=== PATIENT | male | born 1975 | race Caucasian/White ===

== ENCOUNTER 2021-02-12 10:49 | Outpatient (CLI) | payer OTHER, SELFPAY ==
[2021-02-12 11:20] LABS: Anion Gap 6 mmol/L (8-16); Blood Urea Nitrogen 22 mg/dL (9-20); Calcium 9.3 mg/dL (8.4-10.2); Carbon Dioxide 31 mmol/L (22-30); Chloride 103 mmol/L (98-107); Estimated Glomerular Filt Rate > 60; Glucose 109 mg/dL (65-110); Potassium 4.4 mmol/L (3.4-5.0); Sodium 140 mmol/L (137-145)
== END 2021-02-12 10:50 | disposition home or self-care (01) ==
LOC: ANHSURGERY 10:52
PROVIDERS: Anesthesiology; PCP Family Medicine; Visit Provider Surgery
DX: E11.9 Type 2 diabetes mellitus without complications (principal); Z01.818 Encounter for other preprocedural examination
CPT/HCPCS: 36415; 80048

== ENCOUNTER 2021-02-19 00:29 | Day surgery (SDC) | payer OTHER, SELFPAY ==
[2021-02-09 12:42] VITALS: BMI 29.2
[2021-02-19] VITALS (8 sets, daily range): BP systolic 101–128; BP diastolic 72–90; PULSE 62–87; RESP 12–16; TEMP 36.4–36.5; O2SAT 97–100; BMI 29.2
[2021-02-19 08:34] LABS: Glucose Point of Care 137 mg/dl (65-105)
--- NOTE | 2021-02-19 08:53 | WPDANESEPPF ---
Anes - Initial Pre Proc Eval Procedure: Operation Date: 02/19/21 10:00 Proposed Procedures p Excision Scalp Cyst Time Five - James Omer DO Date/Time: 02/19/21 08:53 Surgeon: James Omer DO Pre Op Diagnosis: multiple scalp cyst Patient Data Age: 45 Gender: M Height: 1.83 m Weight: 98 kg Allergies Allergy/AdvReac Type Severity Reaction Status Date / Time No Known Allergies Allergy Verified 02/09/21 12:38 Home Medications Medication Instructions Recorded Confirmed Type divalproex 500 mg tablet,extended 1,500 mg PO HS 01/18/21 02/09/21 History release 24 hr fenofibrate 50 mg capsule 50 mg PO HS 01/18/21 02/09/21 History metformin 1,000 mg tablet 1,000 mg PO HS 01/18/21 02/09/21 History rosuvastatin 20 mg tablet 20 mg PO HS 01/18/21 02/09/21 History melatonin 20 mg PO HS 02/09/21 02/09/21 History omeprazole 20 mg PO QA 02/09/21 02/09/21 History Laboratory Tests 02/19/21 08:30 POC Capillary Glucose 137 mg/dl H mg/dl (65-105) Patient hx anesthesia problems: none Family hx anesthesia problems: none Results Review: All pre-operative results and documents have been reviewed as part of the pre-operative evaluation. [facility] Past Medical History Medical History Asthma Bipolar disorder Depression Diabetes GERD (gastroesophageal reflux disease) High cholesterol Surgical History Surgical History H/O shoulder surgery Family History Family History Other Cancer Cerebrovascular accident Diabetes mellitus Hypertension Social History Social History Smoking packs per day: 0.5 Smoking cigarettes per day: 10.0 Years smoked: 12 Smoking pack-years: 6.00 Smoking status: Former smoker Tobacco type: cigarettes Smokeless tobacco user: chewing tobacco Smoking end date: 11/24/07 Alcohol intake: current Drinks per week: 16 Alcohol use details: social use Substance use: never Living arrangements: with family Additional living arrangements comments: , CHILD, NEPHEW 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 Informed Consent: The patient's anesthetic plan and its attendant risks and benefits were discussed with the patient/family/POA. Questions were solicited and answers provided to the satisfaction of the patient/family/POA.
[2021-02-19] MEDS: LACTATED RINGERS 1,000 ML 30 ML IV CONT ×2 (09:15→11:04)
--- NOTE | 2021-02-19 09:42 | PM.IMHP ---
H&P: HPI History of Present Illness Date/Time: 02/19/21 09:42 Chief Complaint: Scalp cysts Narrative: 45 yo man presents for excision of multiple scalp cysts. Denies any changes since last seen in office. Review of Systems Review of Systems: All systems reviewed & are unremarkable except as noted in HPI and below Constitutional: Constitutional: Denies chills, Denies fever(s), Denies headache(s) and Denies weight loss Eyes: Eyes: Denies change in vision ENT: Denies dizziness, Denies headache(s), Denies neck mass and Denies throat swelling Cardiovascular: Cardiovascular: Denies chest pain, Denies lightheadedness and Denies dyspnea Respiratory: Respiratory: Denies cough, Denies dyspnea and Denies wheezing Gastrointestinal: Gastrointestinal: Denies abdominal pain, Denies change in bowel habits, Denies nausea and Denies vomiting Genitourinary: Genitourinary: Denies hematuria and Denies dysuria Musculoskeletal: Musculoskeletal: Reports as per HPI Integumentary/Breasts: Skin/Breast: Reports as per HPI Neurologic: Denies dizziness and Denies headache(s) Allergic/Immunologic: Allergic/Immunologic: Denies throat swelling and Denies wheezing PMFSH Past Medical History Medical History Asthma Bipolar disorder Depression Diabetes GERD (gastroesophageal reflux disease) High cholesterol Surgical History Surgical History H/O shoulder surgery Family History Family History Other Cancer Cerebrovascular accident Diabetes mellitus Hypertension Social History Social History Smoking packs per day: 0.5 Smoking cigarettes per day: 10.0 Years smoked: 12 Smoking pack-years: 6.00 Smoking status: Former smoker Tobacco type: cigarettes Smokeless tobacco user: chewing tobacco Smoking end date: 11/24/07 Alcohol intake: current Drinks per week: 16 Alcohol use details: social use Substance use: never Living arrangements: with family Additional living arrangements comments: , CHILD, NEPHEW 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 Spiritual care concerns: No Meds Home Medications and Allergies Home Medications Medication Instructions Recorded Confirmed Type divalproex 500 mg tablet,extended 1,500 mg PO HS 01/18/21 02/09/21 History release 24 hr fenofibrate 50 mg capsule 50 mg PO HS 01/18/21 02/09/21 History metformin 1,000 mg tablet 1,000 mg PO HS 01/18/21 02/09/21 History rosuvastatin 20 mg tablet 20 mg PO HS 01/18/21 02/09/21 History melatonin 20 mg PO HS 02/09/21 02/09/21 History omeprazole 20 mg PO QA 02/09/21 02/09/21 History Allergies Allergy/AdvReac Type Severity Reaction Status Date / Time No Known Allergies Allergy Verified 02/19/21 09:37 Exam Const: General: no acute distress and alert Orientation/consciousness: patient oriented x3 HENMT: Head: normocephalic and atraumatic Ears: hearing grossly normal bilaterally General nose exam: Normal nares present Mouth: Yes Normal oral and palatal mucosa present Eyes: Periorbital: periorbital findings normal Sclera: sclerae normal EOM: EOMs intact bilaterally Neck: Neck: normal visual inspection, no lymphadenopathy and trachea midline Chest: Chest palpation & inspection: normal inspection of the chest Resp: Effort & Inspection: normal respiratory effort Auscultation: clear to auscultation bilaterally Cardio: Jugular venous distension: no JVD Rate: regular rate Rhythm: regular rhythm Heart sounds: S1 normal heart sound present and S2 normal heart sound present Peripheral pulses: Peripheral pulses 2+ throughout GI: Inspection: normal to inspection GI Palp: Yes Soft to palpation, No Tenderness to palpation present (GI), No Guarding due to palpation present
--- NOTE | 2021-02-19 09:50 | WPDHPUPDATE1 ---
History and Physical Update Update Date/Time: 02/19/21 09:50 History and Physical has been reviewed, including an updated exam of the patient. There are NO changes in the patient's condition. Risks, benefits, and alternatives have been discussed and questions answered. Patient agrees to proceed with procedure.
[2021-02-19] MEDS: ceFAZolin 2 GM/D5W 50 ML 2 GM/50 ML BAG IVPB (09:57)
[2021-02-19] MEDS: LIDO 1%/EPINEPHRINE/PF 1:200,000 30 ML VIAL XX (10:39)
[2021-02-19] MEDS: BACITRACIN/POLYMYXIN B OINT 15 GM TUBE 1 APPLIC TOPICAL (10:49)
--- NOTE | 2021-02-19 11:02 | W.PM.PROC2 ---
Procedure Note - Detailed Date of Procedure 02/19/21 Pre-op Diagnosis multiple scalp cyst Post-op Diagnosis same Procedure Performed Excision 2 cm scalp cyst Excision 1 cm scalp cyst x4 Surgeon James Omer, DO Anesthesia general and local (1% lidocaine with epinephrine) Indications This is a 45-year-old man who presented with multiple lumps on his scalp that had been present for about 10 years. These areas have gradually become larger over the years. He denies any prior history of infection or drainage. Discussions were made with the patient about treatment options and decision was made to proceed with excision of 5 scalp cysts. Findings Excision of the 5 scalp cysts was performed. One of the cysts was in the posterior auricular region but still within the hairline. The other 4 cysts were closer to the occiput. The largest cyst measured 2 cm, and the other 4 cysts measured 1 cm. All cysts were completely excised and sent to the lab for pathology. Description of Procedure Procedure as well as risks, benefits, and alternatives were discussed with the patient. Written consent was obtained and placed in chart prior to procedure. Patient was brought back to surgical suite. He was placed supine on operating table. Time-out was done to confirm patient and procedure. He was then placed under general anesthesia with LMA by the Anesthesia Department. His scalp area was then prepped and draped in sterile fashion using Betadine prep. 1% lidocaine with epinephrine was infiltrated locally around each of the cysts. A 1 cm incision was made overlying the right posterior auricular cyst with a 15 blade scalpel. The cyst was sharply excised with the 15 blade scalpel. The cyst was completely excised and sent to the lab for pathology. Electrocautery was then used for hemostasis. The skin edges were then reapproximated using 3-0 Prolene simple interrupted sutures. Another 1 cm incision was made over each of the other 3 scalp cysts using a 15 blade scalpel. All of these cysts were then also excised sharply with a 15 blade scalpel. Electrocautery was then used for hemostasis. The skin edges were then reapproximated using 3-0 Prolene simple interrupted sutures. The final 2 cm scalp cyst was then excised in a similar fashion. A 2 cm incision was made over this cyst using a 15 blade scalpel. The cyst was sharply excised and sent to the lab for pathology. Electrocautery was used for hemostasis. The skin edges were approximated using 3-0 Prolene simple interrupted sutures. All 5 incisions were then carefully inspected and hemostasis appeared adequate. Bacitracin ointment was then applied. The patient was then awakened from anesthesia, extubated, and transferred to recovery. Estimated Blood Loss 5 Pathology yes (Scalp cysts) Complications No immediate complications Condition stable Disposition same day
[2021-02-19 11:31] LABS: Glucose Point of Care 129 mg/dl (65-105)
[2021-02-19] MEDS: fentaNYL CITRATE INJ (*CRX) 100 MCG/2 ML VIAL 25 MCG IV PUSH ×2 (11:55→12:00)
[2021-02-19] MEDS: oxyCODONE HCL (*CRX) 5 MG TAB IR PO (12:50)
== END 2021-02-19 12:58 | disposition home or self-care (01) ==
PROVIDERS: PCP Family Medicine; Visit Provider Surgery
PROC: (CPT 11421; principal; 2021-02-19 10:00)
DX: L72.11 Pilar cyst (principal); J45.909 Unspecified asthma, uncomplicated; F31.9 Bipolar disorder, unspecified; K21.9 Gastro-esophageal reflux disease without esophagitis; E78.00 Pure hypercholesterolemia, unspecified; Z79.84 Long term (current) use of oral hypoglycemic drugs; F17.220 Nicotine dependence, chewing tobacco, uncomplicated
CPT/HCPCS: 11421; 11422; 36415; 80048; 82948; 88304; 88305; A9270; J0690; J1100; J2250; J2405; J2704; J3010; J7120

== ENCOUNTER 2021-12-07 01:22 | Day surgery (SDC) | payer OTHER, SELFPAY ==
[2021-11-22 14:09] VITALS: BMI 29.9
--- NOTE | 2021-12-06 15:35 | WPDANESEPPF ---
Anes - Initial Pre Proc Eval Procedure: Operation Date: 12/07/21 11:00 Proposed Procedures p Colonoscopy - Dewey Alexis MD <Oscar Del Castillo, DO - Last Filed: 12/06/21 15:36> Date/Time: 12/06/21 15:35 <Oscar Del Castillo, DO - Last Filed: 12/06/21 15:36> Surgeon: Dewey Alexis MD <Oscar Del Castillo, DO - Last Filed: 12/06/21 15:36> Pre Op Diagnosis: Rectal Bleed <Oscar Del Castillo DO - Last Filed: 12/06/21 15:36> Patient Data Age: 46 Gender: M Height: 1.83 m Weight: 100 kg <Oscar Del Castillo DO - Last Filed: 12/06/21 15:36> Allergies Allergy/AdvReac Type Severity Reaction Status Date / Time No Known Allergies Allergy Verified 12/07/21 09:52 <Oscar Del Castillo, DO - Last Filed: 12/06/21 15:36> Home Medications Medication Instructions Recorded Confirmed Type divalproex 500 mg tablet,extended 1,500 mg PO HS 01/18/21 12/07/21 History release 24 hr (Depakote ER) metformin 1,000 mg tablet 1,000 mg PO HS 01/18/21 12/07/21 History omeprazole 20 mg capsule,delayed 20 mg PO QAM 02/09/21 12/07/21 History release sodium sul 1.479 gram-potas ch See Rx Instructions PO PER PKG DIR 10/30/21 12/07/21 Rx 0.188 gram-magnes sul 0.225 gram #24 tabs tablet (Sutab) alprazolam 0.25 mg tablet (Xanax) 0.25 mg PO PRN PRN Anxiety 11/22/21 12/07/21 History fenofibrate 160 mg tablet 160 mg PO DAILY 11/22/21 12/07/21 History rosuvastatin 40 mg tablet 40 mg PO DAILY 11/22/21 12/07/21 History <Oscar Del Castillo, DO - Last Filed: 12/06/21 15:36> Patient hx anesthesia problems: none <Xuan Pineda CRNA - Last Filed: 12/07/21 10:22> Family hx anesthesia problems: none <Xuan Pineda CRNA - Last Filed: 12/07/21 10:22> Results Review: All pre-operative results and documents have been reviewed as part of the pre-operative evaluation. <Oscar Del Castillo DO - Last Filed: 12/06/21 15:36> [facility] Past Medical History Medical History: Medical History Asthma Bipolar disorder Depression Diabetes GERD (gastroesophageal reflux disease) High cholesterol <Oscar Del Castillo DO - Last Filed: 12/06/21 15:36> Surgical History Surgical History: Surgical History H/O excision of mass 02/19/21 Excision 2 cm scalp cyst, Excision 1 cm scalp cyst x4 H/O shoulder surgery <Oscar Del Castillo DO - Last Filed: 12/06/21 15:36> Family History Family History: Family History Other Cancer Cerebrovascular accident Diabetes mellitus Hypertension <Oscar Del Castillo DO - Last Filed: 12/06/21 15:36> Social History Social History: Social History Smoking packs per day: 0.5 Smoking cigarettes per day: 10.0 Years smoked: 12 Smoking pack-years: 6.00 Smoking status: Former smoker Tobacco type: cigarettes Smokeless tobacco user: chewing tobacco Smoking end date: 11/24/07 Alcohol intake: current Drinks per week: 16 Alcohol use details: social Substance use: never Substance use type: does not use Living arrangements: with family Additional living arrangements comments: , CHILD, NEPHEW 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
[2021-12-07 09:44] LABS: Glucose Point of Care 128 mg/dl (65-105)
[2021-12-07 09:50] VITALS: BP 119/85; PULSE 63; RESP 20; TEMP 36.3; O2SAT 98
[2021-12-07] MEDS: LACTATED RINGERS 1,000 ML 150 ML IV CONT (10:04)
--- NOTE | 2021-12-07 10:24 | PM.HPGS ---
History of Present Illness History of Present Illness Consent: Risks, benefits, and alternatives have been discussed and questions answered. Patient agrees to proceed with procedure. Chief complaint: Rectal Bleed Narrative: Judson Sena is a 46 year old male with intermittent blood in stool, last colonoscopy about 10 years ago. Father had colon cancer. Review of Systems Constitutional: Constitutional: Denies headache(s) and Denies weakness Eyes: Eyes: Denies blurry vision ENT: Reports Normal hearing present, Denies headache(s) and Denies neck pain Cardiovascular: Cardiovascular: Denies chest pain and Denies dyspnea Respiratory: Respiratory: Denies dyspnea Gastrointestinal: Gastrointestinal: Reports no additional gastrointestinal complaints Genitourinary: Genitourinary: Denies dysuria Musculoskeletal: Musculoskeletal: Denies neck pain Integumentary/Breasts: Skin/Breast: Denies dry skin Neurologic: Reports Normal hearing present, Denies headache(s) and Denies weakness Psychiatric: Psychiatric: Denies anxiety Endocrine: Endocrine: Denies change in body appearance Hematologic/Lymphatic: Hematologic/Lymphatic: Denies easy bleeding Allergic/Immunologic: Allergic/Immunologic: Denies urticaria PMF Past Medical History Medical History (Updated 12/07/21 @ 10:25 by Dewey Alexis MD) Asthma Bipolar disorder Depression Diabetes Family history of colon cancer in father GERD (gastroesophageal reflux disease) Hematochezia High cholesterol Surgical History Surgical History H/O excision of mass 02/19/21 Excision 2 cm scalp cyst, Excision 1 cm scalp cyst x4 H/O shoulder surgery Family History Family History Other Cancer Cerebrovascular accident Diabetes mellitus Hypertension Social History Social History Smoking packs per day: 0.5 Smoking cigarettes per day: 10.0 Years smoked: 12 Smoking pack-years: 6.00 Smoking status: Former smoker Tobacco type: cigarettes Smokeless tobacco user: chewing tobacco Smoking end date: 11/24/07 Alcohol intake: current Drinks per week: 16 Alcohol use details: social Substance use: never Substance use type: does not use Living arrangements: with family Additional living arrangements comments: , CHILD, NEPHEW 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 care concerns: No Meds Home Medications and Allergies Home Medications Medication Instructions Recorded Confirmed Type divalproex 500 mg tablet,extended 1,500 mg PO HS 01/18/21 12/07/21 History release 24 hr (Depakote ER) metformin 1,000 mg tablet 1,000 mg PO HS 01/18/21 12/07/21 History omeprazole 20 mg capsule,delayed 20 mg PO QAM 02/09/21 12/07/21 History release sodium sul 1.479 gram-potas ch See Rx Instructions PO PER PKG DIR 10/30/21 12/07/21 Rx 0.188 gram-magnes sul 0.225 gram #24 tabs tablet (Sutab) alprazolam 0.25 mg tablet (Xanax) 0.25 mg PO PRN PRN Anxiety 11/22/21 12/07/21 History fenofibrate 160 mg tablet 160 mg PO DAILY 11/22/21 12/07/21 History rosuvastatin 40 mg tablet 40 mg PO DAILY 11/22/21 12/07/21 History Allergies Allergy/AdvReac Type Severity Reaction Status Date / Time No Known Allergies Allergy Verified 12/07/21 09:52 Vital Signs Vital Signs - 24 hr 12/07/21 09:50 Temperature 97.4 F L Pulse Rate 63 Respiratory Rate 20 Blood Pressure 119/85 Pulse Oximetry 98 Oxygen Delivery Room Air Exam Const: General: comfortable and no acute distress HENMT: General nose exam: Normal nares present Eyes: General: appearance normal, both eyes and all related structures Neck: Neck: no JVD Resp: Auscultation: clear to auscultation bilaterally Cardio: Rate: regular rate Rhythm: regular rhythm GI: Inspection: non-
[2021-12-07 10:44] VITALS: BP 114/82; PULSE 73; RESP 22; O2SAT 97
[2021-12-07 10:54] VITALS: BP 117/84; PULSE 62; RESP 23; O2SAT 100
[2021-12-07 11:04] VITALS: BP 131/94; PULSE 61; RESP 19; O2SAT 99
== END 2021-12-07 11:12 | disposition home or self-care (01) ==
PROVIDERS: PCP Family Medicine; Visit Provider Internal Medicine Gastroenterology
PROC: 0DJD8ZZ Inspection of Lower Intestinal Tract, Via Natural or Artificial Opening Endoscopic (ICD-10-PCS; CPT 45378; principal; 2021-12-07 11:00)
DX: K51.20 Ulcerative (chronic) proctitis without complications (principal); K57.30 Diverticulosis of large intestine without perforation or abscess without bleeding; K64.8 Other hemorrhoids; Z80.0 Family history of malignant neoplasm of digestive organs; F31.9 Bipolar disorder, unspecified; E11.9 Type 2 diabetes mellitus without complications; K21.9 Gastro-esophageal reflux disease without esophagitis; E78.00 Pure hypercholesterolemia, unspecified; Z79.84 Long term (current) use of oral hypoglycemic drugs; F17.220 Nicotine dependence, chewing tobacco, uncomplicated
CPT/HCPCS: 45380; 82948; 88305; J2704; J7120

== ENCOUNTER 2023-09-07 11:56 | Inpatient (IN) | payer OTHER, SELFPAY ==
[2023-09-07] VITALS (8 sets, daily range): BP systolic 94–127; BP diastolic 61–96; PULSE 67–79; RESP 12–18; TEMP 36.1–36.5; O2SAT 97–100; BMI 24.2
--- NOTE | ~2023-09-07 | US_ITS ---
EXAMINATION: US abdomen limited DATE: 09/07/2023 12:56 INDICATION: Abdominal/epigastric pain. TECHNIQUE: Multiple grayscale and Doppler ultrasound images of the abdomen were obtained. COMPARISON: The visualized body and tail of the pancreas appear heterogeneous with relatively hypoech oic which could be seen with edema in the setting of acute interstitial pancreatitis. Liver has michelle l echogenicity and contour, with a smooth surface. No liver lesion identified. No intrahepatic biliar y duct dilation suspected. Portal venous flow was seen in the hepatopetal, normal direction and has n ormal Doppler waveform. The gallbladder is normal in appearance. There is no cholelithiasis. The com mon bile duct measures 4 mm, which is normal. Sonographic Steward sign was reported as negative by the patient support partner.The visualized proximal inferior vena cava is normal. Abdominal aorta is normal measurin g approximately 2.2 cm approximately tapering to 1.6 cm the distal aorta. Visualized portion of the r ight kidney demonstrates normal echogenicity and contour with no hydronephrosis. FINDINGS: Heterogeneously hypoechoic pancreas which could be seen with acute interstitial pancreatitis. Otherwi se unremarkable right upper quadrant ultrasound with no cholelithiasis. IMPRESSION: 1. Reviewed, dictated and finalized at location A. IMPRESSION: 1.
--- NOTE | ~2023-09-07 | CT_ITS ---
EXAMINATION: CT abdomen pelvis w con DATE: 09/07/2023 13:00 INDICATION: Abdominal pain TECHNIQUE: Computed tomography (CT) of the abdomen and pelvis was performed with 100 mL Omnipaque-350 intravenous contrast. Automated exposure control and iterative reconstruction technique were employe d. The dose-length product was 487.86 mGy-cm. COMPARISON: None FINDINGS: Lung bases are clear. Heart size is normal. No pericardial or pleural effusion. Focal hepatic steatos is at the ligamentum teres. Gallbladder, spleen, bilateral adrenal glands and kidneys are normal. Yee creas appears normal but with subtle stranding of the peripancreatic fat consistent with acute inters titial pancreatitis. No discrete peripancreatic fluid collections identified. There is diffuse edemat ous-appearing wall thickening in the rectum and sigmoid colon consistent with colitis. Multiple mildl y enlarged perirectal and inferior mesenteric chain lymph nodes which are likely reactive. The gas an d fluid-filled appendix measures up to 9 mm with mild thickening and hyperemia of the appendiceal wal l and mild associated inflammatory stranding also raising concern for acute appendicitis. Additional enlarged pericecal and ileocolic chain lymph nodes which extend cephalad to the root of the mesentery . No bowel obstruction. Bladder is normal. Prostatomegaly. No abscess or free intraperitoneal gas or fluid. Mild bilateral hip and sacral iliac osteoarthritis. IMPRESSION: 1. Acute interstitial pancreatitis. 2. Distal colitis which could be either infectious or inflammatory in etiology. 3. Findings suspicious for acute appendicitis. . 4. Extensive intra-abdominal and pelvic lymphadenopathy which could be reactive although differential includes lymphoma or metastatic disease. Reviewed, dictated and finalized at location A.
--- NOTE | 2023-09-07 12:13 | ED.ABDPAIN ---
HPI - Abdominal Pain General Chief Complaint: Abdominal Pain Stated Complaint: abd pain Time Seen by Provider: 09/07/23 12:13 History of Present Illness HPI narrative: Patient is a 48-year-old male with history of type 2 diabetes I taking monjourno, suspected IBD, currently not taking any medications here with abdominal pain. Patient states that for the last month he has had intermittent flares of abdominal pain. He states that the current flare has been present for about 1 week, is diffuse and last night and this morning had episodes of sharp epigastric abdominal pain. He describes it as a ?burning sensation ?throughout his abdomen. He denies any fever or chills. He has had some weight loss but was additionally started on monjourno so he is unsure if that was a contributing factor. He notes that he has approximately 5-10 loose stools a day, he notes that every other stool has blood in the stool. He does wake up during the middle the night to have bowel movements. Appears he saw Dr. Montes, was scoped in 2021, suspected to have IBD, was initially on mesalamine, it was discussed to start him on Humira however patient was unsure and he had been lost to follow-up. He is not currently taking any medications. He does note that he has an appointment with Dr. Montes tomorrow. He denies dysuria, notes decreased urinary output due to feeling dehydrated. He does note significant nausea, no vomiting. Patient's last PO intake was around 10:30 am when he drank a protein shake. Related Data Home Medications Medication Instructions Recorded Confirmed divalproex 500 mg tablet,extended 1,500 mg PO HS 01/18/21 01/03/22 release 24 hr (Depakote ER) metformin 1,000 mg tablet 1,000 mg PO HS 01/18/21 01/03/22 omeprazole 20 mg capsule,delayed 20 mg PO QAM 02/09/21 01/03/22 release alprazolam 0.25 mg tablet (Xanax) 0.25 mg PO PRN PRN Anxiety 11/22/21 01/03/22 fenofibrate 160 mg tablet 160 mg PO DAILY 11/22/21 01/03/22 pravastatin 20 mg tablet 20 mg PO DAILY 01/03/22 01/03/22 Allergies Allergy/AdvReac Type Severity Reaction Status Date / Time No Known Allergies Allergy Verified 04/04/22 14:12 Review of Systems Review of Systems: All systems reviewed & are unremarkable except as noted in HPI and below PMFSH Past Medical History Medical History (Updated 09/07/23 @ 15:26 by Allie Eller APRN) Asthma Bipolar disorder Depression Diabetes Family history of colon cancer in father GERD (gastroesophageal reflux disease) Hematochezia High cholesterol Proctitis Surgical History Surgical History H/O excision of mass 02/19/21 Excision 2 cm scalp cyst, Excision 1 cm scalp cyst x4 H/O shoulder surgery Family History Family History Other Cancer Cerebrovascular accident Diabetes mellitus Hypertension Social History Social History Smoking packs per day: 0.5 Smoking cigarettes per day: 10.0 Years smoked: 12 Smoking pack-years: 6.00 Smoking status: Former smoker Tobacco type: cigarettes Smokeless tobacco user: chewing tobacco Smoking end date: 11/24/07 Alcohol intake: current Drinks per week: 16 Alcohol use details: social Substance use: never Substance use type: does not use Living arrangements: with family Additional living arrangements comments: , CHILD, NEPHEW Occupation/Education: occupation 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 HEAD: Normocephalic, atraumatic. EYES: PERRLA and EOMI. ENT: Nares clear. Mucous membranes moist. NECK: Supple. CHEST: Clear to auscultation. No respiratory distress. HEART: Regular rate and rhythm. Normal peripheral pulses. ABDOMEN: Soft, epigastr
[2023-09-07 12:28] LABS: Appearance Urine Clear (Clear); Bilirubin Urine Negative (Negative); Blood Urine Negative (Negative); Color Urine Yellow (Yellow); Glucose Urine UA 2+ mg/dL (Negative); Ketones Urine Negative (Negative); Leukocyte Esterase Ur Negative LEU/UL (Negative); Nitrate Urine Negative (Negative); Protein Urine Negative (Negative); Specific Grav Ur 1.026 (1.001-1.035); Urobilinogen Urine 0.2 mg/dL (<2.0)
[2023-09-07 12:30] LABS: Add Urine Microscopic? NO
[2023-09-07 12:35] LABS: Basophils Absolute Auto 0.1 K/mm3 (0.0-0.1); Basophils Percent Auto 0.4 % (0.2-1.2); Eosinophils Absolute Auto 0.4 K/mm3 (0-0.3); Eosinophils Percent Auto 3.7 % (0-4.4); Hematocrit 41.1 % (42.0-52.0); Hemoglobin 13.5 g/dL (14.0-18.0); Immature Granulocyte Absolute 0.14 K/mm3 (0.00-0.031); Immature Granulocyte Percent A 1.3 % (0-0.5); Lymphocytes Absolute Auto 2.39 K/mm3 (0.9-3.2); Lymphocytes Percent Auto 21.5 % (18.3-44.2); Mean Corpuscular HGB Conc 32.8 g/dl (32-36); Mean Corpuscular Hemoglobin 29.1 pg (26-34); Mean Corpuscular Volume 88.6 fl (80-100); Mean Platelet Volume 10.2 fl (7.4-10.4); Monocytes Percent Auto 9.2 % (2.6-8.5); Neutrophils Absolute Auto 7.1 K/mm3 (1.3-6.7); Neutrophils Percent Auto 63.9 % (45.5-73.1); Platelet Count Result 302 k/mm3 (150-375); Red Blood Count 4.64 M/mm3 (4.6-6.20); Red Cell Distribution Width 12.4 % (11.5-14.5); White Blood Count 11.1 K/mm3 (4.5-10.0)
[2023-09-07 12:48] LABS: Lactic Acid Reflex 1.4 mmol/L (0.7-2.0)
[2023-09-07 12:50] LABS: Alanine Aminotransferase 12 U/L (6-50); Albumin Level 4.5 g/dL (3.5-5.1); Alkaline Phosphatase 53 U/L (38-126); Anion Gap 10 mmol/L (4-12); Aspartate Amino Transferase 15 U/L (17-59); Bilirubin,Total 0.4 mg/dL (0.2-1.3); Blood Urea Nitrogen 15 mg/dL (9-20); CRP 1.2 mg/dL (<1.0); Calcium 9.6 mg/dL (8.4-10.2); Carbon Dioxide 25 mmol/L (22-30); Chloride 103 mmol/L (98-107); Estimated CRCL calculation 110 ml/min; Estimated Glomerular Filt Rate > 60; Glucose 202 mg/dL (65-110); Lipase 707 U/L (23-300); Potassium 4.3 mmol/L (3.4-5.0); Sodium 138 mmol/L (137-145)
[2023-09-07] MEDS: LACTATED RINGERS 1,000 ML 999 ML IV CONT (13:10)
[2023-09-07] MEDS: MORPHINE SULFATE (*CRX) 4 MG/ML INJ IV PUSH (13:10)
[2023-09-07] MEDS: ONDANSETRON INJ 4 MG/2 ML VIAL IV PUSH (13:10)
--- NOTE | 2023-09-07 14:23 | PM.IMHP ---
H&P: HPI History of Present Illness Date/Time: 09/07/23 14:23 Chief Complaint: Abdominal Pain Narrative: 48 y/o M presents here with abdominal pain with PMH of IBD, diverticulosis, GERD, HLD, DM2, asthma, depression, and bipolar disorder. Patient presents here for further evaluation of intermittent abdominal pain for the past 2 years and more pronounced in the last month. However the abdominal pain has become constant for the past week, severe, upper abdomen, diffuse, described as crampy/burning, and with radiation into his shoulder blades. No alleviating or aggravating factors. Reports weight loss - 50 lbs, however is on Mounjaro 6-9 months ago. Titrated to 0.75 1 month ago. Has been experiencing 5-10 loose stools daily, BRB NE with clots and no dark/black stools. Stools have become holley in the last 2 weeks. Nighttime awakenings for bowel movements - has been ongoing since diagnosis of IBD and is intermittent. Reports associated dehydration, nausea without vomiting, and reduced urinary output in the last week. No associated hematuria or dysuria. Patient follows with Dr. Montes (GI) at [facility], last scope in 2021 which showed suspected IBD. Has been on mesalamine, GI discussed starting Humira with patient, however he was hesitant to start this medication and was lost to follow-up. Patient was not happy with care because lifestyle and diet were not presented as potential alternatives to meds. Does have scheduled follow-up with Dr. Montes tomorrow. Reports he is not currently on any medications for his IBD. ETOH hx - weekends patient would drink to excess at least one night for the past 25 years and now drinks one night per week and its 1-2 drinks only. Initial VS at presentation: 97.7? F, HR 79, RR 14, 126/96, and 100% on RA. ED workup showed: WBC 11.1, Hgb 13.5, no significant electrolyte derangements, glucose 202, creatinine 0.8 and GFR >60, AST 15, CRP 1.2, and lipase 707. UA not suggestive of UTI. There CT abdomen/pelvis showed acute interstitial pancreatitis, distal colitis, possible acute appendicitis, and extensive intra-abdominal and pelvic lymphadenopathy. Review of Systems Review of Systems: All systems reviewed & are unremarkable except as noted in HPI and below PMFSH Past Medical History Medical History (Updated 09/08/23 @ 00:38 by Allie Eller APRN) Asthma Bipolar disorder Depression Diabetes Familial hypertriglyceridemia Family history of colon cancer in father GERD (gastroesophageal reflux disease) Hematochezia Proctitis Surgical History Surgical History H/O excision of mass 02/19/21 Excision 2 cm scalp cyst, Excision 1 cm scalp cyst x4 H/O shoulder surgery Family History Family History Other Cancer Cerebrovascular accident Diabetes mellitus Hypertension Social History Social History Smoking packs per day: 0.5 Smoking cigarettes per day: 10.0 Years smoked: 12 Smoking pack-years: 6.00 Smoking status: Current every day smoker Tobacco type: e-cigarettes/vaping Smokeless tobacco user: chewing tobacco Alcohol intake: current Drinks per week: 16 Alcohol use details: social Substance use: never Substance use type: does not use Do You Feel Safe in your Home?: Yes Lack of Transportation: No Lack of Food: Never True Current Housing: I Have Housing Concerned About Future Housing: No Difficulty Paying Gas/Electric Bills: No Difficulty Paying for Meds: No Currently Unemployed: No Education: Decline to Answer Difficulty w/ Childcare or Family Care: No Living arrangements: with family Additional living arrangements comments: , CHILD, [place] Occupation/Education: occupation 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
[2023-09-07] MEDS: PIPERACILLIN/TAZ 4.5G/NS 100ML 4.5 GM/100 ML BAG IVPB (14:39)
--- NOTE | 2023-09-07 16:01 | PC.NURSE ---
This patient, Judson Sena, was admitted to [facility] Surg Room 328-01. Patient/family oriented to hospital policies and general routines including ID bracelet, bed and alarms, visiting hours, pain management, procedures, bathroom and other care routines, personal items, smoking policy, room service/diet, and visiting hours. Information on how to activate the Rapid Response Team has been discussed. Patient/Family are encouraged to report perceived risks to care and to ask questions if they do not understand what they are told or what they should do.
[2023-09-07] MEDS: LACTATED RINGERS 1,000 ML 100 ML IV CONT (16:22)
[2023-09-07] MEDS: MORPHINE SULFATE (*CRX) 2 MG/ML INJ IV PUSH (16:23)
[2023-09-07] MEDS: PIPERACILLN/TAZ 3.375GM/NS50ML 3.375 GM/50 ML BAG IVPB (20:32)
[2023-09-07] MEDS: NICOTINE (*PBKC) 14 MG PATCH 1 PATCH TRANSDERM (22:11)
[2023-09-07] MEDS: HYDROcodone/acetaminophen (*CRX) 5-325 MG TABLET 1 TAB PO (22:15)
[2023-09-08] MEDS: PIPERACILLN/TAZ 3.375GM/NS50ML 3.375 GM/50 ML BAG IVPB ×4 (00:24→18:04)
[2023-09-08] MEDS: LACTATED RINGERS 1,000 ML 100 ML IV CONT (04:05)
[2023-09-08] MEDS: MORPHINE SULFATE (*CRX) 2 MG/ML INJ IV PUSH (05:04)
[2023-09-08 06:00] VITALS: BP 129/63; PULSE 73; RESP 18; TEMP 36.5; O2SAT 97
[2023-09-08 06:00] LABS: Basophils Percent Auto 0.3 % (0.2-1.2); Eosinophils Absolute Auto 0.4 K/mm3 (0-0.3); Eosinophils Percent Auto 3.5 % (0-4.4); Hematocrit 34.1 % (42.0-52.0); Immature Granulocyte Absolute 0.07 K/mm3 (0.00-0.031); Immature Granulocyte Percent A 0.6 % (0-0.5); Lymphocytes Absolute Auto 1.81 K/mm3 (0.9-3.2); Lymphocytes Percent Auto 16.7 % (18.3-44.2); Mean Corpuscular HGB Conc 32.3 g/dl (32-36); Mean Corpuscular Hemoglobin 29.3 pg (26-34); Mean Corpuscular Volume 90.7 fl (80-100); Mean Platelet Volume 10.6 fl (7.4-10.4); Monocytes Absolute Auto 1.1 K/mm3 (0.1-0.6); Monocytes Percent Auto 10.1 % (2.6-8.5); Neutrophils Absolute Auto 7.4 K/mm3 (1.3-6.7); Neutrophils Percent Auto 68.8 % (45.5-73.1); Platelet Count Result 253 k/mm3 (150-375); Red Blood Count 3.76 M/mm3 (4.6-6.20); Red Cell Distribution Width 12.2 % (11.5-14.5); White Blood Count 10.8 K/mm3 (4.5-10.0)
[2023-09-08 06:15] LABS: Alanine Aminotransferase 13 U/L (6-50); Albumin Level 3.6 g/dL (3.5-5.1); Alkaline Phosphatase 44 U/L (38-126); Anion Gap 8 mmol/L (4-12); Aspartate Amino Transferase 17 U/L (17-59); Bilirubin,Total 0.5 mg/dL (0.2-1.3); Blood Urea Nitrogen 13 mg/dL (9-20); Calcium 9.1 mg/dL (8.4-10.2); Carbon Dioxide 26 mmol/L (22-30); Chloride 103 mmol/L (98-107); Cholesterol 117 mg/dL (0-200); Estimated CRCL calculation 90 ml/min; Estimated Glomerular Filt Rate > 60; Glucose 129 mg/dL (65-110); HDL Direct 30 mg/dL; Lipase 550 U/L (23-300); Sodium 137 mmol/L (137-145); Triglycerides 149 mg/dL (<150)
[2023-09-08 06:26] LABS: LDL Cholesterol Direct 66 mg/dL
[2023-09-08 07:48] LABS: Glucose Point of Care 116 mg/dl (65-105)
[2023-09-08] MEDS: PANTOPRAZOLE SODIUM IV 40 MG VIAL IV PUSH (07:51)
[2023-09-08] MEDS: FENOFIBRATE 160 MG TABLET PO (07:51)
[2023-09-08] MEDS: NICOTINE (*PBKC) 14 MG PATCH 1 PATCH TRANSDERM (07:51)
--- NOTE | 2023-09-08 08:08 | P.CONGI_ITS ---
I, Dewey Alexis MD, have provided a substantive portion of the care of this patient and discussed the patient with my Nurse Practitioner. I have reviewed any new relevant radiographic and laboratory results including medications. I agree with her documentation as noted below.?I personally performed the medical decision making and much of the history and exam for this encounter. briefly, he was diagnosed with ulcerative proctitis 2021, used mesalamine briefly without improvement. Then I suggested to use biologic such as humira but he was reluctant about it and never came back. He has been having urgency, rectal bleeding and diarrhea daily for last year 7-8 times a day, lately more discomfort and abdominal pain. Here also diagnosed with distal colitis and pancreatitis, he drinks alcohol but mostly weekends. Here noted more anemia than baseline, started on iv abx, surgery on board (abdomen is benign, no clinical signs of appy), he is comfortable and already tolerated liquid diet. Plan is to use mesalamine enema, pending stool culture, probably will give one dose iv steroid (he has DM and I prefer without steroid), pending TB and HBV status- this time around he is agreeable to use biologic, he is ok with humira (he was using mounjaro for DM)- this medication also was discontinued given his GI symptoms. Advance diet and probably home soon, will need colonoscopy in 3-4 weeks and will submit to his insurance humira, other option is velsipity to treat proctitis Assessment and Plan Assessment and plan (1) Abnormal finding on CT scan: Code(s): R93.89 - Abnormal findings on diagnostic imaging of other specified body structures Status: Acute (2) Pancreatitis: Code(s): K85.90 - Acute pancreatitis without necrosis or infection, unspecified Status: Acute (3) Colitis: Code(s): K52.9 - Noninfective gastroenteritis and colitis, unspecified Status: Acute (4) Abdominal pain: Code(s): R10.9 - Unspecified abdominal pain Status: Acute (5) Family history of colon cancer: Code(s): Z80.0 - Family history of malignant neoplasm of digestive organs Status: Acute Plan 1) Abdominal pain/ abnormal imaging digestive / ulcerative proctitis/ diarrhea / hematochezia/ family Hx of colon cancer: Last colonoscopy 12/07/2021 showed diverticulosis, ulcerative proctitis and internal hemorrhoids. Family Hx of colon cancer ( father dx in his 50's) and gastric cancer ( paternal grandfather). Patient took oral mesalamine for 2 months before self disco ntinuing due to lack of symptom improvement. He has been trying to manage symptoms with diet and probiotics. He has been having increasing episodic abdominal pain over the past month, last episode of severe pain was on Friday prior to admission. Abdominal pain has been BUQ and radiating to his lower abdomen. He is having 5-10 liquid BM's daily with urgency and occasional fecal incontinence and nocturnal diarrhea. He is having painless bright red blood and clots per rectum with almost every BM. Denies fever or joint pain. Symptoms seemed to increase after his Mounjaro dose was increased, last injection was [address] on admission showed distal colitis, possible acute appendicitis, and extensive intra-abdominal and pelvic lymphadenopathy. CRP mildly elevated at 1.2. Gallbladder in situ. Hepatitis panel was negative in March 2023, TB testing not completed. -Continue antibiotics -Stool studies ordered to rule out infectious etiology, if negative will consider starting steroids -Calprotectin, elastase, ESR ordered -Daily mesalamine enemas ordered -Discussed outpatient follow up for IBD management and discuss the possible
--- NOTE | 2023-09-08 08:08 | WPDGICN ---
Assessment and Plan Assessment and plan (1) Abnormal finding on CT scan: Code(s): R93.89 - Abnormal findings on diagnostic imaging of other specified body structures Status: Acute (2) Pancreatitis: Code(s): K85.90 - Acute pancreatitis without necrosis or infection, unspecified Status: Acute (3) Colitis: Code(s): K52.9 - Noninfective gastroenteritis and colitis, unspecified Status: Acute (4) Abdominal pain: Code(s): R10.9 - Unspecified abdominal pain Status: Acute (5) Family history of colon cancer: Code(s): Z80.0 - Family history of malignant neoplasm of digestive organs Status: Acute Plan 1) Abdominal pain/ abnormal imaging digestive / ulcerative proctitis/ diarrhea / hematochezia/ family Hx of colon cancer: Last colonoscopy 12/07/2021 showed diverticulosis, ulcerative proctitis and internal hemorrhoids. Family Hx of colon cancer ( father dx in his 50's) and gastric cancer ( paternal grandfather). Patient took oral mesalamine for 2 months before self discontinuing due to lack of symptom improvement. He has been trying to manage symptoms with diet and probiotics. He has been having increasing episodic abdominal pain over the past month, last episode of severe pain was on Friday prior to admission. Abdominal pain has been BUQ and radiating to his lower abdomen. He is having 5-10 liquid BM's daily with urgency and occasional fecal incontinence and nocturnal diarrhea. He is having painless bright red blood and clots per rectum with almost every BM. Denies fever or joint pain. Symptoms seemed to increase after his Mounjaro dose was increased, last injection was [address] on admission showed distal colitis, possible acute appendicitis, and extensive intra-abdominal and pelvic lymphadenopathy. CRP mildly elevated at 1.2. Gallbladder in situ. Hepatitis panel was negative in March 2023, TB testing not completed. -Continue antibiotics -Stool studies ordered to rule out infectious etiology, if negative will consider starting steroids -Calprotectin, elastase, ESR ordered -Daily mesalamine enemas ordered -Discussed outpatient follow up for IBD management and discuss the possible need to start a biologic. -Surgery on the case for possible appendicitis -TB QuantiFERON ordered 2) Pancreatitis: CT showed acute interstitial pancreatitis. Lipase improving since admission 707-->550. Patient admits to bilateral upper abdominal pain that recently seemed to get worse after eating fatty foods. LFT's normal. Pain has improved but not resolved since admission. Patient admits to social alcohol use more on the weekends but has been decreasing alcohol use recently. -Continue supportive care 3) Reflux: Patient admits to reflux that has been well controlled with omeprazole 20 mg BID. Patient has never had an EGD. -Continue PPI -T/C outpatient EGD which we can further discuss during outpatient visit GI Consult Note Consult date/time: 09/08/23 08:08 Reason for consult: Pancreatitis and proctitis HPI: Judson Sena is a 48 year old male who presented to the ER yesterday with complaints of acute on chronic abdominal pain. Past medical surgical history includes asthma, bipolar disorder, depression, diabetes, GERD and family history of colon cancer. GI consult for pancreatitis proctitis noted on imaging. Patient was last seen by GI during a hospitalization in November 2021 at which time he had a colonoscopy and was diagnosed with ulcerative proctitis. Patient was prescribed mesalamine 2.4 gm daily which he took for around 2 months before self discontinuing and he has been trying to manage symptoms with diet and probiotics. Labs were recently ordered for biologic work up and Hepatitis panel negative, TB not completed. Patient admits to abdominal pain that has been mostly in his upper abdomen but can radiate throughout his abdomen. Admits to intermittent nausea without vomiting that gets wors
[2023-09-08] MEDS: ACETAMINOPHEN 325 MG TABLET 650 MG PO (10:14)
--- NOTE | 2023-09-08 10:39 | PM.CNGS ---
Assessment and Plan Assessment and plan (1) Colitis: Code(s): K52.9 - Noninfective gastroenteritis and colitis, unspecified Status: Acute Assessment and Plan: Continue antibiotics, GI consulted, stool studies pending (2) Pancreatitis: Code(s): K85.90 - Acute pancreatitis without necrosis or infection, unspecified Status: Acute Assessment and Plan: Etiology unclear. No cholelithiasis on ultrasound. Could be related to alcohol use, although patient states he has decreased his alcohol use significantly over the past year. Recommended still to stop drinking. Triglycerides normal. Although rare, could be related to his diabetic medication, he is taking a GLP-1 agonist. Could be worth switching to a different diabetic medication to eliminate this as a potential etiology. Management per hospitalist. Lipase trending down to 500 today. Continue IV fluids, okay to start clear liquids. (3) Abnormal finding on CT scan: Code(s): R93.89 - Abnormal findings on diagnostic imaging of other specified body structures Status: Acute Assessment and Plan: CT scan shows acute interstitial pancreatitis, colitis of the sigmoid colon and rectum, and a mildly dilated appendix with mild inflammatory changes that are suspicious for acute appendicitis. Clinically, the patient's presentation and exam correlate more with a flare-up of his IBD, as well as pancreatitis. He is mostly tender across the upper abdomen on exam. No significant right lower quadrant abdominal tenderness, and no peritoneal signs. Discussed treatment options with the patient in detail. Given his presentation and other acute issues, it would be reasonable to treat conservatively with IV antibiotics and closely monitor. Will continue to monitor with serial abdominal exams and labs. Patient understands and agrees. No plans for surgical intervention at this time. Okay to start a diet from our standpoint. (4) Diabetes: Code(s): E11.9 - Type 2 diabetes mellitus without complications Status: Acute Plan I have discussed the patient's case and plan of care with Dr. Mckenzie. Thank you for allowing us to see the patient in consultation and we will continue to follow along with you. History of Present Illness Consult details Consult date: 09/08/23 Reason for consult: other (Possible appendicitis) Requesting physician: Ronda Dumont MD Narrative: This is a 48-year-old man with a history of IBD, type 2 diabetes, who we have been asked to see in surgical consultation for possible appendicitis. He had a colonoscopy in 2021 that showed ulcerated proctitis. He was started on mesalamine. He fell out of follow-up with GI and tried to alter his diet. He also has a history of type 2 diabetes and was started on tirzepatide about a year ago. He has lost 60 lbs in the last year and attributed this to the medication. Over the past month, he reports more cramping abdominal pain and worsening diarrhea. He reports always having diarrhea, but has recently notice more blood in his stool. Over the past week, symptoms have become more severe. He was having more epigastric and upper abdominal pain. He reports the pain as burning pain radiating across his upper abdomen and burning. No nausea or vomiting. He presented to the ER yesterday for his persistent symptoms. Labs showed a white blood cell count 06005, CRP 1.2, lipase 700. LFTs normal. CT scan of the abdomen and pelvis showed acute interstitial pancreatitis, distal colitis of the sigmoid and rectum, extensive intra-abdominal and pelvic lymphadenopathy which could be reactive or other differential includes lymphoma or metastatic disease, and findings is for acute appendicitis. Patient was admitted and started on IV Zosyn and IV fluids. He is currently NPO. Labs this morning shows white blood cell count was down to the 10,000 and lipase 550. Triglycerides normal. He denies a history of pancreatitis. He repor
[2023-09-08 11:34] LABS: Glucose Point of Care 103 mg/dl (65-105)
[2023-09-08 12:03] LABS: Erythrocyte Sedimentation Rate 16 mm/hr (0-20)
[2023-09-08 13:34] VITALS: BMI 24.2
[2023-09-08 14:00] VITALS: BP 102/58; PULSE 62; RESP 16; TEMP 36.5; O2SAT 99
[2023-09-08 14:30] VITALS: BMI 24.2
[2023-09-08 16:42] LABS: Glucose Point of Care 134 mg/dl (65-105)
--- NOTE | 2023-09-08 17:03 | PM.IMPN ---
Progress Note: A&P Assessment and Plan (1) Family history of colon cancer: Code(s): Z80.0 - Family history of malignant neoplasm of digestive organs Status: Acute (2) Abdominal pain: Code(s): R10.9 - Unspecified abdominal pain Status: Acute (3) Diabetes: Code(s): E11.9 - Type 2 diabetes mellitus without complications Status: Acute (4) Abnormal finding on CT scan: Code(s): R93.89 - Abnormal findings on diagnostic imaging of other specified body structures Status: Acute (5) Colitis: Code(s): K52.9 - Noninfective gastroenteritis and colitis, unspecified Status: Acute (6) Pancreatitis: Code(s): K85.90 - Acute pancreatitis without necrosis or infection, unspecified Status: Acute Plan Discontinue fluids. Patient is tolerating clear liquid diet. Continue Zosyn. Appreciated and agree with GI and general surgery consultations. He takes metformin and Mounjaro for diabetes. His HbA1c 6%. He has lost 50 lb. Thinks it is in fact too much weight loss. Patient advised to discontinue Mounjari and find alternative however he will discuss with his PCP on this. Metformin can cause diarrhea so discontinuing that is also a consideration however workup can ensue for the ulcerative proctitis/diarrhea/colitis. Patient reports his awareness of alcohol as a causative factor for pancreatitis. He is amenable to quitting and has already cut down. He will be seeing a dietitian as an outpatient to continue good diet modification for diabetes IBS and pancreatitis Continue nicotine patch FEN: Saline lock IV. Clear liquid diet GI prophylaxis: Protonix 40 mg IV q.a.m. DVT prophylaxis: SCDs. Encourage ambulation Lines: Peripheral IV Code Status: Full code Dispo: Stable. Subjective Date/time seen: 09/08/23 17:03 Interval history: No acute overnight events. The patient sit at the edge of his bed playing a card game with the son and his . He reports his abdominal pain is 2/10 discomfort, much improved. Still has the persistent diarrhea. Review of Systems Review of Systems: All systems reviewed & are unremarkable except as noted in HPI and below (Subjective) Exam Const: General: comfortable and no acute distress Other: A&O x3 Eyes: Pupils: Equal, round and reactive pupils present Neck: Neck: supple Resp: Effort & Inspection: normal respiratory effort Auscultation: clear to auscultation bilaterally Cardio: Rate: regular rate Rhythm: regular rhythm GI: Inspection: non-distended GI Palp: Yes Soft to palpation and No Tenderness to palpation present (GI) Auscultation: normal bowel sounds Extrem: General: no edema Objective Data Vital Signs Vital Signs: Vital Signs - 24 hr 09/07/23 21:57 09/08/23 06:00 09/08/23 07:51 Temperature 97.6 F 97.7 F Pulse Rate 68 73 Respiratory Rate 18 18 Blood Pressure 102/61 129/63 Pulse Oximetry 97 97 Oxygen Delivery Room Air 09/08/23 14:00 Temperature 97.7 F Pulse Rate 62 Respiratory Rate 16 Blood Pressure 102/58 L Pulse Oximetry 99 Oxygen Delivery Intake/Output Intake/Output: Intake & Output 09/05/23 09/06/23 09/07/23 09/08/23 23:59 23:59 23:59 23:59 Intake Total 1150 2390 Output Total 2 Balance 1148 2390 Meds/Results Medications: Active Medications Generic Name Dose Route Start Last Admin Trade Name Freq PRN Reason Stop Dose Admin Acetaminophen 650 mg 09/07/23 15:38 09/08/23 10:14 Acetaminophen 325 Mg Tablet PO 650 mg Q4H PRN Administration Mild Pain (1-3) or Fever Hydrocodone Bitart/Acetaminophen 1 tab 09/07/23 15:38 09/07/23 22:15 Hydrocodone/Acetaminophen (*Crx) 5-325 Mg Tablet PO 1 tab Q4H PRN Administration Moderate Pain (4-6) Al Hydrox/Mg Hydrox/Simethicone 30 ml 09/07/23 15:38 Mag Hydrox/Al Hydrox/Simeth 30 Ml Udc PO QID PRN Dyspepsia Alprazolam 0.25 mg 09/08/23 00:39 Alprazolam (*Cr
[2023-09-08] MEDS: MELATONIN 5 MG TABLET 10 MG PO (20:44)
[2023-09-08] MEDS: methylPREDNISolone SOD SUCC 40 MG VIAL IV PUSH (20:44)
[2023-09-08 21:14] LABS: Glucose Point of Care 166 mg/dl (65-105)
[2023-09-08 21:17] VITALS: BP 105/75; PULSE 55; RESP 16; TEMP 36.1; O2SAT 99
[2023-09-09] MEDS: PIPERACILLN/TAZ 3.375GM/NS50ML 3.375 GM/50 ML BAG IVPB ×4 (00:59→17:03)
[2023-09-09 05:34] VITALS: BP 108/68; PULSE 63; RESP 16; TEMP 36.6; O2SAT 97
[2023-09-09 06:44] LABS: Basophils Absolute Auto 0.1 K/mm3 (0.0-0.1); Basophils Percent Auto 0.4 % (0.2-1.2); Eosinophils Percent Auto 0.1 % (0-4.4); Hematocrit 38.1 % (42.0-52.0); Hemoglobin 12.1 g/dL (14.0-18.0); Immature Granulocyte Absolute 0.13 K/mm3 (0.00-0.031); Immature Granulocyte Percent A 1.2 % (0-0.5); Lymphocytes Percent Auto 9.9 % (18.3-44.2); Mean Corpuscular HGB Conc 31.8 g/dl (32-36); Mean Corpuscular Hemoglobin 29.1 pg (26-34); Mean Corpuscular Volume 91.6 fl (80-100); Monocytes Absolute Auto 0.5 K/mm3 (0.1-0.6); Monocytes Percent Auto 4.5 % (2.6-8.5); Neutrophils Absolute Auto 9.3 K/mm3 (1.3-6.7); Neutrophils Percent Auto 83.9 % (45.5-73.1); Platelet Count Result 301 k/mm3 (150-375); Red Blood Count 4.16 M/mm3 (4.6-6.20); Red Cell Distribution Width 12.1 % (11.5-14.5); White Blood Count 11.1 K/mm3 (4.5-10.0)
[2023-09-09 06:59] LABS: Alanine Aminotransferase 15 U/L (6-50); Albumin Level 4.2 g/dL (3.5-5.1); Alkaline Phosphatase 48 U/L (38-126); Anion Gap 10 mmol/L (4-12); Aspartate Amino Transferase 17 U/L (17-59); Bilirubin,Total 0.4 mg/dL (0.2-1.3); Blood Urea Nitrogen 11 mg/dL (9-20); Calcium 9.6 mg/dL (8.4-10.2); Carbon Dioxide 22 mmol/L (22-30); Chloride 102 mmol/L (98-107); Estimated CRCL calculation 125 ml/min; Estimated Glomerular Filt Rate > 60; Glucose 215 mg/dL (65-110); Magnesium 2.1 mg/dL (1.6-2.3); Potassium 4.4 mmol/L (3.4-5.0); Sodium 134 mmol/L (137-145)
[2023-09-09 07:25] LABS: Procalcitonin 0.1 ng/mL
[2023-09-09 07:43] LABS: Hepatitis B Surface Antigen Negative (Negative)
[2023-09-09 07:52] VITALS: O2SAT 98
[2023-09-09 07:57] LABS: Hepatitis B Surface Anti Res Negative
[2023-09-09 08:00] LABS: Glucose Point of Care 200 mg/dl (65-105)
[2023-09-09] MEDS: PANTOPRAZOLE SODIUM IV 40 MG VIAL IV PUSH (08:10)
[2023-09-09] MEDS: NICOTINE (*PBKC) 14 MG PATCH 1 PATCH TRANSDERM (08:11)
[2023-09-09] MEDS: FENOFIBRATE 160 MG TABLET PO (08:11)
[2023-09-09 11:33] LABS: Glucose Point of Care 178 mg/dl (65-105)
--- NOTE | 2023-09-09 11:49 | PC.NURSE ---
Patient states concerns with discharge that include whether he will receive a prescription for the discussed medication Humira and if while in the hospital, if w could insert a device to monitor glucose level.
--- NOTE | 2023-09-09 13:34 | PM.PNGS ---
Progress Note: A&P Assessment and Plan (1) Abnormal finding on CT scan: Code(s): R93.89 - Abnormal findings on diagnostic imaging of other specified body structures Status: Acute Assessment and Plan: Exam not consistent with appendicitis. Clinically improving with current treatment. Continue antibiotics. Okay to discharge on oral antibiotics from a surgical standpoint. GI planning colonoscopy in 3-4 weeks, appendix can be evaluated endoscopically at that time, will have patient f/u with Dr. Mckenzie after colonoscopy. (2) Colitis: Code(s): K52.9 - Noninfective gastroenteritis and colitis, unspecified Status: Acute Assessment and Plan: Continue antibiotics, started on rectal mesalamine, GI following and planning to start Humira (3) Pancreatitis: Code(s): K85.90 - Acute pancreatitis without necrosis or infection, unspecified Status: Acute Assessment and Plan: Clinically improved. Continue medical management. Tolerating low-fat diet. Plan I have discussed the patient's case and plan of care with Dr. Mckenzie. Subjective Subjective Date/Time Seen: 09/09/23 13:34 Patient reports: no new complaints, feels better, flatus, diarrhea (Chronic) and afebrile Interval history: Patient reports feeling much better today. Denies having any abdominal pain this morning. He is tolerating a solid diet today. Exam Const: General: comfortable and no acute distress GI: Inspection: non-distended GI Palp: Yes Soft to palpation, No Tenderness to palpation present (GI), No Guarding due to palpation present (GI) and No Rebound tenderness present Auscultation: normal bowel sounds Objective Data Vital Signs Vital Signs: Vital Signs - 24 hr 09/08/23 14:00 09/08/23 21:17 09/09/23 05:34 Temperature 97.7 F 97.0 F L 97.8 F Pulse Rate 62 55 L 63 Respiratory Rate 16 16 16 Blood Pressure 102/58 L 105/75 108/68 Pulse Oximetry 99 99 97 Oxygen Delivery 09/09/23 07:52 09/09/23 08:11 Temperature Pulse Rate Respiratory Rate Blood Pressure Pulse Oximetry 98 Oxygen Delivery Room Air Room Air Intake/Output Intake/Output: Intake & Output 09/06/23 09/07/23 09/08/23 09/09/23 23:59 23:59 23:59 23:59 Intake Total 1150 2920 590 Output Total 2 Balance 1148 2920 590 Meds/Results Medications: Active Medications Generic Name Dose Route Start Last Admin Trade Name Freq PRN Reason Stop Dose Admin Acetaminophen 650 mg 09/07/23 15:38 09/08/23 10:14 Acetaminophen 325 Mg Tablet PO 650 mg Q4H PRN Administration Mild Pain (1-3) or Fever Hydrocodone Bitart/Acetaminophen 1 tab 09/07/23 15:38 09/07/23 22:15 Hydrocodone/Acetaminophen (*Crx) 5-325 Mg Tablet PO 1 tab Q4H PRN Administration Moderate Pain (4-6) Al Hydrox/Mg Hydrox/Simethicone 30 ml 09/07/23 15:38 Mag Hydrox/Al Hydrox/Simeth 30 Ml Udc PO QID PRN Dyspepsia Alprazolam 0.25 mg 09/08/23 00:39 Alprazolam (*Crx) 0.25 Mg Tablet PO PRN PRN Anxiety Dextrose 12.5 gm 09/08/23 00:39 Dextrose 50% 25 Gm/50 Ml Syringe IV PUSH PRN PRN Hypoglycemia Protocol Fenofibrate 160 mg 09/08/23 09:00 09/09/23 08:11 Fenofibrate 160 Mg Tablet PO 160 mg DAILY GRETA Administration Glucagon 1 mg 09/08/23 00:39 Glucagon For Inj 1 Mg Vial IM PRN PRN Hypoglycemia Protocol Glucose 15 gm 09/08/23 00:39 Glucose Oral Gel 15 Gm Of Glucse In 37.5 Gm Tube PO PRN PRN Hypoglycemia Protocol Piperacillin/Tazobactam/Dextrose 3.375 gm in 50 mls @ 100 mls/hr 09/07/23 20:00 09/09/23 11:43 Zosyn 3.375 Gm/Ns 50 Ml IVPB Infused Q6HR GRETA Infusion Dextrose 1,000 mls @ 100 mls/hr 09/08/23 00:39 Dextrose 5% 1,000 Ml IVPB PRN PRN Hypoglycemia Protocol Insulin Aspart 2 - 5 units 09/08/23 08:00 09/09/23 11:35 Insulin Aspart (*Bkc) 100 Units/Ml SUB-Q Not Given TIDWM GRETA Prot
[2023-09-09 14:00] VITALS: BP 101/55; PULSE 62; RESP 18; TEMP 36.6; O2SAT 98
[2023-09-09 16:38] LABS: Glucose Point of Care 214 mg/dl (65-105)
[2023-09-09] MEDS: INSULIN ASPART (*BKC) 100 UNITS/ML SUB-Q (17:04)
--- NOTE | 2023-09-09 17:04 | WPDGIPROGNO ---
Progress Note: A&P Assessment and Plan (1) Proctitis: Code(s): K62.89 - Other specified diseases of anus and rectum Status: Inactive Assessment and Plan: treated with rowasa enema, also received one dose of iv steroids (prefer to avoid intermediate card tender steroids because h/o DM) he can go home with enema at bedtime, also will set up another colonoscopy in 3-4 weeks will submit order to his insurance to start humira as outpatient (he was reluctant in the past, did not respond to mesalamine previously)- TB and HBV status pending (2) Hematochezia: Code(s): K92.1 - Melena Status: Inactive (3) Abnormal finding on CT scan: Code(s): R93.89 - Abnormal findings on diagnostic imaging of other specified body structures Status: Acute Assessment and Plan: no signs of appendicitis, surgery on the case (4) Pancreatitis: Code(s): K85.90 - Acute pancreatitis without necrosis or infection, unspecified Status: Acute Assessment and Plan: clinically improved and tolerating diet no more alcohol (5) Family history of colon cancer: Code(s): Z80.0 - Family history of malignant neoplasm of digestive organs Status: Acute (6) Alcohol use: Code(s): Z78.9 - Other specified health status Status: Acute Assessment and Plan: he will quit Subjective Date/time seen: 09/09/23 17:04 Interval history: pain almost gone, tolerated diet, overall much better and feeling like going home Review of Systems Review of Systems: All systems reviewed & are unremarkable except as noted in HPI and below Exam Const: General: comfortable and no acute distress HENMT: Face/Nose/Sinus: Normal nares present Eyes: General: appearance normal, both eyes and all related structures Neck: Neck: supple Resp: Auscultation: clear to auscultation bilaterally Cardio: Rate: regular rate Rhythm: regular rhythm GI: Inspection: non-distended GI Palp: Yes Soft to palpation and No Tenderness to palpation present (GI) Auscultation: normal bowel sounds Skin: General skin exam: normal color Neuro: General: gait normal Speech: normal speech Motor exam (neuro): 5/5 motor strength present throughout Extrem: General: normal to inspection Psych: Mental Status: mental status grossly normal Objective Data Vital Signs Vital Signs: Vital Signs - 24 hr 09/08/23 21:17 09/09/23 05:34 09/09/23 07:52 Temperature 97.0 F L 97.8 F Pulse Rate 55 L 63 Respiratory Rate 16 16 Blood Pressure 105/75 108/68 Pulse Oximetry 99 97 98 Oxygen Delivery Room Air 09/09/23 08:11 09/09/23 14:00 Temperature 97.9 F Pulse Rate 62 Respiratory Rate 18 Blood Pressure 101/55 L Pulse Oximetry 98 Oxygen Delivery Room Air Intake/Output Intake/Output: Intake & Output 09/06/23 09/07/23 09/08/23 09/09/23 23:59 23:59 23:59 23:59 Intake Total 1150 2920 590 Output Total 2 Balance 1148 2920 590 Meds/Results Medications: Active Medications Generic Name Dose Route Start Last Admin Trade Name Freq PRN Reason Stop Dose Admin Acetaminophen 650 mg 09/07/23 15:38 09/08/23 10:14 Acetaminophen 325 Mg Tablet PO 650 mg Q4H PRN Administration Mild Pain (1-3) or Fever Hydrocodone Bitart/Acetaminophen 1 tab 09/07/23 15:38 09/07/23 22:15 Hydrocodone/Acetaminophen (*Crx) 5-325 Mg Tablet PO 1 tab Q4H PRN Administration Moderate Pain (4-6) Al Hydrox/Mg Hydrox/Simethicone 30 ml 09/07/23 15:38 Mag Hydrox/Al Hydrox/Simeth 30 Ml Udc PO QID PRN Dyspepsia Alprazolam 0.25 mg 09/08/23 00:39 Alprazolam (*Crx) 0.25 Mg Tablet PO PRN PRN Anxiety Dextrose 12.5 gm 09/08/23 00:39 Dextrose 50% 25 Gm/50 Ml Syringe IV PUSH PRN PRN Hypoglycemia Protocol Fenofibrate 160 mg 09/08/23 09:00 09/09/23 08:11 Fenofibrate 160 Mg Tablet PO 160 mg DAILY GRETA Administration Glucagon 1 mg 09/08/23 00:39 Glucago
--- NOTE | 2023-09-09 18:20 | PM.DS ---
DS: Admitting Diagnosis Discharge Date September 09, 2023 Admitting Diagnosis Abdominal pain DS: Discharge Diagnosis Discharge Diagnosis (1) Alcohol use: Code(s): Z78.9 - Other specified health status Status: Acute (2) Family history of colon cancer: Code(s): Z80.0 - Family history of malignant neoplasm of digestive organs Status: Acute (3) Abdominal pain: Code(s): R10.9 - Unspecified abdominal pain Status: Acute (4) Diabetes: Code(s): E11.9 - Type 2 diabetes mellitus without complications Status: Acute (5) Abnormal finding on CT scan: Code(s): R93.89 - Abnormal findings on diagnostic imaging of other specified body structures Status: Acute (6) Colitis: Code(s): K52.9 - Noninfective gastroenteritis and colitis, unspecified Status: Acute (7) Pancreatitis: Code(s): K85.90 - Acute pancreatitis without necrosis or infection, unspecified Status: Acute DS: Summary Hospital Course Hospital Course: 48-year-old male with past medical history diverticulosis, GERD, hyperlipidemia, [id number] diabetes mellitus, asthma, depression, bipolar disorder ulcerative proctitis. Been following up with Dr. Montes for a few years and had been suggested to start on Humira the patient was lost to follow-up as he wanted to treat his inflammation with diet. He has always had urgency diarrhea rectal bleeding for many years but lately this became more severe. This is why he presented. On admission CT abdomen pelvis with contrast demonstrated acute interstitial pancreatitis with distal colitis and findings suspicious for acute appendicitis and reactive lymph nodes. General surgery was consulted and there was no impression for appendicitis that at least needed surgical intervention. Dr. Montes' team was consulted and mesalamine enema along with Solu-Medrol push 40 mg time 1 was ordered. The patient's refuse mesalamine enema as he knows this did not work for him. He did receive Solu-Medrol. As well he received Zosyn. With these treatments the patient's abdominal pain resolved and he reported the least amount of diarrhea he has had in years. He is stable for discharge to home on 09/08. He will have follow-up management with GI as well as a follow-up colonoscopy. The patient will follow-up with his PCP on the use of metformin. As well, he will stop Mounjaro. He will see a dietitian to continue improving his sugars and inflammation through good diet control. His HB A1c on this admission was 6.0%. The patient does drink alcohol frequently however has cut down recently. Advised on multiple occasions to cut alcohol out of his life completely and he agrees to this. He also now agrees to marrow and that has been set up with the GI team pending TB in HPV status. The patient was full code during his admission. Time Spent with Patient Time attestation: Total time spent providing and/or coordinating discharge services: Exam Const: General: cooperative and no acute distress Resp: Effort & Inspection: normal respiratory effort Auscultation: clear to auscultation bilaterally Cardio: Rate: regular rate Rhythm: regular rhythm Heart sounds: S1 normal heart sound present and S2 normal heart sound present GI: GI Palp: No abdominal tenderness Auscultation: normal bowel sounds DS: Data Data Completed and Pending Labs on day of discharge: Labs from last 24 hours 09/09/23 09/09/23 09/09/23 16:32 11:28 07:51 WBC RBC Hgb Hct MCV MCH MCHC RDW Plt Count MPV Immature Gran % (Auto) Neut % (Auto) Lymph % (Auto) [place] % (Auto) Eos % (Auto) Baso % (Auto) Lymph # (Auto) [place] # (Auto) Eos # (Auto) Baso # (Auto) Abs Immat Gran (auto) Absolute Neuts (auto) Absolute Nucleated RBC Nucleated RBC % Sodium Potassium Chloride Carbon Dioxide Anion Gap BUN Creatini
[2023-09-10 07:13] LABS: Hepatitis B Core Ab Total NON-REACTIVE (NON-REACTIVE)
[2023-09-10 12:03] LABS: NIL 0.04 IU/mL; Quantiferon TB Plus, 1T NEGATIVE (NEGATIVE); TB1-NIL 0.01 IU/mL; TB2-NIL 0.01 IU/mL
[2023-09-16 16:05] LABS: Calprotectin, Stool 2260 mcg/g; H pylori Ag Stool NOT DETECTED (NOT DETECTED); Pancreatic Elastase, Stool <15 mcg/g
== END 2023-09-09 16:36 | disposition home or self-care (01) | DRG 440 ==
LOC: ANHED 15:31 → ANH3MEDSUR 15:51
PROVIDERS: Internal Medicine Gastroenterology; Nurse Practitioner Family; Student in an Organized Health Care Education/Training Program; Admitting Provider Internal Medicine; Emergency Provider Student in an Organized Health Care Education/Training Program; Visit Provider General Practice
DX: K85.80 Other acute pancreatitis without necrosis or infection (principal); K52.9 Noninfective gastroenteritis and colitis, unspecified; E11.9 Type 2 diabetes mellitus without complications; K21.9 Gastro-esophageal reflux disease without esophagitis; E78.5 Hyperlipidemia, unspecified; F31.9 Bipolar disorder, unspecified; K57.90 Diverticulosis of intestine, part unspecified, without perforation or abscess without bleeding; Z87.891 Personal history of nicotine dependence; Z80.0 Family history of malignant neoplasm of digestive organs
CPT/HCPCS: 36415; 74177; 76705; 80053; 80061; 81003; 82653; 82948; 83036; 83605; 83690; 83735; 83993; 84145; 85025; 85652; 86140; 86480; 86704; 86706; 87040; 87045; 87338; 87340; 87427; 87449; 96361; 96374; 96375; 99285; A9270; C9113; J1815; J2270; J2405; J2543; J2919; J7120; Q9967

== ENCOUNTER 2023-09-14 14:42 | Inpatient (IN) | payer OTHER, SELFPAY ==
--- NOTE | ~2023-09-14 | CT_ITS ---
EXAMINATION: CT abdomen pelvis w con DATE: 09/14/2023 18:48 INDICATION: Generalized abdominal tenderness. TECHNIQUE: Computed tomography (CT) of the abdomen and pelvis was performed with 100 mL Omnipaque 350 intravenous contrast. Automated exposure control and iterative reconstruction technique were employe d. The dose-length product was 541.75 mGy-cm. COMPARISON: CT abdomen and pelvis 09/07/23 FINDINGS: The visualized portions of the lung bases demonstrate mild atelectasis. No pleural effusion . The heart size is normal. No pericardial effusion. The liver, spleen, gallbladder, pancreas, adrena l glands, and kidneys are normal. There is diffuse wall thickening of the colon, consistent with coli tis. There is fat stranding around the ascending colon. The appendix is normal in size. There is mild mesenteric lymphadenopathy. There is no free intraperitoneal fluid. There is mild thoracolumbar spon dylosis. IMPRESSION: 1. Pancolitis. 2. Mild mesenteric lymphadenopathy, likely reactive. Reviewed, dictated and finalized at location E.
[2023-09-14 15:03] LABS: Basophils Absolute Auto 0.1 K/mm3 (0.0-0.1); Basophils Percent Auto 0.3 % (0.2-1.2); Eosinophils Absolute Auto 0.4 K/mm3 (0-0.3); Eosinophils Percent Auto 2.8 % (0-4.4); Hematocrit 41.4 % (42.0-52.0); Hemoglobin 13.7 g/dL (14.0-18.0); Immature Granulocyte Percent A 1.4 % (0-0.5); Lymphocytes Percent Auto 14.3 % (18.3-44.2); Mean Corpuscular HGB Conc 33.1 g/dl (32-36); Mean Corpuscular Volume 87.5 fl (80-100); Mean Platelet Volume 10.4 fl (7.4-10.4); Monocytes Absolute Auto 1.2 K/mm3 (0.1-0.6); Monocytes Percent Auto 8.4 % (2.6-8.5); Neutrophils Absolute Auto 10.7 K/mm3 (1.3-6.7); Neutrophils Percent Auto 72.8 % (45.5-73.1); Platelet Count Result 423 k/mm3 (150-375); Red Blood Count 4.73 M/mm3 (4.6-6.20); Red Cell Distribution Width 12.7 % (11.5-14.5); White Blood Count 14.6 K/mm3 (4.5-10.0)
[2023-09-14 15:19] LABS: Appearance Urine Clear (Clear); Bacteria Urine None Seen /hpf; Bilirubin Urine Negative (Negative); Blood Urine Negative (Negative); Color Urine Dark Yellow (Yellow); Glucose Urine UA Negative (Negative); Ketones Urine 1+ mg/dL (Negative); Leukocyte Esterase Ur 1+ LEU/UL (Negative); Need Manual Microscopic Reviewed; Nitrate Urine Negative (Negative); Non Pathogenic Casts 0-2; Protein Urine Negative (Negative); RBC Urine 0-2 /hpf (0-2); Specific Grav Ur 1.024 (1.001-1.035); Squamous Epithelial Cell Urine None Seen /hpf (Few); WBC Urine 0-5 /hpf (0-3); pH Urine 5.5 (5.0-9.0)
[2023-09-14 15:20] LABS: Add Urine Microscopic? YES
[2023-09-14 15:27] LABS: Alanine Aminotransferase 12 U/L (6-50); Albumin Level 4.7 g/dL (3.5-5.1); Alkaline Phosphatase 46 U/L (38-126); Anion Gap 10 mmol/L (4-12); Aspartate Amino Transferase 20 U/L (17-59); Bilirubin,Total 0.6 mg/dL (0.2-1.3); Blood Urea Nitrogen 16 mg/dL (9-20); Carbon Dioxide 26 mmol/L (22-30); Chloride 100 mmol/L (98-107); Estimated CRCL calculation 95 ml/min; Estimated Glomerular Filt Rate > 60; Glucose 188 mg/dL (65-110); Lipase 489 U/L (23-300); Potassium 4.6 mmol/L (3.4-5.0); Sodium 136 mmol/L (137-145)
--- NOTE | 2023-09-14 17:29 | ED.ABDPAIN ---
HPI - Abdominal Pain General Chief Complaint: Abdominal Pain <THADDEUS Hughes Last Filed: 09/15/23 01:45> Stated Complaint: abd pain <THADDEUS Hughes Last Filed: 09/15/23 01:45> Time Seen by Provider: 09/14/23 17:00 <THADDEUS Hughes Last Filed: 09/15/23 01:45> Source: patient <THADDEUS Hughes Last Filed: 09/15/23 01:45> Mode of arrival: ambulatory <THADDEUS Hughes Last Filed: 09/15/23 01:45> Limitations: no limitations <THADDEUS Hughes Last Filed: 09/15/23 01:45> History of Present Illness HPI narrative: This is a 48-year-old male with PMH of IBD, T2 dm, pancreatitis who presents to the ED with chief complaint of abdominal pain x4 days. Reports he was discharged from this hospital 5 days ago and had a pain-free day on discharge but since then has had increasing abdominal pain. Reports diffuse intermittent pain and describes sudden sharp spasm like pains that come on as well. Reports nausea but no vomiting. He has history of IBD and has had chronic colitis symptoms including rectal bleeding ongoing as well. He has not been able to get Humira that was prescribed by GI for this yet. Denies any no onset of fevers or chills. Denies chest pain, shortness of breath, urinary symptoms, back pain. Reports he had repeat labs with PCP on . He has the results on his phone which shows lipase of 132, three days ago. Denies any alcohol use. He has been taken off 1 0 and metformin by PCP and is set to start Jardiance soon. <THADDEUS Hughes Last Filed: 09/15/23 01:45> Related Data Home Medications: Home Medications Medication Instructions Recorded Confirmed divalproex 500 mg tablet,extended 1,500 mg PO HS 01/18/21 09/25/23 release 24 hr (Depakote ER) omeprazole 20 mg capsule,delayed 20 mg PO Q12H 02/09/21 09/25/23 release alprazolam 0.25 mg tablet (Xanax) 0.25 mg PO PRN PRN Anxiety 11/22/21 09/25/23 fenofibrate 160 mg tablet 160 mg PO HS 11/22/21 09/25/23 magnesium 200 mg tablet 200 mg PO DAILY 09/14/23 09/25/23 potassium chloride 20 mEq 20 meq PO DAILY 09/14/23 09/25/23 tablet,extended release Adult Probiotic 1 tab-cap PO DIRECTED 09/25/23 09/25/23 L-Methylfolate 1 tab-cap PO DIRECTED 09/25/23 09/25/23 Nicotinamide 1 tab-cap PO DIRECTED 09/25/23 09/25/23 berberine chloride 1 tab-cap PO DIRECTED 09/25/23 09/25/23 multivitamin 1 tablet PO DAILY 09/25/23 09/25/23 simethicone 1 tab-cap PO DIRECTED 09/25/23 09/25/23 <Kameron Grullon PA-C - Last Filed: 09/15/23 01:45> Allergies/Adverse Reactions: Allergies Allergy/AdvReac Type Severity Reaction Status Date / Time No Known Allergies Allergy Verified 09/25/23 14:33 <THADDEUS Hughes Last Filed: 09/15/23 01:45> Review of Systems Review of Systems: All systems as dictated in HPI <Kameron Grullon PA-C - Last Filed: 09/15/23 01:45> PENDING SALE TO [facility] Past Medical History Medical History: Medical History (Updated 09/19/23 @ 08:36 by Brigette Sanders APRN) Alcohol use Asthma Bipolar disorder Depression Diabetes Diarrhea Familial hypertriglyceridemia Family history of colon cancer in father GERD (gastroesophageal reflux disease) Hematochezia Iron deficiency anemia Proctitis <Kameron Grullon PA-C - Last Filed: 09/15/23 01:45> Surgical History Surgical History: Surgical History (Updated 09/16/23 @ 12:40 by Emigdio Garcia MD) H/O excision of mass 02/19/21 Excision 2 cm scalp cyst, Excision 1 cm scalp cyst x4 H/O shoulder surgery History of umbilical hernia repair 25 years ago with mesh <Kameron Grullon PA-C - Last Filed: 09/15/23 01:45> Family History Family History: Family History Other Cancer Cerebrovascular accident Diabetes mellitus Hypertension <Kameron Grullon PA-C - Last Filed: 09/15/23 01:45> Social History Social History: Social History (Reviewed
[2023-09-14] MEDS: ONDANSETRON INJ 4 MG/2 ML VIAL IV PUSH (17:54)
[2023-09-14] MEDS: HYDROmorphone HCL INJ (*CRX) 1 MG/ML SYR 0.5 MG IV PUSH (17:54)
[2023-09-14] MEDS: SODIUM CHLORIDE 0.9% IV 1,000 ML 999 ML IV CONT ×2 (17:55→19:26)
[2023-09-14 18:17] VITALS: BP 108/80; PULSE 85; RESP 17; O2SAT 99
--- NOTE | 2023-09-14 19:19 | PC.NURSE ---
this rn assumed care of patient. this rn took patient report from YOVANI Holguin.
[2023-09-14] MEDS: methylPREDNISolone SOD SUCC 40 MG VIAL IV PUSH (19:26)
[2023-09-14 19:27] VITALS: BP 102/79; PULSE 76; RESP 18; O2SAT 100
[2023-09-14] MEDS: metroNIDAZOLE 500 MG/ISO 100ML 500 MG/100 ML BAG 100 MG IVPB (20:10)
--- NOTE | 2023-09-14 20:46 | PM.IMHP ---
H&P: HPI History of Present Illness Date/Time: 09/14/23 20:46 Chief Complaint: ABDOMINAL PAIN Narrative: THIS IS A 48-YEAR-OLD MALE WITH PAST MEDICAL HISTORY HISTORY SIGNIFICANT FOR ULCERATIVE COLITIS PATIENT PRESENTS TO THE EMERGENCY ROOM WITH 1 WEEK OF DIARRHEA, ABDOMINAL PAIN, GENERALIZED MALAISE, CHILLS, POOR PER ORALLY INTAKE, NAUSEA. PRELIMINARY WORKUP WAS SIGNIFICANT FOR CT OF ABDOMEN AND PELVIS WITH PANCOLITIS. PATIENT HAS BEEN ADMITTED FOR FURTHER EVALUATION MANAGEMENT AND TREATMENT. EXAMINATION: CT abdomen pelvis w con DATE: 09/14/2023 18:48 INDICATION: Generalized abdominal tenderness. TECHNIQUE: Computed tomography (CT) of the abdomen and pelvis was performed with 100 mL Omnipaque 350 intravenous contrast. Automated exposure control and iterative reconstruction technique were employed. The dose-length product was 541.75 mGy-cm. COMPARISON: CT abdomen and pelvis 09/07/23 FINDINGS: The visualized portions of the lung bases demonstrate mild atelectasis. No pleural effusion. The heart size is normal. No pericardial effusion. The liver, spleen, gallbladder, pancreas, adrenal glands, and kidneys are normal. There is diffuse wall thickening of the colon, consistent with colitis. There is fat stranding around the ascending colon. The appendix is normal in size. There is mild mesenteric lymphadenopathy. There is no free intraperitoneal fluid. There is mild thoracolumbar spondylosis. IMPRESSION: 1. Pancolitis. 2. Mild mesenteric lymphadenopathy, likely reactive. Review of Systems Review of Systems: DIARRHEA, NAUSEA, ABDOMINAL PAIN Constitutional: Constitutional: Reports chills, Reports malaise, Reports poor appetite and Reports weakness Eyes: Eyes: Denies change in vision ENT: Denies dysphagia and Denies odynophagia Cardiovascular: Cardiovascular: Denies chest pain, Denies radiating jaw, neck or arm pain and Denies palpitations Respiratory: Respiratory: Denies cough, Denies excessive phlegm production and Denies dyspnea Gastrointestinal: Gastrointestinal: Reports abdominal pain, Reports diarrhea and Reports nausea Genitourinary: Genitourinary: Denies dysuria Musculoskeletal: Musculoskeletal: Denies arthralgias Integumentary/Breasts: Skin/Breast: Denies rash Neurologic: Denies focal weakness and Denies Sensory deficit (Neuro) Psychiatric: Psychiatric: Reports no additional psychiatric complaints and Reports as per HPI Endocrine: Endocrine: Denies cold intolerance, Denies fatigue, Denies flushing, Denies heat intolerance, Denies polyphagia, Denies polydipsia, Denies polyuria and Denies palpitations Hematologic/Lymphatic: Hematologic/Lymphatic: Reports no additional hematologic/lymphatic complaints and Reports as per HPI Allergic/Immunologic: Allergic/Immunologic: Reports no additional allergic/immunologic complaints and Reports as per HPI [facility] Past Medical History Medical History (Updated 09/14/23 @ 20:48 by Xiomy Sanchez MD) Alcohol use Asthma Bipolar disorder Depression Diabetes Familial hypertriglyceridemia Family history of colon cancer in father GERD (gastroesophageal reflux disease) Hematochezia Proctitis Surgical History Surgical History H/O excision of mass 02/19/21 Excision 2 cm scalp cyst, Excision 1 cm scalp cyst x4 H/O shoulder surgery History of umbilical hernia repair 25 years ago with mesh Family History Family History Other Cancer Cerebrovascular accident Diabetes mellitus Hypertension Social History Social History Smoking packs per day: 0.5 Smoking cigarettes per day: 10.0 Years smoked: 12 Smoking pack-years: 6.00 Smoking status: Current every day smoker Tobacco type: e-cigarettes/vaping Smokeless tobacco user: chewing tobacco Alcohol intake: current Drinks per week
[2023-09-14 20:54] LABS: Glucose Point of Care 113 mg/dl (65-105)
[2023-09-14] MEDS: PIPERACILLN/TAZ 3.375GM/NS50ML 3.375 GM/50 ML BAG IVPB ×2 (20:55→22:14)
[2023-09-14 20:56] VITALS: BP 104/67; PULSE 77; RESP 16; TEMP 36.6; O2SAT 98; BMI 23.6
[2023-09-14 21:03] VITALS: BP 104/67; PULSE 77; RESP 16; TEMP 36.6; O2SAT 98; BMI 23.6
[2023-09-14] MEDS: DEXTROSE 5%/0.45% SOD CHL 1,000 ML 100 ML IV CONT (21:04)
[2023-09-14] MEDS: FENOFIBRATE 160 MG TABLET PO (22:13)
[2023-09-14] MEDS: DIVALPROEX SODIUM ER 500 MG TAB.24H 1500 MG PO (22:14)
[2023-09-14] MEDS: HYDROmorphone HCL INJ (*CRX) 1 MG/ML SYR IV PUSH (22:14)
[2023-09-15] MEDS: traZODone HCL 50 MG TABLET PO ×2 (00:55→20:27)
[2023-09-15] MEDS: HYDROmorphone HCL INJ (*CRX) 1 MG/ML SYR IV PUSH ×4 (03:01→14:57)
[2023-09-15 05:05] VITALS: BP 93/66; PULSE 76; RESP 16; TEMP 36.4; O2SAT 99
[2023-09-15 07:31] LABS: Glucose Point of Care 253 mg/dl (65-105)
[2023-09-15] MEDS: DEXTROSE 5%/0.45% SOD CHL 1,000 ML 100 ML IV CONT (08:08)
[2023-09-15] MEDS: PIPERACILLN/TAZ 3.375GM/NS50ML 3.375 GM/50 ML BAG IVPB ×4 (08:12→22:33)
[2023-09-15] MEDS: methylPREDNISolone SOD SUCC 40 MG VIAL IV PUSH (08:14)
[2023-09-15] MEDS: MAGNESIUM OXIDE 200 MG TABLET PO (08:15)
[2023-09-15] MEDS: PANTOPRAZOLE 40 MG TABLET PO ×2 (08:15→18:24)
--- NOTE | 2023-09-15 08:40 | PM.IMPN ---
Progress Note: A&P Assessment and Plan (1) Pancolitis: Code(s): K51.00 - Ulcerative (chronic) pancolitis without complications Status: Acute Assessment and Plan: Last colonoscopy 12/07/2021 showed diverticulosis, ulcerative proctitis and internal hemorrhoids. Family Hx of colon cancer ( father dx in his 50's) and gastric cancer ( paternal grandfather). Previously on mesalamine with no response. Patient last seen by GI 09/08 for ulcerative proctitis and discharged with rowasa enemas at bedtime, with plan to obtain colonoscopy in 3-4 weeks and start humira as outpatient. Patient has not received humira from [facility]. - CT abd/pelvis 09/13: Pancolitis.Mild mesenteric lymphadenopathy, likely reactive. - GI recommends: Continue antibiotics Continue steroids while inpatient Mesalamine enemas while inpatient Office will check on the status of his Humira. - IV fluids - Methylprednisolone 40 mg IV daily - started on Zosyn on 09/13 - negative for TB and Hep B in 08/2023 (2) Diabetes: Code(s): E11.9 - Type 2 diabetes mellitus without complications Status: Acute Assessment and Plan: - hypoglycemia protocol - POC blood glucose ACHS - home medication - Plan on starting Jardiance. Waiting on arrival from [facility]. Managed by PCP. - correct regimen ordered - low dose TIDWM and HS - A1C 09/08/23: 6.0 (3) Bipolar disorder: Code(s): F31.9 - Bipolar disorder, unspecified Status: Acute Assessment and Plan: Continue Depakote 500 mg TID. (4) Pancreatitis: Qualifiers: Acute pancreatitis complication: unspecified Chronicity: acute Pancreatitis type: idiopathic Qualified Code(s): K85.00 - Idiopathic acute pancreatitis without necrosis or infection Code(s): K85.90 - Acute pancreatitis without necrosis or infection, unspecified Status: Acute Assessment and Plan: CT last admission showed acute interstitial pancreatitis. Lipase still elevated but trending down 707-->550-->489. Patient admits to bilateral upper abdominal pain that recently seemed to get worse after eating fatty foods. LFT's normal. Pain has improved but not resolved since admission. Patient admits to social alcohol use more on the weekends but has been decreasing alcohol use recently.? - Continue supportive care (5) GERD (gastroesophageal reflux disease): Qualifiers: Esophagitis presence: esophagitis presence not specified Qualified Code(s): K21.9 - Gastro-esophageal reflux disease without esophagitis Code(s): K21.9 - Gastro-esophageal reflux disease without esophagitis Status: Acute Assessment and Plan: Patient admits to reflux that has been well controlled with omeprazole 20 mg BID. Patient has never had an EGD. - Continue PPI - outpatient EGD which we can further discuss during outpatient visit Time Spent With Patient Time with patient: 25 - 35 minutes Subjective Date/time seen: 09/15/23 08:40 Interval history: 48 y/o M presents here with abdominal pain with PMH of IBD, diverticulosis, GERD, HLD, DM2, asthma, depression, and bipolar disorder. Patient is pleasant lying in bed. He was recently admitted for colitis and pancreatitis on 09/06- and discharged on humira. Per patient he has not received the humira from [facility]. He had one day symptom free after discharge on 09/08 before symptoms returned. He was previously having 5-10 episodes of diarrhea per day with the passing of hematochezia with clots and unable to tolerate diet. He denies any diarrhea episodes today. He states that his pain is well controlled on the current pain regimen. Tolerating clear liquid diet well. Due to the hospital not having inpatient humira, patient will receive mesalamine enema today. He remains on antibiotics and steroids. He denies chest pain, shortness of breath, nausea/vomiting, and changes in bladder. Review of Systems Review of Systems: All systems reviewed
--- NOTE | 2023-09-15 09:06 | P.CONGI_ITS ---
I, Dewey Alexis MD, have provided a substantive portion of the care of this patient and discussed the patient with my Nurse Practitioner. I have reviewed any new relevant radiographic and laboratory results including medications. I agree with her documentation as noted below.?I personally performed the medical decision making and much of the history and exam for this encounter. briefly, he was diagnosed with ulcerative proctitis 2021, used mesalamine briefly without improvement. Then I suggested to use biologic such as humira but he was reluctant about it and never came back.?Had recent hospitalization with uc flare and pancreatitis, he was treated and pain gone but only for 1 day, now he is back with similar problem. We sent prescription to specialty pharmacy to [facility] and waiting on final approval but in the meantime he came back with more abdominal pain and diarrhea. Continue treatment with steroids, mesalamine. Get stool samples. Hoping that he can get humira demetrio (unfortunately hospital does not carry humira as medication therefore can not start while he is inpatient). Assessment and Plan Assessment and plan (1) Pancolitis: Code(s): K51.00 - Ulcerative (chronic) pancolitis without complications Status: Acute (2) Family history of colon cancer: Code(s): Z80.0 - Family history of malignant neoplasm of digestive organs Status: Acute (3) Abdominal pain: Qualifiers: Abdominal location: generalized Qualified Code(s): R10.84 - Generalized abdominal pain Code(s): R10.9 - Unspecified abdominal pain Status: Acute (4) Pancreatitis: Qualifiers: Chronicity: acute Pancreatitis type: idiopathic Acute pancreatitis complication: unspecified Qualified Code(s): K85.00 - Idiopathic acute pancreatitis without necrosis or infection Code(s): K85.90 - Acute pancreatitis without necrosis or infection, unspecified Status: Acute (5) GERD (gastroesophageal reflux disease): Qualifiers: Esophagitis presence: esophagitis presence not specified Qualified Code(s): K21.9 - Gastro-esophageal reflux disease without esophagitis Code(s): K21.9 - Gastro-esophageal reflux disease without esophagitis Status: Acute (6) Elevated lipase: Code(s): R74.8 - Abnormal levels of other serum enzymes Status: Acute (7) Ulcerative colitis: Qualifiers: Ulcerative colitis location: ulcerative pancolitis Digestive disease complication type: without complication Qualified Code(s): K51.00 - Ulcerative (chronic) pancolitis without complications Code(s): K51.90 - Ulcerative colitis, unspecified, without complications Status: Acute Plan 1) Abdominal pain/ abnormal imaging digestive / ulcerative proctitis/ diarrhea / hematochezia/ family Hx of colon cancer:?Last colonoscopy 12/07/2021 showed diverticulosis, ulcerative proctitis and internal hemorrhoids. Family Hx of colon cancer ( father dx in his 50's) and gastric cancer ( paternal grandfather). Patient took oral mesalamine for 2 months before self discontinuing due to lack of symptom improvement and was trying to manage symptoms with diet and probiotics. He has been having increasing episodic abdominal pain over the past month. Recently hospitalized September 06- and he states that he only had 1 good day since his discharge before symptoms return. He presented back to the emergency room yesterday morning for abdominal pain. Abdominal pain has been BUQ and radiating to his lower abdomen. He is having 5- 10 liquid BM's daily with urgency and occasional fecal incontinence and nocturnal diarrhea. He is having painless brigh
--- NOTE | 2023-09-15 09:06 | WPDGICN ---
Assessment and Plan Assessment and plan (1) Pancolitis: Code(s): K51.00 - Ulcerative (chronic) pancolitis without complications Status: Acute (2) Family history of colon cancer: Code(s): Z80.0 - Family history of malignant neoplasm of digestive organs Status: Acute (3) Abdominal pain: Qualifiers: Abdominal location: generalized Qualified Code(s): R10.84 - Generalized abdominal pain Code(s): R10.9 - Unspecified abdominal pain Status: Acute (4) Pancreatitis: Qualifiers: Chronicity: acute Pancreatitis type: idiopathic Acute pancreatitis complication: unspecified Qualified Code(s): K85.00 - Idiopathic acute pancreatitis without necrosis or infection Code(s): K85.90 - Acute pancreatitis without necrosis or infection, unspecified Status: Acute (5) GERD (gastroesophageal reflux disease): Qualifiers: Esophagitis presence: esophagitis presence not specified Qualified Code(s): K21.9 - Gastro-esophageal reflux disease without esophagitis Code(s): K21.9 - Gastro-esophageal reflux disease without esophagitis Status: Acute (6) Elevated lipase: Code(s): R74.8 - Abnormal levels of other serum enzymes Status: Acute (7) Ulcerative colitis: Qualifiers: Ulcerative colitis location: ulcerative pancolitis Digestive disease complication type: without complication Qualified Code(s): K51.00 - Ulcerative (chronic) pancolitis without complications Code(s): K51.90 - Ulcerative colitis, unspecified, without complications Status: Acute Plan 1) Abdominal pain/ abnormal imaging digestive / ulcerative proctitis/ diarrhea / hematochezia/ family Hx of colon cancer:?Last colonoscopy 12/07/2021 showed diverticulosis, ulcerative proctitis and internal hemorrhoids. Family Hx of colon cancer ( father dx in his 50's) and gastric cancer ( paternal grandfather). Patient took oral mesalamine for 2 months before self discontinuing due to lack of symptom improvement and was trying to manage symptoms with diet and probiotics. He has been having increasing episodic abdominal pain over the past month. Recently hospitalized September 06- and he states that he only had 1 good day since his discharge before symptoms return. He presented back to the emergency room yesterday morning for abdominal pain. Abdominal pain has been BUQ and radiating to his lower abdomen. He is having 5-10 liquid BM's daily with urgency and occasional fecal incontinence and nocturnal diarrhea. He is having painless bright red blood and clots per rectum with almost every BM. Denies fever or joint pain. He currently has all of his diabetic medications on hold, including his metformin. CT on admission showed pancolitis. Gallbladder in situ. Hepatitis panel and TB negative, Fecal calprotectin > 2200 and CRP 1.2. Patient was approved as outpatient for Humira but has not received his starter dosing in the mail. Per pharmacy we would be unable to start him while inpatient since this is an outpatient medication for him. Continue antibiotics Continue steroids while inpatient Mesalamine enemas while inpatient Our office will check on the status of his Humira 2) Pancreatitis/elevated lipase:??CT last admission showed acute interstitial pancreatitis. Lipase still elevated but trending down 707-->550-->489. Patient admits to bilateral upper abdominal pain that recently seemed to get worse after eating fatty foods. LFT's normal. Pain has improved but not resolved since admission. Patient admits to social alcohol use more on the weekends but has been decreasing alcohol use recently.? Continue supportive care 3) Reflux:?Patient admits to reflux that has been well controlled with omeprazole 20 mg BID. Patient has never had an EGD. Continue PPI outpatient EGD which we can further discuss during outpatient visit Thank you for allowing me to participate in the care of this very nice p
[2023-09-15 09:44] LABS: Basophils Percent Auto 0.2 % (0.2-1.2); Eosinophils Percent Auto 0.3 % (0-4.4); Hematocrit 30.7 % (42.0-52.0); Hemoglobin 10.4 g/dL (14.0-18.0); Immature Granulocyte Absolute 0.12 K/mm3 (0.00-0.031); Immature Granulocyte Percent A 0.9 % (0-0.5); Lymphocytes Absolute Auto 1.41 K/mm3 (0.9-3.2); Lymphocytes Percent Auto 11.1 % (18.3-44.2); Mean Corpuscular HGB Conc 33.9 g/dl (32-36); Mean Corpuscular Hemoglobin 29.5 pg (26-34); Mean Corpuscular Volume 87.2 fl (80-100); Mean Platelet Volume 10.6 fl (7.4-10.4); Monocytes Absolute Auto 1.1 K/mm3 (0.1-0.6); Monocytes Percent Auto 8.6 % (2.6-8.5); Neutrophils Percent Auto 78.9 % (45.5-73.1); Platelet Count Result 307 k/mm3 (150-375); Red Blood Count 3.52 M/mm3 (4.6-6.20); Red Cell Distribution Width 12.3 % (11.5-14.5); White Blood Count 12.7 K/mm3 (4.5-10.0)
[2023-09-15] MEDS: NICOTINE (*PBKC) 14 MG PATCH 1 PATCH TRANSDERM (10:11)
[2023-09-15 11:14] LABS: Glucose Point of Care 300 mg/dl (65-105)
[2023-09-15] MEDS: INSULIN ASPART (*BKC) 100 UNITS/ML SUB-Q ×2 (11:45→18:22)
[2023-09-15 11:48] VITALS: BMI 23.6
[2023-09-15] MEDS: LACTATED RINGERS 1,000 ML 100 ML IV CONT ×2 (11:54→22:31)
[2023-09-15 14:00] VITALS: BP 92/60; PULSE 64; RESP 18; TEMP 35.9; O2SAT 98
[2023-09-15 14:09] LABS: Alanine Aminotransferase 11 U/L (6-50); Albumin Level 3.3 g/dL (3.5-5.1); Alkaline Phosphatase 41 U/L (38-126); Anion Gap 9 mmol/L (4-12); Aspartate Amino Transferase 13 U/L (17-59); Bilirubin,Total 0.3 mg/dL (0.2-1.3); Blood Urea Nitrogen 10 mg/dL (9-20); Calcium 8.9 mg/dL (8.4-10.2); Carbon Dioxide 23 mmol/L (22-30); Chloride 100 mmol/L (98-107); Estimated CRCL calculation 110 ml/min; Estimated Glomerular Filt Rate > 60; Glucose 340 mg/dL (65-110); Potassium 3.9 mmol/L (3.4-5.0); Sodium 132 mmol/L (137-145)
[2023-09-15 14:49] VITALS: BP 95/63; PULSE 64; RESP 20; TEMP 36.6; O2SAT 97
[2023-09-15 16:39] LABS: Glucose Point of Care 329 mg/dl (65-105)
[2023-09-15 20:02] LABS: Glucose Point of Care 250 mg/dl (65-105)
[2023-09-15 20:10] VITALS: BP 97/66; PULSE 97; RESP 17; TEMP 36.5; O2SAT 98
[2023-09-15] MEDS: HYDROmorphone HCL INJ (*CRX) 1 MG/ML SYR 0.5 MG IV PUSH (20:25)
[2023-09-15] MEDS: FENOFIBRATE 160 MG TABLET PO (20:27)
[2023-09-15] MEDS: DIVALPROEX SODIUM ER 500 MG TAB.24H 1500 MG PO (20:27)
[2023-09-15] MEDS: ALPRAZolam (*CRX) 0.25 MG TABLET PO (22:29)
[2023-09-16] MEDS: HYDROmorphone HCL INJ (*CRX) 1 MG/ML SYR IV PUSH ×5 (01:19→20:47)
[2023-09-16 05:39] LABS: Glucose Point of Care 178 mg/dl (65-105)
[2023-09-16 05:49] VITALS: BP 91/63; PULSE 65; RESP 16; TEMP 36.3; O2SAT 98
[2023-09-16] MEDS: ALPRAZolam (*CRX) 0.25 MG TABLET PO ×2 (05:58→20:34)
[2023-09-16 06:16] LABS: Basophils Percent Auto 0.4 % (0.2-1.2); Eosinophils Absolute Auto 0.2 K/mm3 (0-0.3); Eosinophils Percent Auto 2.1 % (0-4.4); Immature Granulocyte Absolute 0.07 K/mm3 (0.00-0.031); Immature Granulocyte Percent A 0.6 % (0-0.5); Lymphocytes Absolute Auto 2.14 K/mm3 (0.9-3.2); Lymphocytes Percent Auto 19.4 % (18.3-44.2); Mean Corpuscular HGB Conc 33.3 g/dl (32-36); Mean Corpuscular Hemoglobin 29.1 pg (26-34); Mean Corpuscular Volume 87.2 fl (80-100); Mean Platelet Volume 10.7 fl (7.4-10.4); Monocytes Absolute Auto 1.5 K/mm3 (0.1-0.6); Monocytes Percent Auto 13.1 % (2.6-8.5); Neutrophils Absolute Auto 7.1 K/mm3 (1.3-6.7); Neutrophils Percent Auto 64.4 % (45.5-73.1); Platelet Count Result 305 k/mm3 (150-375); Red Blood Count 3.44 M/mm3 (4.6-6.20); Red Cell Distribution Width 12.7 % (11.5-14.5)
[2023-09-16 06:30] LABS: Alanine Aminotransferase 7 U/L (6-50); Albumin Level 3.1 g/dL (3.5-5.1); Alkaline Phosphatase 39 U/L (38-126); Anion Gap 4 mmol/L (4-12); Aspartate Amino Transferase 10 U/L (17-59); Bilirubin,Total 0.3 mg/dL (0.2-1.3); Blood Urea Nitrogen 6 mg/dL (9-20); Calcium 8.8 mg/dL (8.4-10.2); Carbon Dioxide 28 mmol/L (22-30); Chloride 105 mmol/L (98-107); Estimated CRCL calculation 110 ml/min; Estimated Glomerular Filt Rate > 60; Glucose 188 mg/dL (65-110); Lipase 479 U/L (23-300); Potassium 3.8 mmol/L (3.4-5.0); Sodium 137 mmol/L (137-145)
[2023-09-16 06:40] LABS: Iron 26 ug/dL (49-181)
[2023-09-16 06:49] LABS: Percent Iron Saturation 10 % (20-50)
[2023-09-16 07:34] LABS: Folic Acid 7.5 ng/mL (2.76->20)
[2023-09-16 07:45] LABS: Glucose Point of Care 191 mg/dl (65-105)
--- NOTE | 2023-09-16 08:34 | PM.IMPN ---
Progress Note: A&P Assessment and Plan (1) Pancolitis: Code(s): K51.00 - Ulcerative (chronic) pancolitis without complications Status: Acute Assessment and Plan: Last colonoscopy 12/07/2021 showed diverticulosis, ulcerative proctitis and internal hemorrhoids. Family Hx of colon cancer ( father dx in his 50's) and gastric cancer ( paternal grandfather). Previously on mesalamine with no response. Patient last seen by GI 09/08 for ulcerative proctitis and discharged with rowasa enemas at bedtime, with plan to obtain colonoscopy in 3-4 weeks and start humira as outpatient. Patient had not received humira from [facility]. - CT abd/pelvis 09/13: Pancolitis.Mild mesenteric lymphadenopathy, likely reactive. - GI recommends: Continue antibiotics Continue steroids while inpatient Humira induction dose planned for Friday. Per patient this will be inpatioent. - Advance diet as tolerated - IV fluids - Methylprednisolone 40 mg IV daily - started on Zosyn on 09/13 - negative for TB and Hep B in 08/2023 (2) Diabetes: Code(s): E11.9 - Type 2 diabetes mellitus without complications Status: Acute Assessment and Plan: - hypoglycemia protocol - POC blood glucose ACHS - home medication - Plan on starting Jardiance. Waiting on arrival from [facility]. Managed by PCP. - correct regimen ordered - low dose TIDWM and HS - A1C 09/08/23: 6.0 (3) Bipolar disorder: Code(s): F31.9 - Bipolar disorder, unspecified Status: Acute Assessment and Plan: Continue Depakote 500 mg TID. (4) Pancreatitis: Qualifiers: Acute pancreatitis complication: unspecified Chronicity: acute Pancreatitis type: idiopathic Qualified Code(s): K85.00 - Idiopathic acute pancreatitis without necrosis or infection Code(s): K85.90 - Acute pancreatitis without necrosis or infection, unspecified Status: Acute Assessment and Plan: CT last admission showed acute interstitial pancreatitis. Lipase still elevated but trending down 707-->550-->489 -> 479. Patient admits to bilateral upper abdominal pain that recently seemed to get worse after eating fatty foods. LFT's normal. Pain has improved but not resolved since admission. Patient admits to social alcohol use more on the weekends but has been decreasing alcohol use recently.? - Continue supportive care (5) GERD (gastroesophageal reflux disease): Qualifiers: Esophagitis presence: esophagitis presence not specified Qualified Code(s): K21.9 - Gastro-esophageal reflux disease without esophagitis Code(s): K21.9 - Gastro-esophageal reflux disease without esophagitis Status: Acute Assessment and Plan: Patient admits to reflux that has been well controlled with omeprazole 20 mg BID. Patient has never had an EGD. - Continue PPI - outpatient EGD which we can further discuss during outpatient visit (6) Iron deficiency anemia: Code(s): D50.9 - Iron deficiency anemia, unspecified Status: Acute Assessment and Plan: Secondary to GI bleed with ulcerative proctitis. Iron studies showed iron deficiency due to colitis.? He is not taking any oral iron supplement.?Evaluated by Dr. Reeves and will be started on IV iron infusion with plan to follow up in office with repeat blood test and further infusions if needed. Time Spent With Patient Time with patient: 25 - 35 minutes Subjective Date/time seen: 09/16/23 08:34 Interval history: 48 y/o M presents here with abdominal pain with PMH of IBD, diverticulosis, GERD, HLD, DM2, asthma, depression, and bipolar disorder. Patient is pleasant lying in bed. He states that he had a terrible night last night due to uncontrolled pain. He had several episodes of diarrhea and he was concerned that his PO medications were not being absorbed. He states that he was having severe cramping and though he received his current pain medication the pain continued to advance. Started paticasimiro
[2023-09-16] MEDS: methylPREDNISolone SOD SUCC 40 MG VIAL IV PUSH (09:14)
[2023-09-16] MEDS: NICOTINE (*PBKC) 14 MG PATCH 1 PATCH TRANSDERM (09:14)
[2023-09-16] MEDS: PIPERACILLN/TAZ 3.375GM/NS50ML 3.375 GM/50 ML BAG IVPB ×3 (09:14→20:37)
[2023-09-16] MEDS: LACTATED RINGERS 1,000 ML 100 ML IV CONT ×2 (09:14→18:09)
[2023-09-16] MEDS: PANTOPRAZOLE 40 MG TABLET PO (09:15)
[2023-09-16 11:26] LABS: Glucose Point of Care 254 mg/dl (65-105)
--- NOTE | 2023-09-16 12:37 | PDONCCN ---
HPI - Date of Consult Date/Time: 09/16/23 12:37 Requesting Physician: Xiomy Sanchez MD Primary Care Provider: Jessica Tuttle, - Consult Narrative Reason for consult: Iron deficiency anemia Narrative: Judson Sena is a 48 year old male with diagnosis of ulcerative colitis came into the ER with worsening of abdominal discomfort diarrhea and hematochezia. CT scan of the abdomen and pelvis was performed that showed farley colitis with mild mesenteric lymphadenopathy likely reactive. Patient was diagnosed with ulcerative proctitis in 2021 and only use mesalamine briefly without any improvement. Plan was to start Humira but was not approved by the insurance. Labs showed hemoglobin of 10 with iron 26 and iron saturation of 10%. Is quite symptomatic with tiredness and fatigue and abdominal discomfort along with some nausea and diarrhea. Denies any other complaints. Review of Systems - Review of Systems All systems reviewed & are unremarkable except as noted in HPI and bel - Neurologic Reports weakness, Denies focal weakness, Denies sensory deficit [facility]LY [facility] Medical History: Medical History (Last Updated 09/14/23 @ 20:48 by Xiomy Sanchez MD) Alcohol use Asthma Bipolar disorder Depression Diabetes Familial hypertriglyceridemia Family history of colon cancer in father GERD (gastroesophageal reflux disease) Hematochezia Proctitis Surgical History: Surgical History (Last Reviewed 09/08/23 @ 11:03 by ZAIRE Perez) H/O excision of mass 02/19/21 Excision 2 cm scalp cyst, Excision 1 cm scalp cyst x4 H/O shoulder surgery History of umbilical hernia repair 25 years ago with mesh Family History: Family History (Last Reviewed 09/08/23 @ 11:02 by ZAIRE Perez) Other Cancer Cerebrovascular accident Diabetes mellitus Hypertension - Social History Social History: Social History (Last Reviewed 09/08/23 @ 11:02 by ZAIRE Perez) Alcohol Use: Alcohol intake: current Drinks per week: 3 Alcohol use details: social Substance Use: Substance use: current Substance use type: marijuana Other substance usage details: once biweekly; vapes Others: Spiritual care concerns: No Living Arrangements: Living arrangements: with family Oppucation/Education: Occupation/Education: occupation Smoking Status: Smoking status: Current every day smoker Tobacco type: e-cigarettes/vaping Smokeless tobacco user: chewing tobacco Smoking Pack-years: Smoking packs per day: 0.5 Smoking cigarettes per day: 10.0 Years smoked: 12 Smoking pack-years: 6.00 Social Determinants of Health: Do You Feel Safe in your Home?: Yes Has the Lack of Transportation Kept You From Medical Appointments or From Getting Medications?: No Within the Past 12 Months, Were You Worried Whether Your Food Would Run Out Before You Got Money to Buy More?: Never True What is Your Housing Situation Today?: I Have Housing Are You Worried That in the Next 2 Months, You May Not Have Your Own Housing to Live In?: No Do You Have Trouble Paying Your Heating Or Electricity Bill?: No Do You Have Trouble Paying For Medicines?: No Are You Currently Unemployed and Looking for Work?: No Highest Level of Education Completed: Don't Know Do You Have Trouble With Childcare or the Care of a Family Member?: No Exam - Vital Signs Vital Signs - 24 hr 09/15/23 14:00 09/15/23 14:49 09/15/23 20:10 Temperature 35.9 C L 36.6 C 36.5 C Pulse Rate 64 64 97 Respiratory Rate 18 20 17 Blood Pressure 92/60 L 95/63 L 97/66 L Pulse Oximetry 98 97 98 09/16/23 05:49 Temperature 36.3 C L Pulse Rate 65 Respiratory Rate 16 Blood Pressure 91/63 L Pulse Oximetry 98 - Exam HEENT: EOMI, PERRLA, mucous membranes moist and pink Neck: supple. No: JVD Lungs: clear to auscultation, normal air movement Heart: no murm
[2023-09-16] MEDS: INSULIN ASPART (*BKC) 100 UNITS/ML SUB-Q ×2 (12:49→18:04)
[2023-09-16 14:00] VITALS: BP 95/62; PULSE 67; RESP 18; TEMP 36.5; O2SAT 99
[2023-09-16] MEDS: DICYCLOMINE HCL INJ 20 MG/2 ML VIAL IM ×2 (15:02→20:34)
--- NOTE | 2023-09-16 15:15 | WPDGIPROGNO ---
Progress Note: A&P Assessment and Plan (1) Ulcerative colitis: Qualifiers: Ulcerative colitis location: ulcerative pancolitis Digestive disease complication type: without complication Qualified Code(s): K51.00 - Ulcerative (chronic) pancolitis without complications Code(s): K51.90 - Ulcerative colitis, unspecified, without complications Status: Acute Assessment and Plan: we just heard that insurance approved [facility] and he will be able to apply induction dose this Friday on iv steroids for now and mesalamine ok to advance diet as tolerated (2) Diarrhea: Code(s): R19.7 - Diarrhea, unspecified Status: Acute (3) Abdominal pain: Qualifiers: Abdominal location: generalized Qualified Code(s): R10.84 - Generalized abdominal pain Code(s): R10.9 - Unspecified abdominal pain Status: Acute (4) Pancreatitis: Qualifiers: Chronicity: acute Pancreatitis type: idiopathic Acute pancreatitis complication: unspecified Qualified Code(s): K85.00 - Idiopathic acute pancreatitis without necrosis or infection Code(s): K85.90 - Acute pancreatitis without necrosis or infection, unspecified Status: Acute (5) Bipolar disorder: Code(s): F31.9 - Bipolar disorder, unspecified Status: Acute (6) Iron deficiency anemia: Code(s): D50.9 - Iron deficiency anemia, unspecified Status: Acute Assessment and Plan: probably also from active UC hematology on board, will get iv iron Subjective Date/time seen: 09/16/23 15:15 Interval history: still with pain but hungry- would like to advance diet Review of Systems Review of Systems: All systems reviewed & are unremarkable except as noted in HPI and below Exam Const: General: cooperative, healthy appearing and no acute distress Orientation/consciousness: oriented to person, oriented to place and oriented to time HENMT: Head: normal to inspection Face/Nose/Sinus: Normal nares present Mouth: Yes moist mucous membranes Eyes: General: appearance normal, both eyes and all related structures Sclera: sclerae normal Neck: Neck: supple Chest: Chest palpation & inspection: normal inspection of the chest Resp: Effort & Inspection: normal respiratory effort and able to speak in complete sentences Auscultation: clear to auscultation bilaterally Cardio: Rate: regular rate Rhythm: regular rhythm GI: Inspection: normal to inspection GI Palp: Yes Soft to palpation, Yes Tenderness to palpation present (GI) (improved) and No Guarding due to palpation present (GI) Auscultation: normal bowel sounds Skin: General skin exam: normal color and no rashes or lesions noted Neuro: General: oriented to person, oriented to place and oriented to time Cranial nerves: Yes Equal, round and reactive pupils present Speech: normal speech Gait exam (Neuro): Normal gait present Extrem: General: normal to inspection and no clubbing, cyanosis or edema Objective Data Vital Signs Vital Signs: Vital Signs - 24 hr 09/15/23 20:10 09/16/23 05:49 09/16/23 14:00 Temperature 97.7 F 97.3 F L 97.7 F Pulse Rate 97 65 67 Respiratory Rate 17 16 18 Blood Pressure 97/66 L 91/63 L 95/62 L Pulse Oximetry 98 98 99 Intake/Output Intake/Output: Intake & Output 09/13/23 09/14/23 09/15/23 09/16/23 23:59 23:59 23:59 23:59 Intake Total 1053.4 4665.3 1256.0 Output Total 0 Balance 1053.4 4665.3 1256.0 Meds/Results Medications: Active Medications Generic Name Dose Route Start Last Admin Trade Name Freq PRN Reason Stop Dose Admin Acetaminophen 1,000 mg 09/14/23 21:37 Acetaminophen 500 Mg Tablet PO Q6H PRN Mild Pain (1-3) or Fever Alprazolam 0.25 mg 09/14/23 21:36 09/16/23 05:58 Alprazolam (*Crx) 0.25 Mg Tablet PO 0.25 mg TID PRN Administration Anxiety Dextrose 12.5 gm 09/15/23 08:42 Dextrose 50% 25 Gm/50 Ml Syringe IV PUSH PRN PRN Hypoglycemi
[2023-09-16 16:39] LABS: Glucose Point of Care 264 mg/dl (65-105)
[2023-09-16 20:00] VITALS: BP 92/54; PULSE 61; RESP 16; TEMP 36; O2SAT 94
[2023-09-16 20:28] LABS: Glucose Point of Care 285 mg/dl (65-105)
[2023-09-16] MEDS: traZODone HCL 50 MG TABLET PO (20:36)
[2023-09-16] MEDS: DIVALPROEX SODIUM ER 500 MG TAB.24H 1500 MG PO (20:36)
[2023-09-16] MEDS: FENOFIBRATE 160 MG TABLET PO (20:36)
[2023-09-17] MEDS: INSULIN HUMAN REGULAR (*BKC) 100 UNITS/ML 6 UNITS SUB-Q (01:54)
[2023-09-17] MEDS: PIPERACILLN/TAZ 3.375GM/NS50ML 3.375 GM/50 ML BAG IVPB ×4 (04:00→21:08)
[2023-09-17] MEDS: HYDROmorphone HCL INJ (*CRX) 1 MG/ML SYR IV PUSH ×4 (04:30→21:09)
[2023-09-17] MEDS: LACTATED RINGERS 1,000 ML 100 ML IV CONT ×2 (04:46→21:10)
[2023-09-17 06:00] VITALS: BP 98/67; PULSE 56; RESP 18; TEMP 35.8; O2SAT 100
[2023-09-17 06:28] LABS: Basophils Percent Auto 0.3 % (0.2-1.2); Eosinophils Absolute Auto 0.3 K/mm3 (0-0.3); Eosinophils Percent Auto 2.3 % (0-4.4); Hematocrit 33.4 % (42.0-52.0); Hemoglobin 10.9 g/dL (14.0-18.0); Immature Granulocyte Absolute 0.12 K/mm3 (0.00-0.031); Lymphocytes Absolute Auto 2.91 K/mm3 (0.9-3.2); Lymphocytes Percent Auto 24.5 % (18.3-44.2); Mean Corpuscular HGB Conc 32.6 g/dl (32-36); Mean Corpuscular Hemoglobin 29.2 pg (26-34); Mean Corpuscular Volume 89.5 fl (80-100); Monocytes Absolute Auto 1.5 K/mm3 (0.1-0.6); Monocytes Percent Auto 12.2 % (2.6-8.5); Neutrophils Absolute Auto 7.1 K/mm3 (1.3-6.7); Neutrophils Percent Auto 59.7 % (45.5-73.1); Platelet Count Result 315 k/mm3 (150-375); Red Blood Count 3.73 M/mm3 (4.6-6.20); Red Cell Distribution Width 12.7 % (11.5-14.5); White Blood Count 11.9 K/mm3 (4.5-10.0)
[2023-09-17 06:39] LABS: Alanine Aminotransferase 9 U/L (6-50); Albumin Level 3.4 g/dL (3.5-5.1); Alkaline Phosphatase 39 U/L (38-126); Anion Gap 3 mmol/L (4-12); Aspartate Amino Transferase 15 U/L (17-59); Bilirubin,Total 0.3 mg/dL (0.2-1.3); Blood Urea Nitrogen 7 mg/dL (9-20); Calcium 8.8 mg/dL (8.4-10.2); Carbon Dioxide 30 mmol/L (22-30); Chloride 103 mmol/L (98-107); Estimated CRCL calculation 125 ml/min; Estimated Glomerular Filt Rate > 60; Glucose 159 mg/dL (65-110); Potassium 3.4 mmol/L (3.4-5.0); Sodium 136 mmol/L (137-145)
[2023-09-17 07:57] LABS: Glucose Point of Care 159 mg/dl (65-105)
[2023-09-17] MEDS: PANTOPRAZOLE 40 MG TABLET PO ×2 (08:37→17:11)
[2023-09-17] MEDS: MAGNESIUM OXIDE 200 MG TABLET PO (08:37)
[2023-09-17] MEDS: NICOTINE (*PBKC) 21 MG PATCH 1 PATCH TRANSDERM (08:50)
[2023-09-17] MEDS: methylPREDNISolone SOD SUCC 40 MG VIAL IV PUSH (08:51)
--- NOTE | 2023-09-17 09:42 | PCNFU ---
Nutrition Follow-Up Complete: Suboptimal po intake related to clear liquid status as evidenced by diet orders - RESOLVED Diet advanced - Goal Met PO intake 75% or greater - Goal being met Goal: Pt current nutrition is low fat, diabetic consistent carb. Glucerna BID for additional 220 kcal and 10 g protein each. Nutrition recommendation: No new nutrition recommendations. Continue with current care plan and orders Last recorded weight is 78.9 kg. Bowel Motility: + 2 BM 09/17/23 Labs Reviewed: Hgb 10.9, Hct 33.4, Alb 3.4, Na 136, BUN 7 Meds Noted: Novolog, protonix Skin: WNL Additional Notes: Diet is advanced, intakes are good. Ulcerative colitis Monitor diet order, intake, tolerance, wt, labs. Follow up in 5 days.
[2023-09-17] MEDS: IRON SUCROSE COMPLEX 500 MG in SODIUM CHLORIDE 0.9% IV 250 ML 79 MG IVPB (10:10)
[2023-09-17 11:38] LABS: Glucose Point of Care 258 mg/dl (65-105)
[2023-09-17] MEDS: INSULIN ASPART (*BKC) 100 UNITS/ML SUB-Q ×2 (12:25→17:12)
[2023-09-17 13:00] VITALS: BMI 23.6
[2023-09-17 13:48] VITALS: BP 95/58; PULSE 67; RESP 20; TEMP 36.1; O2SAT 98
--- NOTE | 2023-09-17 14:26 | PM.IMPN ---
Progress Note: A&P Assessment and Plan (1) Pancolitis: Code(s): K51.00 - Ulcerative (chronic) pancolitis without complications Status: Acute Assessment and Plan: Last colonoscopy 12/07/2021 showed diverticulosis, ulcerative proctitis and internal hemorrhoids. Family Hx of colon cancer ( father dx in his 50's) and gastric cancer ( paternal grandfather). Previously on mesalamine with no response. Patient last seen by GI 09/08 for ulcerative proctitis and discharged with rowasa enemas at bedtime, with plan to obtain colonoscopy in 3-4 weeks and start Humira as outpatient. Patient had not received humira from [facility] - CT abd/pelvis 09/13: Pancolitis.Mild mesenteric lymphadenopathy, likely reactive. - GI recommends: Continue antibiotics, Continue steroids while inpatient, Humira induction dose planned for Friday. Per patient this will be inpatient. - Advance diet as tolerated - IV fluids - Methylprednisolone 40 mg IV daily - started on Zosyn on 09/13 - negative for TB and Hep B in 08/2023 - advance diet as tolerated. (2) Diabetes: Code(s): E11.9 - Type 2 diabetes mellitus without complications Status: Acute Assessment and Plan: - hypoglycemia protocol - POC blood glucose ACHS - home medication - Plan on starting Jardiance. Waiting on arrival from [facility] Managed by PCP. - correct regimen ordered - low dose TIDWM and HS - A1C 09/08/23: 6.0 (3) Bipolar disorder: Code(s): F31.9 - Bipolar disorder, unspecified Status: Acute Assessment and Plan: Continue Depakote 500 mg TID. (4) Pancreatitis: Qualifiers: Chronicity: acute Pancreatitis type: idiopathic Acute pancreatitis complication: unspecified Qualified Code(s): K85.00 - Idiopathic acute pancreatitis without necrosis or infection Code(s): K85.90 - Acute pancreatitis without necrosis or infection, unspecified Status: Acute Assessment and Plan: CT last admission showed acute interstitial pancreatitis. Lipase still elevated but trending down 707-->550-->489 -> 479. Patient admits to bilateral upper abdominal pain that recently seemed to get worse after eating fatty foods. LFT's normal. Pain has improved but not resolved since admission. Patient admits to social alcohol use more on the weekends but has been decreasing alcohol use recently.? - Continue supportive care (5) GERD (gastroesophageal reflux disease): Qualifiers: Esophagitis presence: esophagitis presence not specified Qualified Code(s): K21.9 - Gastro-esophageal reflux disease without esophagitis Code(s): K21.9 - Gastro-esophageal reflux disease without esophagitis Status: Acute Assessment and Plan: Patient admits to reflux that has been well controlled with omeprazole 20 mg BID. Patient has never had an EGD. - Continue PPI - outpatient EGD which we can further discuss during outpatient visit (6) Iron deficiency anemia: Code(s): D50.9 - Iron deficiency anemia, unspecified Status: Acute Assessment and Plan: Secondary to GI bleed with ulcerative proctitis. Iron studies showed iron deficiency due to colitis.? He is not taking any oral iron supplement.?Evaluated by Dr. Reeves and will be started on IV iron infusion with plan to follow up in office with repeat blood test and further infusions if needed. Subjective Date/time seen: 09/17/23 14:26 Interval history: plan for Humira induction on Friday. Continue steroids and advancement of patient's diet. he is achieving pain control with opioid analgesics. He is still having many bowel movements daily. He states that they are still bloody and has mucous in the stools which both are not abnormal for him. His H&H remained stable. Exam Narrative: GENERAL: Comfortable, no acute distress HENMT: moist mucous membranes EYES: EOM intact b/l NECK: no lymphadenopathy RESPIRATORY: clear to auscultation, no increased respirato
[2023-09-17 16:41] LABS: Glucose Point of Care 336 mg/dl (65-105)
--- NOTE | 2023-09-17 16:44 | WPDGIPROGNO ---
Progress Note: A&P Assessment and Plan (1) Ulcerative colitis: Qualifiers: Ulcerative colitis location: ulcerative pancolitis Digestive disease complication type: without complication Qualified Code(s): K51.00 - Ulcerative (chronic) pancolitis without complications Code(s): K51.90 - Ulcerative colitis, unspecified, without complications Status: Acute Assessment and Plan: he is planning to get first induction dose of humira tomorrow- his neighbor will bring it to the hospital on iv steroids for now and mesalamine tolerating diet, still pain but improving (2) Diarrhea: Code(s): R19.7 - Diarrhea, unspecified Status: Acute (3) Abdominal pain: Qualifiers: Abdominal location: generalized Qualified Code(s): R10.84 - Generalized abdominal pain Code(s): R10.9 - Unspecified abdominal pain Status: Acute Assessment and Plan: still requiring iv dilaudid but better (4) Pancreatitis: Qualifiers: Chronicity: acute Pancreatitis type: idiopathic Acute pancreatitis complication: unspecified Qualified Code(s): K85.00 - Idiopathic acute pancreatitis without necrosis or infection Code(s): K85.90 - Acute pancreatitis without necrosis or infection, unspecified Status: Acute (5) Bipolar disorder: Code(s): F31.9 - Bipolar disorder, unspecified Status: Acute (6) Iron deficiency anemia: Code(s): D50.9 - Iron deficiency anemia, unspecified Status: Acute Assessment and Plan: probably also from active UC hematology on board, iv iron Subjective Date/time seen: 09/17/23 16:44 Interval history: feeling better also he just heard that insurance will deliver his humira tomorrow to his home. Review of Systems Review of Systems: All systems reviewed & are unremarkable except as noted in HPI and below Exam Const: General: cooperative, healthy appearing and no acute distress Orientation/consciousness: oriented to person, oriented to place and oriented to time HENMT: Head: normal to inspection Face/Nose/Sinus: Normal nares present Mouth: Yes moist mucous membranes Eyes: General: appearance normal, both eyes and all related structures Sclera: sclerae normal Neck: Neck: supple Chest: Chest palpation & inspection: normal inspection of the chest Resp: Effort & Inspection: normal respiratory effort and able to speak in complete sentences Auscultation: clear to auscultation bilaterally Cardio: Rate: regular rate Rhythm: regular rhythm GI: Inspection: normal to inspection GI Palp: Yes Soft to palpation, Yes Tenderness to palpation present (GI) (improved) and No Guarding due to palpation present (GI) Auscultation: normal bowel sounds Skin: General skin exam: normal color and no rashes or lesions noted Neuro: General: oriented to person, oriented to place and oriented to time Cranial nerves: Yes Equal, round and reactive pupils present Speech: normal speech Gait exam (Neuro): Normal gait present Extrem: General: normal to inspection Objective Data Vital Signs Vital Signs: Vital Signs - 24 hr 09/16/23 20:00 09/17/23 06:00 09/17/23 09:00 Temperature 96.8 F L 96.5 F L Pulse Rate 61 56 L Respiratory Rate 16 18 Blood Pressure 92/54 L 98/67 L Pulse Oximetry 94 100 Oxygen Delivery Room Air 09/17/23 13:48 Temperature 97.0 F L Pulse Rate 67 Respiratory Rate 20 Blood Pressure 95/58 L Pulse Oximetry 98 Oxygen Delivery Intake/Output Intake/Output: Intake & Output 09/14/23 09/15/23 09/16/23 09/17/23 23:59 23:59 23:59 23:59 Intake Total 1053.4 4665.3 3613.7 2246 Output Total 0 Balance 1053.4 4665.3 3613.7 2246 Meds/Results Medications: Active Medications Generic Name Dose Route Start Last Admin Trade Name Freq PRN Reason Stop Dose Admin Acetaminophen 1,000 mg 09/14/23 21:37 Acetaminophen 500 Mg Tablet PO Q6H PRN Mild Pain (1-3) or Fever Alprazolam
[2023-09-17] MEDS: FENOFIBRATE 160 MG TABLET PO (21:09)
[2023-09-17] MEDS: traZODone HCL 50 MG TABLET PO (21:09)
[2023-09-17] MEDS: DIVALPROEX SODIUM ER 500 MG TAB.24H 1500 MG PO (21:09)
[2023-09-17] MEDS: ALPRAZolam (*CRX) 0.25 MG TABLET PO (21:09)
[2023-09-17 21:58] LABS: Glucose Point of Care 313 mg/dl (65-105)
[2023-09-17 22:00] VITALS: BP 105/70; PULSE 55; RESP 18; TEMP 36.8; O2SAT 99
[2023-09-18] MEDS: PIPERACILLN/TAZ 3.375GM/NS50ML 3.375 GM/50 ML BAG IVPB ×3 (03:12→14:36)
[2023-09-18] MEDS: HYDROmorphone HCL INJ (*CRX) 1 MG/ML SYR IV PUSH ×5 (03:52→22:58)
[2023-09-18 06:00] VITALS: BP 88/58; PULSE 56; RESP 16; TEMP 36.4; O2SAT 98
[2023-09-18 06:18] LABS: Basophils Absolute Auto 0.1 K/mm3 (0.0-0.1); Basophils Percent Auto 0.7 % (0.2-1.2); Eosinophils Absolute Auto 0.1 K/mm3 (0-0.3); Eosinophils Percent Auto 1.1 % (0-4.4); Hematocrit 31.5 % (42.0-52.0); Hemoglobin 10.1 g/dL (14.0-18.0); Immature Granulocyte Absolute 0.24 K/mm3 (0.00-0.031); Immature Granulocyte Percent A 2.2 % (0-0.5); Lymphocytes Absolute Auto 2.69 K/mm3 (0.9-3.2); Mean Corpuscular HGB Conc 32.1 g/dl (32-36); Mean Corpuscular Volume 90.5 fl (80-100); Mean Platelet Volume 11.1 fl (7.4-10.4); Monocytes Absolute Auto 1.4 K/mm3 (0.1-0.6); Monocytes Percent Auto 12.8 % (2.6-8.5); Neutrophils Absolute Auto 6.2 K/mm3 (1.3-6.7); Neutrophils Percent Auto 58.2 % (45.5-73.1); Platelet Count Result 302 k/mm3 (150-375); Red Blood Count 3.48 M/mm3 (4.6-6.20); Red Cell Distribution Width 12.4 % (11.5-14.5); White Blood Count 10.7 K/mm3 (4.5-10.0)
[2023-09-18 06:33] LABS: Alanine Aminotransferase 8 U/L (6-50); Albumin Level 3.1 g/dL (3.5-5.1); Alkaline Phosphatase 41 U/L (38-126); Anion Gap 3 mmol/L (4-12); Aspartate Amino Transferase 13 U/L (17-59); Bilirubin,Total 0.3 mg/dL (0.2-1.3); Blood Urea Nitrogen 10 mg/dL (9-20); Calcium 8.8 mg/dL (8.4-10.2); Carbon Dioxide 30 mmol/L (22-30); Chloride 104 mmol/L (98-107); Estimated CRCL calculation 125 ml/min; Estimated Glomerular Filt Rate > 60; Glucose 185 mg/dL (65-110); Potassium 3.6 mmol/L (3.4-5.0); Sodium 137 mmol/L (137-145)
[2023-09-18] MEDS: LACTATED RINGERS 1,000 ML 100 ML IV CONT ×2 (08:15→18:40)
[2023-09-18] MEDS: NICOTINE (*PBKC) 21 MG PATCH 1 PATCH TRANSDERM (08:16)
[2023-09-18] MEDS: MAGNESIUM OXIDE 200 MG TABLET PO (08:16)
[2023-09-18] MEDS: PANTOPRAZOLE 40 MG TABLET PO ×2 (08:16→16:55)
[2023-09-18] MEDS: methylPREDNISolone SOD SUCC 40 MG VIAL IV PUSH (08:16)
[2023-09-18] MEDS: IRON SUCROSE COMPLEX 500 MG in SODIUM CHLORIDE 0.9% IV 250 ML 79 MG IVPB (08:28)
[2023-09-18 08:45] LABS: Glucose Point of Care 166 mg/dl (65-105)
[2023-09-18] MEDS: ONDANSETRON INJ 4 MG/2 ML VIAL IV PUSH (09:36)
[2023-09-18] MEDS: INSULIN ASPART (*BKC) 100 UNITS/ML SUB-Q ×2 (12:13→16:55)
[2023-09-18 12:33] LABS: Glucose Point of Care 384 mg/dl (65-105)
--- NOTE | 2023-09-18 13:10 | PM.IMPN ---
Progress Note: A&P Assessment and Plan (1) Pancolitis: Code(s): K51.00 - Ulcerative (chronic) pancolitis without complications Status: Acute Assessment and Plan: Last colonoscopy 12/07/2021 showed diverticulosis, ulcerative proctitis and internal hemorrhoids. Family Hx of colon cancer ( father dx in his 50's) and gastric cancer ( paternal grandfather). Previously on mesalamine with no response. Patient last seen by GI 09/08 for ulcerative proctitis and discharged with rowasa enemas at bedtime, with plan to obtain colonoscopy in 3-4 weeks and start Humira as outpatient. Patient had not received humira from [facility]. - CT abd/pelvis 09/13: Pancolitis.Mild mesenteric lymphadenopathy, likely reactive. - Stool calprotectin 2260 - GI recommends: Continue antibiotics, Continue steroids while inpatient, Humira induction dose 09/17. - IV fluids - Methylprednisolone 40 mg IV daily -- per GI will do 45 total days of steroids on a taper - started on Zosyn on 09/13 transition to Augmentin 09/17 in the pm - negative for TB and Hep B in 08/2023 - Low fate diet (2) Diabetes: Code(s): E11.9 - Type 2 diabetes mellitus without complications Status: Acute Assessment and Plan: - hypoglycemia protocol - POC blood glucose ACHS - home medication - Plan on starting Jardiance. Waiting on arrival from [facility]. Managed by PCP. - correct regimen ordered - low dose TIDWM and HS - A1C 09/08/23: 6.0 (3) Bipolar disorder: Code(s): F31.9 - Bipolar disorder, unspecified Status: Acute Assessment and Plan: Continue Depakote 500 mg TID. (4) Pancreatitis: Qualifiers: Chronicity: acute Pancreatitis type: idiopathic Acute pancreatitis complication: unspecified Qualified Code(s): K85.00 - Idiopathic acute pancreatitis without necrosis or infection Code(s): K85.90 - Acute pancreatitis without necrosis or infection, unspecified Status: Acute Assessment and Plan: CT last admission showed acute interstitial pancreatitis. Lipase still elevated but trending down 707-->550-->489 -> 479. Patient admits to bilateral upper abdominal pain that recently seemed to get worse after eating fatty foods. LFT's normal. Pain has improved but not resolved since admission. Patient admits to social alcohol use more on the weekends but has been decreasing alcohol use recently.? - Continue supportive care (5) GERD (gastroesophageal reflux disease): Qualifiers: Esophagitis presence: esophagitis presence not specified Qualified Code(s): K21.9 - Gastro-esophageal reflux disease without esophagitis Code(s): K21.9 - Gastro-esophageal reflux disease without esophagitis Status: Acute Assessment and Plan: Patient admits to reflux that has been well controlled with omeprazole 20 mg BID. Patient has never had an EGD. - Continue PPI - outpatient EGD which we can further discuss during outpatient visit (6) Iron deficiency anemia: Code(s): D50.9 - Iron deficiency anemia, unspecified Status: Acute Assessment and Plan: Secondary to GI bleed with ulcerative proctitis. Iron studies showed iron deficiency due to colitis.? He is not taking any oral iron supplement.?Evaluated by Dr. Reeves and will be started on IV iron infusion with plan to follow up in office with repeat blood test and further infusions if needed. Subjective Date/time seen: 09/18/23 13:10 Interval history: Patient is still having frequent diarrhea although it is somewhat improving. I have discussed with GI and patient will get dose of Humira today. Will recheck stool calprotectin tomorrow. Will plan to do a 45 days steroid taper per GI recommendations. Total of 7 days of antibiotic therapy. He denies any nausea or vomiting. Exam Narrative: GENERAL: Comfortable, no acute distress HENMT: moist mucous membranes EYES: EOM intact b/l NECK:
[2023-09-18 14:00] VITALS: BP 92/61; PULSE 70; RESP 16; TEMP 36.6; O2SAT 96
--- NOTE | 2023-09-18 15:18 | WPDGIPROGNO ---
Progress Note: A&P Assessment and Plan (1) Ulcerative colitis: Qualifiers: Ulcerative colitis location: ulcerative pancolitis Digestive disease complication type: without complication Qualified Code(s): K51.00 - Ulcerative (chronic) pancolitis without complications Code(s): K51.90 - Ulcerative colitis, unspecified, without complications Status: Acute Assessment and Plan: hopefull today will get first induction dose of humira on iv steroids for now, when pain is improved then he can go home with slow prednisone taper (decrease 5 mg every 5 days) tolerating diet, still pain (2) Diarrhea: Code(s): R19.7 - Diarrhea, unspecified Status: Acute Assessment and Plan: today better but still loose stool (3) Abdominal pain: Qualifiers: Abdominal location: generalized Qualified Code(s): R10.84 - Generalized abdominal pain Code(s): R10.9 - Unspecified abdominal pain Status: Acute Assessment and Plan: still requiring iv dilaudid but better (4) Pancreatitis: Qualifiers: Chronicity: acute Pancreatitis type: idiopathic Acute pancreatitis complication: unspecified Qualified Code(s): K85.00 - Idiopathic acute pancreatitis without necrosis or infection Code(s): K85.90 - Acute pancreatitis without necrosis or infection, unspecified Status: Acute (5) Bipolar disorder: Code(s): F31.9 - Bipolar disorder, unspecified Status: Acute (6) Iron deficiency anemia: Code(s): D50.9 - Iron deficiency anemia, unspecified Status: Acute Assessment and Plan: probably also from active UC hematology on board, iv iron Subjective Date/time seen: 09/18/23 15:18 Interval history: still requiring iv pain meds as needed, he does not feel ready to leave just yet, afraid that will have severe pain without access to pain med Review of Systems Review of Systems: All systems reviewed & are unremarkable except as noted in HPI and below Exam Const: General: cooperative, healthy appearing and no acute distress Orientation/consciousness: oriented to person, oriented to place and oriented to time HENMT: Head: normal to inspection Face/Nose/Sinus: Normal nares present Mouth: Yes moist mucous membranes Eyes: General: appearance normal, both eyes and all related structures Neck: Neck: supple Chest: Chest palpation & inspection: normal inspection of the chest Resp: Effort & Inspection: normal respiratory effort and able to speak in complete sentences Auscultation: clear to auscultation bilaterally Cardio: Rate: regular rate Rhythm: regular rhythm GI: Inspection: normal to inspection GI Palp: Yes Soft to palpation, Yes Tenderness to palpation present (GI) (only mild, no rebound) and No Guarding due to palpation present (GI) Auscultation: normal bowel sounds Skin: General skin exam: normal color and no rashes or lesions noted Neuro: General: oriented to person, oriented to place and oriented to time Cranial nerves: Yes Equal, round and reactive pupils present Speech: normal speech Gait exam (Neuro): Normal gait present Extrem: General: normal to inspection Objective Data Vital Signs Vital Signs: Vital Signs - 24 hr 09/17/23 22:00 09/17/23 20:00 09/18/23 06:00 Temperature 98.3 F 97.6 F Pulse Rate 55 L 56 L Respiratory Rate 18 16 Blood Pressure 105/70 88/58 L Pulse Oximetry 99 98 Oxygen Delivery Room Air 09/18/23 08:30 09/18/23 14:00 Temperature 97.8 F Pulse Rate 70 Respiratory Rate 16 Blood Pressure 92/61 L Pulse Oximetry 96 Oxygen Delivery Room Air Intake/Output Intake/Output: Intake & Output 09/15/23 09/16/23 09/17/23 09/18/23 23:59 23:59 23:59 23:59 Intake Total 4665.3 3613.7 4095 5 Output Total 0 Balance 4665.3 3613.7 5 2054 Meds/Results Medications: Active Medications Generic Name Dose Route Start Last Admin Trade Name Freq PRN Reason Stop Dose
[2023-09-18] MEDS: INSULIN ASPART (*BKC) 100 UNITS/ML 9 UNITS SUB-Q (16:55)
[2023-09-18 19:27] LABS: Glucose Point of Care 427 mg/dl (65-105)
[2023-09-18 20:00] VITALS: BP 100/68; PULSE 61; RESP 16; TEMP 36.2; O2SAT 98
[2023-09-18 20:13] LABS: Glucose Point of Care 282 mg/dl (65-105)
[2023-09-18] MEDS: AMOXICILLIN/CLAVULANATE K 875-125 MG TAB 1 TABLET PO (20:36)
[2023-09-18] MEDS: FENOFIBRATE 160 MG TABLET PO (20:37)
[2023-09-18] MEDS: ALPRAZolam (*CRX) 0.25 MG TABLET PO (20:37)
[2023-09-18] MEDS: DIVALPROEX SODIUM ER 500 MG TAB.24H 1500 MG PO (20:37)
[2023-09-18] MEDS: traZODone HCL 50 MG TABLET PO (20:37)
[2023-09-19] VITALS: BP 98/56; PULSE 56; RESP 20; TEMP 36.4; O2SAT 99
[2023-09-19 06:00] VITALS: BP 90/60; PULSE 56; RESP 18; TEMP 35.3; O2SAT 98
[2023-09-19] MEDS: LACTATED RINGERS 1,000 ML 100 ML IV CONT ×2 (06:07→16:32)
[2023-09-19] MEDS: HYDROmorphone HCL INJ (*CRX) 1 MG/ML SYR IV PUSH (06:08)
[2023-09-19 06:31] LABS: Basophils Percent Auto 0.2 % (0.2-1.2); Eosinophils Absolute Auto 0.2 K/mm3 (0-0.3); Eosinophils Percent Auto 1.3 % (0-4.4); Hematocrit 31.3 % (42.0-52.0); Hemoglobin 9.9 g/dL (14.0-18.0); Immature Granulocyte Absolute 0.73 K/mm3 (0.00-0.031); Immature Granulocyte Percent A 6.4 % (0-0.5); Lymphocytes Percent Auto 32.4 % (18.3-44.2); Mean Corpuscular HGB Conc 31.6 g/dl (32-36); Mean Corpuscular Hemoglobin 28.9 pg (26-34); Mean Corpuscular Volume 91.5 fl (80-100); Mean Platelet Volume 11.1 fl (7.4-10.4); Monocytes Absolute Auto 1.2 K/mm3 (0.1-0.6); Monocytes Percent Auto 10.8 % (2.6-8.5); Neutrophils Absolute Auto 5.6 K/mm3 (1.3-6.7); Neutrophils Percent Auto 48.9 % (45.5-73.1); Nucleated Red Blood Cells Perc 0.2 % (0.0-0.2); Platelet Count Result 270 k/mm3 (150-375); Red Blood Count 3.42 M/mm3 (4.6-6.20); Red Cell Distribution Width 12.5 % (11.5-14.5); White Blood Count 11.4 K/mm3 (4.5-10.0)
[2023-09-19 06:41] LABS: Alanine Aminotransferase 9 U/L (6-50); Albumin Level 3.1 g/dL (3.5-5.1); Alkaline Phosphatase 40 U/L (38-126); Anion Gap 3 mmol/L (4-12); Aspartate Amino Transferase 13 U/L (17-59); Bilirubin,Total 0.3 mg/dL (0.2-1.3); Blood Urea Nitrogen 9 mg/dL (9-20); Calcium 8.9 mg/dL (8.4-10.2); Carbon Dioxide 29 mmol/L (22-30); Chloride 104 mmol/L (98-107); Estimated CRCL calculation 125 ml/min; Estimated Glomerular Filt Rate > 60; Glucose 252 mg/dL (65-110); Potassium 3.7 mmol/L (3.4-5.0); Sodium 136 mmol/L (137-145)
[2023-09-19 08:18] LABS: Glucose Point of Care 231 mg/dl (65-105)
--- NOTE | 2023-09-19 08:20 | WPDGIPROGNO ---
Progress Note: A&P Assessment and Plan (1) Ulcerative colitis: Qualifiers: Digestive disease complication type: without complication Ulcerative colitis location: ulcerative pancolitis Qualified Code(s): K51.00 - Ulcerative (chronic) pancolitis without complications Code(s): K51.90 - Ulcerative colitis, unspecified, without complications Status: Acute Assessment and Plan: Received Humira induction dose yesterday Continue PO antibiotics On iv steroids for now, when pain is improved then he can go home with slow prednisone taper (decrease 5 mg every 5 days) Tolerating diet, still pain Start Elavil 25 mg nightly and continue as outpatient Discussed using probiotic, IB Татьяна and Phazyme 500 mg capsules as outpatient for supportive therapy Patient will require limited supply of PRN pain medication on discharge for possible breakthrough pain (2) Diarrhea: Qualifiers: Diarrhea type: unspecified type Qualified Code(s): R19.7 - Diarrhea, unspecified Code(s): R19.7 - Diarrhea, unspecified Status: Acute Assessment and Plan: Improving but still loose (3) Abdominal pain: Qualifiers: Abdominal location: generalized Qualified Code(s): R10.84 - Generalized abdominal pain Code(s): R10.9 - Unspecified abdominal pain Status: Acute Assessment and Plan: Still requiring iv dilaudid but better (4) Pancreatitis: Qualifiers: Acute pancreatitis complication: unspecified Chronicity: acute Pancreatitis type: idiopathic Qualified Code(s): K85.00 - Idiopathic acute pancreatitis without necrosis or infection Code(s): K85.90 - Acute pancreatitis without necrosis or infection, unspecified Status: Acute (5) Bipolar disorder: Code(s): F31.9 - Bipolar disorder, unspecified Status: Acute (6) Iron deficiency anemia: Qualifiers: Iron deficiency anemia type: unspecified iron deficiency Qualified Code(s): D50.9 - Iron deficiency anemia, unspecified Code(s): D50.9 - Iron deficiency anemia, unspecified Status: Acute Assessment and Plan: probably also from active UC hematology on board, iv iron Time Spent With Patient Time with patient: Greater than 35 minutes Subjective Date/time seen: 09/19/23 08:20 Interval history: Follow up ulcerative colitis. Pain is improving but he still requiring pain medication as needed. He got his induction dose of Humira yesterday. Patient is hesitant to leave until he is feeling better. He had multiple questions regarding his current and future care and this was discussed at length with the patient. Review of Systems Constitutional: Constitutional: Reports as per HPI and Reports fatigue ENT: Reports as per HPI and Denies dysphagia Cardiovascular: Cardiovascular: Reports as per HPI, Denies chest pain and Denies palpitations Gastrointestinal: Gastrointestinal: Reports as per HPI, Reports abdominal pain and Reports diarrhea Genitourinary: Genitourinary: Reports no additional male genitourinary complaints Musculoskeletal: Musculoskeletal: Reports no additional musculoskeletal complaints Integumentary/Breasts: Skin/Breast: Reports as per HPI Psychiatric: Psychiatric: Reports as per HPI and Reports anxiety Exam Const: General: cooperative, healthy appearing, comfortable and no acute distress Orientation/consciousness: oriented to person, oriented to place and oriented to time HENMT: Head: normal to inspection Face/Nose/Sinus: Normal nares present Mouth: Yes moist mucous membranes Eyes: General: appearance normal, both eyes and all related structures Sclera: sclerae normal Pupils: Equal, round and reactive pupils present Chest: Chest palpation & inspection: normal inspection of the chest Resp: Effort & Inspection: normal respiratory effort and able to speak in complete sentences Auscultation: clear to auscultation bilate
[2023-09-19] MEDS: MAGNESIUM OXIDE 200 MG TABLET PO (09:00)
[2023-09-19] MEDS: methylPREDNISolone SOD SUCC 40 MG VIAL IV PUSH (09:00)
[2023-09-19] MEDS: NICOTINE (*PBKC) 21 MG PATCH 1 PATCH TRANSDERM (09:00)
[2023-09-19] MEDS: PANTOPRAZOLE 40 MG TABLET PO ×2 (09:00→17:13)
[2023-09-19] MEDS: AMOXICILLIN/CLAVULANATE K 875-125 MG TAB 1 TABLET PO ×2 (09:00→23:53)
[2023-09-19] MEDS: INSULIN ASPART (*BKC) 100 UNITS/ML SUB-Q ×3 (09:00→17:13)
[2023-09-19] MEDS: HYDROcodone/acetaminophen (*CRX) 5-325 MG TABLET 1 TAB PO ×3 (11:48→23:53)
[2023-09-19 11:58] LABS: Glucose Point of Care 375 mg/dl (65-105)
--- NOTE | 2023-09-19 12:37 | PM.IMPN ---
Progress Note: A&P Assessment and Plan (1) Pancolitis: Code(s): K51.00 - Ulcerative (chronic) pancolitis without complications Status: Acute Assessment and Plan: Last colonoscopy 12/07/2021 showed diverticulosis, ulcerative proctitis and internal hemorrhoids. Family Hx of colon cancer ( father dx in his 50's) and gastric cancer ( paternal grandfather). Previously on mesalamine with no response. Patient last seen by GI 09/08 for ulcerative proctitis and discharged with rowasa enemas at bedtime, with plan to obtain colonoscopy in 3-4 weeks and start Humira as outpatient. Patient had not received humira from [facility]. - CT abd/pelvis 09/13: Pancolitis.Mild mesenteric lymphadenopathy, likely reactive. - Stool calprotectin 2260, reordered on 09/18 - GI recommends: Continue antibiotics, Continue steroids while inpatient, Humira induction dose 09/17. - IV fluids - Methylprednisolone 40 mg IV daily -- per GI will do 45 total days of steroids on a taper - started on Zosyn on 09/13 transition to Augmentin 09/17 in the pm - negative for TB and Hep B in 08/2023 - Low fate diet - Analgesics transitioned from Dilaudid to [place] with Dilaudid for breakthrough (2) Diabetes: Code(s): E11.9 - Type 2 diabetes mellitus without complications Status: Acute Assessment and Plan: - hypoglycemia protocol - POC blood glucose ACHS - home medication - Plan on starting Jardiance. Waiting on arrival from [facility]. Managed by PCP. - correct regimen ordered - low dose TIDWM and HS - A1C 09/08/23: 6.0 (3) Bipolar disorder: Code(s): F31.9 - Bipolar disorder, unspecified Status: Acute Assessment and Plan: Continue Depakote 500 mg TID. (4) Pancreatitis: Qualifiers: Chronicity: acute Pancreatitis type: idiopathic Acute pancreatitis complication: unspecified Qualified Code(s): K85.00 - Idiopathic acute pancreatitis without necrosis or infection Code(s): K85.90 - Acute pancreatitis without necrosis or infection, unspecified Status: Acute Assessment and Plan: CT last admission showed acute interstitial pancreatitis. Lipase still elevated but trending down 707-->550-->489 -> 479. Patient admits to bilateral upper abdominal pain that recently seemed to get worse after eating fatty foods. LFT's normal. Pain has improved but not resolved since admission. Patient admits to social alcohol use more on the weekends but has been decreasing alcohol use recently.? - Continue supportive care (5) GERD (gastroesophageal reflux disease): Qualifiers: Esophagitis presence: esophagitis presence not specified Qualified Code(s): K21.9 - Gastro-esophageal reflux disease without esophagitis Code(s): K21.9 - Gastro-esophageal reflux disease without esophagitis Status: Acute Assessment and Plan: Patient admits to reflux that has been well controlled with omeprazole 20 mg BID. Patient has never had an EGD. - Continue PPI - outpatient EGD which we can further discuss during outpatient visit (6) Iron deficiency anemia: Qualifiers: Iron deficiency anemia type: unspecified iron deficiency Qualified Code(s): D50.9 - Iron deficiency anemia, unspecified Code(s): D50.9 - Iron deficiency anemia, unspecified Status: Acute Assessment and Plan: Secondary to GI bleed with ulcerative proctitis. Iron studies showed iron deficiency due to colitis.? He is not taking any oral iron supplement.?Evaluated by Dr. Reeves and will be started on IV iron infusion with plan to follow up in office with repeat blood test and further infusions if needed. Subjective Date/time seen: 09/19/23 12:37 Interval history: Patient is very anxious about going home due to possibility of having recurrent abdominal pain. Discussed with patient that is impossible to predict what could or could not happen when being discharged fro
[2023-09-19] MEDS: ONDANSETRON INJ 4 MG/2 ML VIAL IV PUSH (12:46)
[2023-09-19 13:20] LABS: Glucose Point of Care 395 mg/dl (65-105)
[2023-09-19 14:00] VITALS: BP 95/56; PULSE 73; RESP 18; TEMP 36.3; O2SAT 97
[2023-09-19 16:54] LABS: Glucose Point of Care 327 mg/dl (65-105)
[2023-09-19 19:47] LABS: Glucose Point of Care 382 mg/dl (65-105)
[2023-09-19 20:00] VITALS: BP 101/69; PULSE 55; RESP 18; TEMP 36.2; O2SAT 99
[2023-09-19] MEDS: INSULIN ASPART (*BKC) 100 UNITS/ML 8 UNITS SUB-Q (20:27)
[2023-09-19] MEDS: DIVALPROEX SODIUM ER 500 MG TAB.24H 1500 MG PO (23:53)
[2023-09-19] MEDS: AMITRIPTYLINE HCL 25 MG TABLET PO (23:54)
[2023-09-19] MEDS: FENOFIBRATE 160 MG TABLET PO (23:54)
[2023-09-19] MEDS: traZODone HCL 50 MG TABLET PO (23:54)
[2023-09-20] MEDS: LACTATED RINGERS 1,000 ML 100 ML IV CONT ×2 (03:40→12:41)
[2023-09-20 06:00] VITALS: BP 92/63; PULSE 52; RESP 16; TEMP 36.2; O2SAT 97
[2023-09-20 06:18] LABS: Basophils Absolute Auto 0.1 K/mm3 (0.0-0.1); Basophils Percent Auto 0.9 % (0.2-1.2); Eosinophils Absolute Auto 0.2 K/mm3 (0-0.3); Eosinophils Percent Auto 1.6 % (0-4.4); Hematocrit 29.3 % (42.0-52.0); Hemoglobin 9.4 g/dL (14.0-18.0); Immature Granulocyte Absolute 1.03 K/mm3 (0.00-0.031); Lymphocytes Absolute Auto 4.17 K/mm3 (0.9-3.2); Lymphocytes Percent Auto 36.3 % (18.3-44.2); Mean Corpuscular HGB Conc 32.1 g/dl (32-36); Mean Corpuscular Hemoglobin 29.1 pg (26-34); Mean Corpuscular Volume 90.7 fl (80-100); Mean Platelet Volume 10.8 fl (7.4-10.4); Monocytes Percent Auto 9.1 % (2.6-8.5); Neutrophils Percent Auto 43.1 % (45.5-73.1); Nucleated Red Blood Cells Perc 0.3 % (0.0-0.2); Platelet Count Result 281 k/mm3 (150-375); Red Blood Count 3.23 M/mm3 (4.6-6.20); Red Cell Distribution Width 12.4 % (11.5-14.5); White Blood Count 11.5 K/mm3 (4.5-10.0)
[2023-09-20 06:32] LABS: Alanine Aminotransferase 8 U/L (6-50); Albumin Level 3.2 g/dL (3.5-5.1); Alkaline Phosphatase 39 U/L (38-126); Anion Gap 2 mmol/L (4-12); Aspartate Amino Transferase 12 U/L (17-59); Bilirubin,Total 0.3 mg/dL (0.2-1.3); Blood Urea Nitrogen 10 mg/dL (9-20); Calcium 8.9 mg/dL (8.4-10.2); Carbon Dioxide 33 mmol/L (22-30); Chloride 104 mmol/L (98-107); Estimated CRCL calculation 110 ml/min; Estimated Glomerular Filt Rate > 60; Glucose 224 mg/dL (65-110); Potassium 3.9 mmol/L (3.4-5.0); Sodium 139 mmol/L (137-145)
[2023-09-20] MEDS: HYDROcodone/acetaminophen (*CRX) 5-325 MG TABLET 1 TAB PO (06:35)
[2023-09-20 07:55] LABS: Glucose Point of Care 189 mg/dl (65-105)
[2023-09-20] MEDS: methylPREDNISolone SOD SUCC 40 MG VIAL IV PUSH (09:20)
[2023-09-20] MEDS: AMOXICILLIN/CLAVULANATE K 875-125 MG TAB 1 TABLET PO ×2 (09:20→20:33)
[2023-09-20] MEDS: NICOTINE (*PBKC) 21 MG PATCH 1 PATCH TRANSDERM (09:20)
[2023-09-20] MEDS: MAGNESIUM OXIDE 200 MG TABLET PO (09:20)
[2023-09-20] MEDS: PANTOPRAZOLE 40 MG TABLET PO ×2 (09:20→18:28)
[2023-09-20 11:50] LABS: Glucose Point of Care 339 mg/dl (65-105)
--- NOTE | 2023-09-20 12:20 | PM.IMPN ---
Progress Note: A&P Assessment and Plan (1) Pancolitis: Code(s): K51.00 - Ulcerative (chronic) pancolitis without complications Status: Acute Assessment and Plan: Last colonoscopy 12/07/2021 showed diverticulosis, ulcerative proctitis and internal hemorrhoids. Family Hx of colon cancer ( father dx in his 50's) and gastric cancer ( paternal grandfather). Previously on mesalamine with no response. Patient last seen by GI 09/08 for ulcerative proctitis and discharged with rowasa enemas at bedtime, with plan to obtain colonoscopy in 3-4 weeks and start Humira as outpatient. Patient had not received humira from [facility]. - CT abd/pelvis 09/13: Pancolitis.Mild mesenteric lymphadenopathy, likely reactive. - Stool calprotectin 2260, reordered on 09/18 - GI recommends: Continue antibiotics, Continue steroids while inpatient, Humira induction dose 09/17. - IV fluids - Methylprednisolone 40 mg IV daily -- per GI will do 45 total days of steroids on a taper - started on Zosyn on 09/13 transition to Augmentin 09/17 in the pm -- today is final day of abx therapy - negative for TB and Hep B in 08/2023 - Diabetic Diet. - Analgesics transitioned from Dilaudid to [place] with Dilaudid for breakthrough (2) Diabetes: Code(s): E11.9 - Type 2 diabetes mellitus without complications Status: Acute Assessment and Plan: - hypoglycemia protocol - POC blood glucose ACHS - home medication - Plan on starting Jardiance. Waiting on arrival from [facility]. Managed by PCP. - correct regimen ordered - low dose TIDWM and HS - A1C 09/08/23: 6.0 (3) Bipolar disorder: Code(s): F31.9 - Bipolar disorder, unspecified Status: Acute Assessment and Plan: Continue Depakote 500 mg TID. (4) Pancreatitis: Qualifiers: Acute pancreatitis complication: unspecified Chronicity: acute Pancreatitis type: idiopathic Qualified Code(s): K85.00 - Idiopathic acute pancreatitis without necrosis or infection Code(s): K85.90 - Acute pancreatitis without necrosis or infection, unspecified Status: Acute Assessment and Plan: CT last admission showed acute interstitial pancreatitis. Lipase still elevated but trending down 707-->550-->489 -> 479. Patient admits to bilateral upper abdominal pain that recently seemed to get worse after eating fatty foods. LFT's normal. Pain has improved but not resolved since admission. Patient admits to social alcohol use more on the weekends but has been decreasing alcohol use recently.? - Continue supportive care (5) GERD (gastroesophageal reflux disease): Qualifiers: Esophagitis presence: esophagitis presence not specified Qualified Code(s): K21.9 - Gastro-esophageal reflux disease without esophagitis Code(s): K21.9 - Gastro-esophageal reflux disease without esophagitis Status: Acute Assessment and Plan: Patient admits to reflux that has been well controlled with omeprazole 20 mg BID. Patient has never had an EGD. - Continue PPI - outpatient EGD which we can further discuss during outpatient visit (6) Iron deficiency anemia: Qualifiers: Iron deficiency anemia type: unspecified iron deficiency Qualified Code(s): D50.9 - Iron deficiency anemia, unspecified Code(s): D50.9 - Iron deficiency anemia, unspecified Status: Acute Assessment and Plan: Secondary to GI bleed with ulcerative proctitis. Iron studies showed iron deficiency due to colitis.? He is not taking any oral iron supplement.?Evaluated by Dr. Reeves and will be started on IV iron infusion with plan to follow up in office with repeat blood test and further infusions if needed. Subjective Date/time seen: 09/20/23 12:20 Interval history: Patient complaining of ongoing abdominal pain. Discussed with the patient that he will likely be discharged tomorrow. Patient prefers to stay in the hospital because
[2023-09-20] MEDS: INSULIN ASPART (*BKC) 100 UNITS/ML SUB-Q ×2 (12:37→21:13)
[2023-09-20 14:00] VITALS: BP 108/69; PULSE 78; RESP 22; TEMP 36.2; O2SAT 96
[2023-09-20 14:34] LABS: Soluble Transferrin Receptor 0.77 mg/L (0.76-1.76)
[2023-09-20 17:01] LABS: Glucose Point of Care 490 mg/dl (65-105)
[2023-09-20] MEDS: INSULIN ASPART (*BKC) 100 UNITS/ML 10 UNITS SUB-Q (18:28)
[2023-09-20 20:00] VITALS: PULSE 78; RESP 16; O2SAT 95
[2023-09-20 20:21] VITALS: BP 100/57; RESP 16; TEMP 36.2; O2SAT 95
[2023-09-20] MEDS: traZODone HCL 50 MG TABLET PO (20:33)
[2023-09-20] MEDS: FENOFIBRATE 160 MG TABLET PO (20:33)
[2023-09-20] MEDS: DIVALPROEX SODIUM ER 500 MG TAB.24H 1500 MG PO (20:33)
[2023-09-20] MEDS: AMITRIPTYLINE HCL 25 MG TABLET PO (20:33)
[2023-09-20 20:44] LABS: Glucose Point of Care 344 mg/dl (65-105)
[2023-09-21 00:17] LABS: Methylmalonic Acid 50 nmol/L (87-318)
[2023-09-21] MEDS: LACTATED RINGERS 1,000 ML 100 ML IV CONT (01:13)
[2023-09-21 05:05] VITALS: BP 100/66; PULSE 50; RESP 16; TEMP 36.2; O2SAT 99
[2023-09-21 06:52] LABS: Hemoglobin 10.1 g/dL (14.0-18.0); Mean Corpuscular HGB Conc 31.6 g/dl (32-36); Mean Corpuscular Hemoglobin 28.8 pg (26-34); Mean Corpuscular Volume 91.2 fl (80-100); Mean Platelet Volume 11.2 fl (7.4-10.4); Platelet Count Result 293 k/mm3 (150-375); Red Blood Count 3.51 M/mm3 (4.6-6.20); Red Cell Distribution Width 12.5 % (11.5-14.5); White Blood Count 13.2 K/mm3 (4.5-10.0)
[2023-09-21 07:04] LABS: Anion Gap 5 mmol/L (4-12); Blood Urea Nitrogen 15 mg/dL (9-20); Calcium 9.1 mg/dL (8.4-10.2); Carbon Dioxide 29 mmol/L (22-30); Chloride 104 mmol/L (98-107); Estimated CRCL calculation 125 ml/min; Estimated Glomerular Filt Rate > 60; Glucose 255 mg/dL (65-110); Potassium 3.8 mmol/L (3.4-5.0); Sodium 138 mmol/L (137-145)
[2023-09-21 07:41] LABS: Glucose Point of Care 220 mg/dl (65-105)
[2023-09-21] MEDS: methylPREDNISolone SOD SUCC 40 MG VIAL IV PUSH (08:30)
[2023-09-21] MEDS: INSULIN ASPART (*BKC) 100 UNITS/ML SUB-Q ×2 (08:30→11:58)
[2023-09-21] MEDS: PANTOPRAZOLE 40 MG TABLET PO (08:30)
[2023-09-21] MEDS: NICOTINE (*PBKC) 21 MG PATCH 1 PATCH TRANSDERM (08:30)
[2023-09-21] MEDS: MAGNESIUM OXIDE 200 MG TABLET PO (08:30)
[2023-09-21 11:47] LABS: Glucose Point of Care 398 mg/dl (65-105)
--- NOTE | 2023-09-21 12:14 | PM.DS ---
DS: Admitting Diagnosis Discharge Date 09/21/23 Admitting Diagnosis UC exacerbation DS: Discharge Diagnosis Discharge Diagnosis (1) Pancolitis: Code(s): K51.00 - Ulcerative (chronic) pancolitis without complications Status: Acute Assessment and Plan: Last colonoscopy 12/07/2021 showed diverticulosis, ulcerative proctitis and internal hemorrhoids. Family Hx of colon cancer ( father dx in his 50's) and gastric cancer ( paternal grandfather). Previously on mesalamine with no response. Patient last seen by GI 09/08 for ulcerative proctitis and discharged with rowasa enemas at bedtime, with plan to obtain colonoscopy in 3-4 weeks and start Humira as outpatient. Patient had not received humira from [facility]. - CT abd/pelvis 09/13: Pancolitis.Mild mesenteric lymphadenopathy, likely reactive. - Stool calprotectin 2260, reordered on 09/18 - GI recommends: Continue antibiotics, Continue steroids while inpatient, Humira induction dose 09/17. - IV fluids - Methylprednisolone 40 mg IV daily -- per GI will do 45 total days of steroids on a taper - started on Zosyn on 09/13 transition to Augmentin 09/17 in the pm -- today is final day of abx therapy - negative for TB and Hep B in 08/2023 - Diabetic Diet. - Analgesics transitioned from Dilaudid to [place] with Dilaudid for breakthrough (2) Diabetes: Code(s): E11.9 - Type 2 diabetes mellitus without complications Status: Acute Assessment and Plan: - hypoglycemia protocol - POC blood glucose ACHS - home medication - Plan on starting Jardiance. Waiting on arrival from [facility]. Managed by PCP. - correct regimen ordered - low dose TIDWM and HS - A1C 09/08/23: 6.0 (3) Bipolar disorder: Code(s): F31.9 - Bipolar disorder, unspecified Status: Acute Assessment and Plan: Continue Depakote 500 mg TID. (4) Pancreatitis: Qualifiers: Acute pancreatitis complication: unspecified Chronicity: acute Pancreatitis type: idiopathic Qualified Code(s): K85.00 - Idiopathic acute pancreatitis without necrosis or infection Code(s): K85.90 - Acute pancreatitis without necrosis or infection, unspecified Status: Acute Assessment and Plan: CT last admission showed acute interstitial pancreatitis. Lipase still elevated but trending down 707-->550-->489 -> 479. Patient admits to bilateral upper abdominal pain that recently seemed to get worse after eating fatty foods. LFT's normal. Pain has improved but not resolved since admission. Patient admits to social alcohol use more on the weekends but has been decreasing alcohol use recently.? - Continue supportive care (5) GERD (gastroesophageal reflux disease): Qualifiers: Esophagitis presence: esophagitis presence not specified Qualified Code(s): K21.9 - Gastro-esophageal reflux disease without esophagitis Code(s): K21.9 - Gastro-esophageal reflux disease without esophagitis Status: Acute Assessment and Plan: Patient admits to reflux that has been well controlled with omeprazole 20 mg BID. Patient has never had an EGD. - Continue PPI - outpatient EGD which we can further discuss during outpatient visit (6) Iron deficiency anemia: Qualifiers: Iron deficiency anemia type: unspecified iron deficiency Qualified Code(s): D50.9 - Iron deficiency anemia, unspecified Code(s): D50.9 - Iron deficiency anemia, unspecified Status: Acute Assessment and Plan: Secondary to GI bleed with ulcerative proctitis. Iron studies showed iron deficiency due to colitis.? He is not taking any oral iron supplement.?Evaluated by Dr. Reeves and will be started on IV iron infusion with plan to follow up in office with repeat blood test and further infusions if needed. DS: Summary Hospital Course Hospital Course: This is a 48-year-old male with a past medical history of IBD, diverticulosis, GERD, hyperlip
[2023-09-21 13:54] VITALS: BP 95/57; PULSE 62; RESP 20; TEMP 36.1; O2SAT 100
[2023-09-26 22:17] LABS: Calprotectin, Stool 3280 mcg/g
== END 2023-09-21 15:50 | disposition home or self-care (01) | DRG 385 ==
LOC: ANHED 19:43 → ANH3MEDSUR 09-15 09:52
PROVIDERS: Internal Medicine Critical Care Medicine; Nurse Practitioner Family; Preventive Medicine Aerospace Medicine; Student in an Organized Health Care Education/Training Program; Admitting Provider Internal Medicine; Emergency Provider Physician Assistant; PCP Family Medicine; Visit Provider Hospitalist
DX: K51.018 Ulcerative (chronic) pancolitis with other complication (principal); K85.80 Other acute pancreatitis without necrosis or infection; K92.2 Gastrointestinal hemorrhage, unspecified; D62 Acute posthemorrhagic anemia; E11.9 Type 2 diabetes mellitus without complications; F31.9 Bipolar disorder, unspecified; K21.9 Gastro-esophageal reflux disease without esophagitis; K57.90 Diverticulosis of intestine, part unspecified, without perforation or abscess without bleeding; E78.5 Hyperlipidemia, unspecified; J45.909 Unspecified asthma, uncomplicated; F17.210 Nicotine dependence, cigarettes, uncomplicated; F10.90 Alcohol use, unspecified, uncomplicated; Z80.0 Family history of malignant neoplasm of digestive organs
CPT/HCPCS: 36415; 74177; 80048; 80053; 81001; 82607; 82728; 82746; 82948; 83540; 83550; 83690; 83921; 83993; 84238; 85025; 85027; 96361; 96374; 96375; 99285; A9270; J0500; J0696; J1170; J1756; J1815; J1836; J2405; J2543; J2919; J7030; J7050; J7120; Q9967

== ENCOUNTER 2023-10-17 13:15 | Inpatient (IN) | payer OTHER, SELFPAY ==
[2023-10-17] VITALS (8 sets, daily range): BP systolic 107–142; BP diastolic 64–98; PULSE 69–98; RESP 12–18; TEMP 36.6–37.4; O2SAT 94–99; BMI 22.8
--- NOTE | ~2023-10-17 | CT_ITS ---
EXAMINATION: CT abdomen pelvis w con DATE: 10/17/2023 14:11 INDICATION: Ulcerative colitis. Abdominal pain. Diarrhea. TECHNIQUE: Computed tomography (CT) of the abdomen and pelvis was performed with 100 mL Omnipaque 350 intravenous contrast. Automated exposure control and iterative reconstruction technique were employe d. The dose-length product was 318.19 mGy-cm. COMPARISON: CT abdomen and pelvis 09/14/2023 FINDINGS: The visualized portions of the lung bases are clear without pneumonia or pleural effusion. The heart size is normal. No pericardial effusion. The liver, gallbladder, spleen, pancreas, adrenal glands, and kidneys are normal. The appendix is normal. There is wall thickening throughout the colon with surrounding fat stranding, consistent with colitis. There is mild ileocolic lymphadenopathy, li geoff reactive. There is trace pelvic ascites. There is mild lumbar spondylosis. IMPRESSION: 1. Pancolitis. 2. Mild ileocolic lymphadenopathy, likely reactive. Reviewed, dictated and finalized at location A.
--- NOTE | ~2023-10-17 | CT_ITS ---
EXAMINATION: CTA abdomen pelvis DATE: 10/25/2023 13:12 INDICATION: Worsening abdominal pain in the setting of colitis TECHNIQUE: Computed tomography (CT) of the abdomen and pelvis was performed with 100 CC Omnipaque 350 intravenous contrast. Automated exposure control and iterative reconstruction technique were employe d. Exam dose: 408.92 mGy-cm total exam DLP. COMPARISON: 10/17/2023 CT abdomen pelvis FINDINGS: There is mild atelectasis at the dependent bilateral lower lobes. Normal heart size. No pericardial or pleural effusion. The liver, spleen, pancreas, and adrenal glands and kidneys appear unremarkable. The gallbladder is present. No bile duct or pancreatic duct dilatation. No urinary tract calculus or hydroureteronephrosis is evident. The urinary bladder is unremarkable. Prostate calcifications, mild prostate enlargement. Normal caliber of the abdominal aorta without atherosclerotic calcification or dissection. The celiac , superior mesenteric, renal and inferior mesenteric arteries are patent, wide open. There is atheros clerotic calcification of the right common iliac artery; no atherosclerotic calcification is noted el sewhere in the iliac or included portions of the femoral arteries. No intraperitoneal or retroperitoneal or pelvic mass lesion or adenopathy or ascites. Diffuse pancolitis is again noted no pneumatosis or intraperitoneal free air. Included skeletal structures are unremarkable.. IMPRESSION: Atherosclerotic calcification of the right common iliac artery; otherwise no apical scar calcification of the abdominal aorta and iliac or proximal femoral arteries. Superior mesenteric, in ferior mesenteric, celiac and renal arteries are widely patent without atherosclerotic calcification or stricture. Reviewed, dictated and finalized at Location A. Reviewed, dictated and finalized at location A. IMPRESSION: Atherosclerotic calcification of the right common iliac artery; ot herwise no apical scar calcification of the abdominal aorta and iliac or proxim al femoral arteries. Superior mesenteric, inferior mesenteric, celiac and renal arteries are widely patent without atherosclerotic calcification or stricture.
[2023-10-17 13:49] LABS: Hematocrit 41.5 % (42.0-52.0); Hemoglobin 13.5 g/dL (14.0-18.0); Mean Corpuscular HGB Conc 32.5 g/dl (32-36); Mean Corpuscular Hemoglobin 29.2 pg (26-34); Mean Corpuscular Volume 89.6 fl (80-100); Mean Platelet Volume 9.4 fl (7.4-10.4); Platelet Count Result 304 k/mm3 (150-375); Red Blood Count 4.63 M/mm3 (4.6-6.20); Red Cell Distribution Width 13.6 % (11.5-14.5); White Blood Count 16.7 K/mm3 (4.5-10.0)
[2023-10-17 14:01] LABS: Alanine Aminotransferase 10 U/L (6-50); Albumin Level 3.8 g/dL (3.5-5.1); Alkaline Phosphatase 57 U/L (38-126); Anion Gap 13 mmol/L (4-12); Aspartate Amino Transferase 16 U/L (17-59); Bilirubin,Total 0.6 mg/dL (0.2-1.3); Blood Urea Nitrogen 26 mg/dL (9-20); Calcium 8.6 mg/dL (8.4-10.2); Carbon Dioxide 24 mmol/L (22-30); Chloride 95 mmol/L (98-107); Estimated CRCL calculation 110 ml/min; Estimated Glomerular Filt Rate > 60; Glucose 112 mg/dL (65-110); Lipase 32 U/L (23-300); Sodium 132 mmol/L (137-145)
[2023-10-17 14:05] LABS: Appearance Urine Clear (Clear); Bacteria Urine None Seen /hpf; Bilirubin Urine Negative (Negative); Blood Urine Negative (Negative); Color Urine Dark Yellow (Yellow); Glucose Urine UA 3+ mg/dL (Negative); Ketones Urine 3+ mg/dL (Negative); Leukocyte Esterase Ur Negative LEU/UL (Negative); Nitrate Urine Negative (Negative); Non Pathogenic Casts 0-2; Protein Urine Trace mg/dL (Negative); RBC Urine 0-2 /hpf (0-2); Squamous Epithelial Cell Urine None Seen /hpf (Few); WBC Urine 0-5 /hpf (0-3); pH Urine 5.5 (5.0-9.0)
[2023-10-17 14:09] LABS: Estimated CRCL calculation 110 ml/min; Estimated Glomerular Filt Rate > 60
[2023-10-17 14:10] LABS: Band Neutrophils Percent 5 % (0-6); Eosinophils Percent Manual 3 % (0-4); Monocytes Absolute Manual 2.17 K/mm3 (0.1-0.90); Monocytes Percent Manual 13 % (3-9); Neutrophils Absolute Manual 10.02 K/mm3 (1.3-6.7); Neutrophils Percent Manual 55 % (46-73); Platelet Estimate Adequate (Adequate); Schistocytes None Seen; Total Cells Counted 100
[2023-10-17 14:11] LABS: Add Urine Microscopic? YES; Specific Grav Ur 1.039 (1.001-1.035)
[2023-10-17] MEDS: ONDANSETRON INJ 4 MG/2 ML VIAL IV PUSH (14:18)
[2023-10-17] MEDS: MORPHINE SULFATE (*CRX) 4 MG/ML INJ IV PUSH (14:19)
[2023-10-17] MEDS: SODIUM CHLORIDE 0.9% IV 1,000 ML 999 ML IV CONT (14:19)
[2023-10-17 14:27] LABS: CRP 8.4 mg/dL (<1.0)
[2023-10-17 14:49] LABS: Lactic Acid Reflex 0.8 mmol/L (0.7-2.0)
--- NOTE | 2023-10-17 15:00 | ED.ABDPAIN ---
HPI - Abdominal Pain General Chief Complaint: Abdominal Pain Stated Complaint: UC flair Time Seen by Provider: 10/17/23 13:42 Source: patient Mode of arrival: ambulatory Limitations: no limitations History of Present Illness HPI narrative: 48-year-old with a history of ulcerative colitis here with the complaints of diffuse abdominal pain, nausea, not feeling well for past few days. Patient states that he had 2 doses of Humira and he was unable to get the 3rd dose because of the insurance reason. He denies any fever or chills. Has states he has blood in stool. MD elicited complaint: abdominal pain Pertinent past history: none Onset (ago): week(s) Pain Consistency: constant Location: diffuse Quality: cramping Migration to: no migration Exacerbating factors: nothing Relieving factors: nothing Associated symptoms: denies other symptoms Related Data Home Medications Medication Instructions Recorded Confirmed divalproex 500 mg tablet,extended 1,500 mg PO HS 01/18/21 09/25/23 release 24 hr (Depakote ER) omeprazole 20 mg capsule,delayed 20 mg PO Q12H 02/09/21 09/25/23 release alprazolam 0.25 mg tablet (Xanax) 0.25 mg PO PRN PRN Anxiety 11/22/21 09/25/23 fenofibrate 160 mg tablet 160 mg PO HS 11/22/21 09/25/23 magnesium 200 mg tablet 200 mg PO DAILY 09/14/23 09/25/23 potassium chloride 20 mEq 20 meq PO DAILY 09/14/23 09/25/23 tablet,extended release Adult Probiotic 1 tab-cap PO DIRECTED 09/25/23 09/25/23 L-Methylfolate 1 tab-cap PO DIRECTED 09/25/23 09/25/23 Nicotinamide 1 tab-cap PO DIRECTED 09/25/23 09/25/23 berberine chloride 1 tab-cap PO DIRECTED 09/25/23 09/25/23 multivitamin 1 tablet PO DAILY 09/25/23 09/25/23 simethicone 1 tab-cap PO DIRECTED 09/25/23 09/25/23 Allergies Allergy/AdvReac Type Severity Reaction Status Date / Time No Known Allergies Allergy Verified 10/17/23 13:21 Review of Systems Review of Systems: All systems reviewed & are unremarkable except as noted in HPI and below Constitutional: Constitutional: Reports no additional constitutional complaints Eyes: Eyes: Reports no additional eye complaints ENT: Reports system reviewed and no additional complaints, except as documented Cardiovascular: Cardiovascular: Reports no additional cardiovascular complaints Respiratory: Respiratory: Reports no additional respiratory complaints Gastrointestinal: Gastrointestinal: Reports as per HPI Musculoskeletal: Musculoskeletal: Reports no additional musculoskeletal complaints Neurologic: Reports system reviewed and no additional complaints, except as documented PMFSH Past Medical History Medical History Alcohol use Asthma Bipolar disorder Depression Diabetes Diarrhea Familial hypertriglyceridemia Family history of colon cancer in father GERD (gastroesophageal reflux disease) Hematochezia Iron deficiency anemia Proctitis Surgical History Surgical History H/O excision of mass 02/19/21 Excision 2 cm scalp cyst, Excision 1 cm scalp cyst x4 H/O shoulder surgery History of umbilical hernia repair 25 years ago with mesh Family History Family History Other Cancer Cerebrovascular accident Diabetes mellitus Hypertension Social History Social History Smoking packs per day: 0.5 Smoking cigarettes per day: 10.0 Years smoked: 12 Smoking pack-years: 6.00 Smoking status: Current every day smoker Tobacco type: e-cigarettes/vaping Smokeless tobacco user: chewing tobacco Alcohol intake: current Drinks per week: 3 Alcohol use details: social Substance use: current Substance use type: marijuana Other substance usage details: 1-2x per month Do You Feel Safe in your Home?: Yes Lack of Transportation: No Lack of Food: Never True Current H
[2023-10-17] MEDS: methylPREDNISolone SOD SUCC 40 MG VIAL IV PUSH ×2 (15:20→17:18)
--- NOTE | 2023-10-17 15:46 | PM.IMHP ---
H&P: HPI History of Present Illness Date/Time: 10/17/23 15:46 Chief Complaint: Abdominal Pain, Diarrhea, UC Flare Narrative: 48 y/o M presents here with abdominal pain, diarrhea, and suspected ulcerative colitis flare with PMH of UC, bipolar disorder, depression, diabetes, familial hypertriglyceridemia, GERD, and EVAN. Patient presents here from home a with complaints of diffuse abdominal pain that is accompanied by nausea, general malaise, and diarrhea. Patient describes the abdominal pain as spasm-like, radiating into his lower back, constant, aggravated by pressure to the abdomen, and alleviated by pain meds only. Tried to eat less to reduce pain without resolution of pain. Has been ongoing since Friday (10/12). Patient on Humira for the Ulcerative Colitis, has received 2 doses with the last 1 on 10/01, unable to receive the 3rd dose due to insurance reasons. Has been approved, has not received it yet. Diagnosed with mild UC 2 years ago but has become more severe in the last 2-3 months. Has developed subjective fevers and diaphoresis today. Has chronic/intermittent BRBPR, has seemed mildly worse in the last week. Denying chills or melena. Initial VS at presentation: Na 0.2? F, HR 98, RR 18, 142/98, and 98% on RA. ED workup showed: WBC 16.7, hemoglobin 13.5, sodium 132 creatinine 0.8 and GFR >60, lactic 0.8, CRP 8.4, and UA showed specific gravity of 1.039, 3+ glucose, and 3+ ketones. CT of the abdomen/pelvis showed pancolitis and mild ileocolic lymphedema that is likely reactive. Review of Systems Review of Systems: All systems reviewed & are unremarkable except as noted in HPI and below [facility] Past Medical History Medical History (Updated 10/17/23 @ 16:03 by Allie Eller APRN) Alcohol use Asthma Bipolar disorder Depression Diabetes Diarrhea Familial hypertriglyceridemia Family history of colon cancer in father GERD (gastroesophageal reflux disease) Hematochezia Iron deficiency anemia Pancreatitis Proctitis Ulcerative colitis Surgical History Surgical History H/O excision of mass 02/19/21 Excision 2 cm scalp cyst, Excision 1 cm scalp cyst x4 H/O shoulder surgery History of umbilical hernia repair 25 years ago with mesh Family History Family History Other Cancer Cerebrovascular accident Diabetes mellitus Hypertension Social History Social History Smoking packs per day: 0.5 Smoking cigarettes per day: 10.0 Years smoked: 12 Smoking pack-years: 6.00 Smoking status: Current every day smoker Tobacco type: e-cigarettes/vaping Smokeless tobacco user: chewing tobacco Alcohol intake: never Drinks per week: 3 Alcohol use details: social Substance use: current Substance use type: marijuana Other substance usage details: 1-2x per month Do You Feel Safe in your Home?: Yes Lack of Transportation: No Lack of Food: Never True Current Housing: I Have Housing Concerned About Future Housing: No Difficulty Paying Gas/Electric Bills: Decline to Answer Difficulty Paying for Meds: Decline to Answer Currently Unemployed: Decline to Answer Education: High School Diploma/GED Difficulty w/ Childcare or Family Care: No Living arrangements: with family Additional living arrangements comments: , CHILD, [place] Occupation/Education: occupation 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
--- NOTE | 2023-10-17 15:50 | PC.NURSE ---
This patient, Judson Sena, was admitted to 3 [facility] Surg Room 313-01. Patient/family oriented to hospital policies and general routines including ID bracelet, bed and alarms, visiting hours, pain management, procedures, bathroom and other care routines, personal items, smoking policy, room service/diet, and visiting hours. Information on how to activate the Rapid Response Team has been discussed. Patient/Family are encouraged to report perceived risks to care and to ask questions if they do not understand what they are told or what they should do.
[2023-10-17] MEDS: HYDROmorphone HCL INJ (*CRX) 1 MG/ML SYR 0.5 MG IV PUSH ×2 (17:18→22:04)
[2023-10-17 17:19] LABS: Glucose Point of Care 100 mg/dl (65-105)
[2023-10-17] MEDS: SODIUM CHLORIDE 0.9% IV 1,000 ML 125 ML IV CONT (17:25)
[2023-10-17] MEDS: PIPERACILLN/TAZ 3.375GM/NS50ML 3.375 GM/50 ML BAG IVPB ×2 (17:25→22:04)
[2023-10-17] MEDS: ACETAMINOPHEN 325 MG TABLET 650 MG PO (17:50)
[2023-10-17 20:31] LABS: Glucose Point of Care 193 mg/dl (65-105)
[2023-10-17] MEDS: DIVALPROEX SODIUM ER 500 MG TAB.24H 1500 MG PO (20:58)
[2023-10-17] MEDS: MAGNESIUM OXIDE 200 MG TABLET PO (20:58)
[2023-10-17] MEDS: FENOFIBRATE 160 MG TABLET PO (20:58)
[2023-10-17] MEDS: SIMETHICONE 125 MG CHEW TAB PO (20:58)
[2023-10-18] MEDS: HYDROmorphone HCL INJ (*CRX) 1 MG/ML SYR 0.5 MG IV PUSH ×4 (01:13→13:45)
[2023-10-18] MEDS: SODIUM CHLORIDE 0.9% IV 1,000 ML 125 ML IV CONT ×3 (01:17→20:01)
[2023-10-18] MEDS: PIPERACILLN/TAZ 3.375GM/NS50ML 3.375 GM/50 ML BAG IVPB ×4 (04:20→22:03)
[2023-10-18] MEDS: ONDANSETRON INJ 4 MG/2 ML VIAL IV PUSH ×4 (04:23→21:45)
[2023-10-18 06:00] VITALS: BP 112/78; PULSE 65; RESP 16; TEMP 36.5; O2SAT 99
[2023-10-18 07:02] LABS: Hematocrit 36.5 % (42.0-52.0); Hemoglobin 11.8 g/dL (14.0-18.0); Mean Corpuscular HGB Conc 32.3 g/dl (32-36); Mean Corpuscular Hemoglobin 29.6 pg (26-34); Mean Corpuscular Volume 91.5 fl (80-100); Mean Platelet Volume 9.8 fl (7.4-10.4); Platelet Count Result 273 k/mm3 (150-375); Red Blood Count 3.99 M/mm3 (4.6-6.20); Red Cell Distribution Width 13.5 % (11.5-14.5)
[2023-10-18 07:10] LABS: Anion Gap 6 mmol/L (4-12); Blood Urea Nitrogen 17 mg/dL (9-20); Calcium 8.3 mg/dL (8.4-10.2); Carbon Dioxide 28 mmol/L (22-30); Chloride 100 mmol/L (98-107); Estimated CRCL calculation 108 ml/min; Estimated Glomerular Filt Rate > 60; Glucose 143 mg/dL (65-110); Potassium 4.1 mmol/L (3.4-5.0); Sodium 134 mmol/L (137-145)
[2023-10-18 07:28] LABS: Glucose Point of Care 142 mg/dl (65-105)
[2023-10-18 08:24] LABS: Band Neutrophils Percent 8 % (0-6); Lymphocytes Absolute Manual 3.04 K/mm3 (1.1-4.5); Lymphocytes Percent Manual 16 % (18-44); Metamyelocytes Percent 2 %; Monocytes Absolute Manual 0.76 K/mm3 (0.1-0.90); Monocytes Percent Manual 4 % (3-9); Neutrophils Absolute Manual 14.82 K/mm3 (1.3-6.7); Neutrophils Percent Manual 70 % (46-73)
[2023-10-18 08:30] LABS: Platelet Estimate Adequate (Adequate); Schistocytes None Seen
[2023-10-18] MEDS: PANTOPRAZOLE 40 MG TABLET PO (10:11)
[2023-10-18] MEDS: NICOTINE (*PBKC) 21 MG PATCH 1 PATCH TRANSDERM (10:11)
[2023-10-18] MEDS: POTASSIUM CHLORIDE 20 MEQ ER TABLET PO (10:12)
[2023-10-18] MEDS: MULTIVITAMINS THERAPEUTIC TAB (*BKC) 1 TABLET PO (10:12)
[2023-10-18] MEDS: EMPAGLIFLOZIN 10 MG TABLET PO (10:12)
[2023-10-18] MEDS: methylPREDNISolone SOD SUCC 40 MG VIAL IV PUSH ×2 (10:12→18:11)
[2023-10-18 11:39] LABS: Glucose Point of Care 182 mg/dl (65-105)
--- NOTE | 2023-10-18 13:35 | WPDGICN ---
Assessment and Plan Assessment and plan (1) Ulcerative colitis: Qualifiers: Ulcerative colitis location: ulcerative pancolitis Digestive disease complication type: without complication Qualified Code(s): K51.00 - Ulcerative (chronic) pancolitis without complications Code(s): K51.90 - Ulcerative colitis, unspecified, without complications Status: Acute Assessment and Plan: hoping that humira biosimilar gets accepted demetrio and he can get third dose of induction, then should get every 2 weeks will get TPMT activity and may need imuran another option if continues to be symptomatic with humira is to switch to rinvoq or stelara in the meantime iv steroids, antibiotics, will get stool for c diff (2) Pancolitis: Code(s): K51.00 - Ulcerative (chronic) pancolitis without complications Status: Acute Assessment and Plan: uc flare get stool for c diff (3) Diarrhea: Qualifiers: Diarrhea type: unspecified type Qualified Code(s): R19.7 - Diarrhea, unspecified Code(s): R19.7 - Diarrhea, unspecified Status: Acute (4) Exocrine pancreatic insufficiency: Code(s): K86.81 - Exocrine pancreatic insufficiency Status: Acute Assessment and Plan: new diagnosis, also previous pancreatitis and DM will start creon (5) Chronic anemia: Code(s): D64.9 - Anemia, unspecified Status: Acute GI Consult Note Consult date/time: 10/18/23 13:35 Reason for consult: UC flare, abdominal pain, diarrhea HPI: Judson Sena is a 48 year old male h/o DM, diagnosed with ulcerative proctitis 2021, used mesalamine briefly without improvement. Back then I suggested to use biologic such as humira but he was reluctant about it and never came back.?Recent hospitalizations with uc flare and pancreatitis (stool elastase <15), finally started on humira with induction dose- received second dose and was supposed to receive third dose last but has been having issue with insurance and biosimilar of humira approval still pending, after last hospitalization sent home with slow steroid taper, he had period of time when was feeling much better but last 4 days again with worsening abdominal pain, more diarrhea and blood in stools. Finally called office and advised to come back to hospital. WBC 19k, hgb 11. CT scan reviewed, pancolitis. Started on iv solumedrol, antibiotic and pain meds. Review of Systems Constitutional: Constitutional: Reports lethargy Eyes: Eyes: Denies blurry vision ENT: Reports Normal hearing present Cardiovascular: Cardiovascular: Denies chest pain, Denies leg edema and Denies palpitations Respiratory: Respiratory: Reports no additional respiratory complaints, Denies cough, Denies hemoptysis and Denies dyspnea Gastrointestinal: Gastrointestinal: Reports abdominal pain, Reports hematochezia, Reports diarrhea and Reports nausea Genitourinary: Genitourinary: Denies hematuria Musculoskeletal: Musculoskeletal: Denies stiffness Integumentary/Breasts: Skin/Breast: Denies rash Neurologic: Denies Abnormal speech present Psychiatric: Psychiatric: Reports anxiety and Denies behavioral changes [facility] Past Medical History Medical History (Updated 10/18/23 @ 13:41 by Dewey Alexis MD) Alcohol use Asthma Bipolar disorder Chronic anemia Depression Diabetes Diarrhea Exocrine pancreatic insufficiency Familial hypertriglyceridemia Family history of colon cancer in father GERD (gastroesophageal reflux disease) Hematochezia Iron deficiency anemia Pancreatitis Proctitis Ulcerative colitis Surgical History Surgical History H/O excision of mass 02/19/21 Excision 2 cm scalp cyst, Excision 1 cm scalp cyst x4 H/O shoulder surgery History of umbilical hernia repair 25 years ago with mesh Family History Family History Other
[2023-10-18 13:38] VITALS: BMI 22.8
[2023-10-18 14:00] VITALS: BP 107/67; PULSE 62; RESP 14; TEMP 36.5; O2SAT 99
--- NOTE | 2023-10-18 15:59 | PM.IMPN ---
Progress Note: A&P Assessment and Plan (1) Pancolitis: Code(s): K51.00 - Ulcerative (chronic) pancolitis without complications Status: Acute Assessment and Plan: - Hx of ulcerative colitis - last seen by GI in August of 2023 during last admission at [facility] for similar presentation/CT findings - CT abd/pelvis: 1. Pancolitis. 2. Mild ileocolic lymphadenopathy, likely reactive. - Zosyn started on 10/16 - pain control: TYL, [place], Dilaudid for breakthrough pain. - Continue IV Solu-Medrol (2) Diabetes: Code(s): E11.9 - Type 2 diabetes mellitus without complications Status: Acute Assessment and Plan: - hypoglycemia protocol - POC blood glucose ACHS - home medication: continue Jardiance - correct regimen ordered - low dose TIDWM - A1C 6% on 09/08/2023 Subjective Date/time seen: 10/18/23 15:59 Interval history: 48-YEAR-OLD GENTLEMAN ADMITTED FOR ULCERATIVE COLITIS EXACERBATION. Still having 5-6 bloody stools per day. Intermittent abdominal cramping from suprapubic to both flanks and epigastric. Sometimes severe. Less so than yesterday however. Denied nausea vomiting or chest pain or shortness of breath. Is having headaches with his abdominal cramping and sleep deprivation. These are mild to moderate and generalized. Affect on vision. No weakness or numbness. No dizziness. Review of Systems Review of Systems: All systems reviewed & are unremarkable except as noted in HPI and below Exam Narrative: HEENT: PERRL, sclerae nonicteric, pharyngeal mucosa pink and intact NECK: No JVD, adenopathy, or thyromegaly CHEST: Clear to auscultation. Normal effort. HEART: NL S1/S2, regular, no murmur ABDOMEN: BS+, soft, TENDER HYPOGASTRIC TO LEFT LOWER QUADRANT, no mass, no bruits EXTREMITIES: No cyanosis, edema, or clubbing NEUROLOGIC: CN intact and symmetric to inspection. MUSCULOSKELETAL: Tone and strength symmetric. PSYCH: Alert. Oriented to person, place, and time. Objective Data Vital Signs Vital Signs: Vital Signs - 24 hr 10/17/23 17:30 10/17/23 20:00 10/17/23 20:52 Temperature 97.8 F 97.8 F Pulse Rate 69 Respiratory Rate 18 Blood Pressure 107/64 Pulse Oximetry 99 97 Oxygen Delivery Room Air 10/17/23 22:00 10/18/23 06:00 10/18/23 10:00 Temperature 97.8 F 97.7 F Pulse Rate 69 65 Respiratory Rate 18 16 Blood Pressure 107/64 112/78 Pulse Oximetry 97 99 Oxygen Delivery Room Air 10/18/23 14:00 Temperature 97.7 F Pulse Rate 62 Respiratory Rate 14 Blood Pressure 107/67 Pulse Oximetry 99 Oxygen Delivery Intake/Output Intake/Output: Intake & Output 10/15/23 10/16/23 10/17/23 10/18/23 23:59 23:59 23:59 23:59 Intake Total 1770 2803.3 Balance 1770 2803.3 Meds/Results Medications: Active Medications Generic Name Dose Route Start Last Admin Trade Name Freq PRN Reason Stop Dose Admin Acetaminophen 650 mg 10/17/23 16:34 10/17/23 17:50 Acetaminophen 325 Mg Tablet PO 650 mg Q4H PRN Administration Mild Pain (1-3) or Fever Hydrocodone Bitart/Acetaminophen 1 tab 10/17/23 16:34 Hydrocodone/Acetaminophen (*Crx) 5-325 Mg Tablet PO Q4H PRN Pain Rated 4-6 Lipase/Protease/Amylase 1 cap 10/18/23 17:00 Lipase/Amylase/Protease 12,000 Units Cap PO TIDWM GRETA Dextrose 12.5 gm 10/17/23 16:50 Dextrose 50% 25 Gm/50 Ml Syringe IV PUSH PRN PRN Hypoglycemia Protocol Divalproex Sodium 1,500 mg 10/17/23 21:00 10/17/23 20:58 Divalproex Sodium Er 500 Mg Tab.24h PO 1,500 mg HS GRETA Administration Empagliflozin 10 mg 10/18/23 09:00 10/18/23 10:12 Empagliflozin 10 Mg Tablet PO 10 mg DAILY GRETA Administration Fenofibrate 160 mg 10/17/23 21:00 10/17/23 20:58 Fenofibrate 160 Mg Tablet PO 160 mg HS GRETA Administration Glucagon 1 mg 10/17/23 16:50 Glucagon For Inj 1 Mg Vial IM PRN PRN Hypoglycemia Protocol Glucose 15 gm 10/16
[2023-10-18] MEDS: LIPASE/AMYLASE/PROTEASE 12,000 UNITS CAP 1 CAP PO (18:03)
[2023-10-18] MEDS: HYDROmorphone HCL INJ (*CRX) 1 MG/ML SYR IV PUSH ×2 (18:04→21:28)
[2023-10-18 19:40] LABS: Glucose Point of Care 261 mg/dl (65-105)
[2023-10-18] MEDS: SIMETHICONE 125 MG CHEW TAB PO (21:28)
[2023-10-18] MEDS: DIVALPROEX SODIUM ER 500 MG TAB.24H 1500 MG PO (21:28)
[2023-10-18] MEDS: MAGNESIUM OXIDE 200 MG TABLET PO (21:28)
[2023-10-18] MEDS: FENOFIBRATE 160 MG TABLET PO (21:28)
[2023-10-18 22:00] VITALS: BP 113/81; PULSE 70; TEMP 36.9; O2SAT 96
[2023-10-19] MEDS: ZOLPIDEM TARTRATE (*CRX) 5 MG TABLET PO (00:40)
[2023-10-19 02:34] LABS: Toxigenic C. Diff POSITIVE (NEGATIVE)
[2023-10-19] MEDS: HYDROmorphone HCL INJ (*CRX) 1 MG/ML SYR IV PUSH ×5 (03:05→19:01)
[2023-10-19] MEDS: ONDANSETRON INJ 4 MG/2 ML VIAL IV PUSH ×3 (03:05→19:06)
[2023-10-19 06:00] VITALS: BP 109/74; PULSE 63; RESP 18; TEMP 37.1; O2SAT 97
[2023-10-19] MEDS: VANCOMYCIN HCL 125 MG ORAL CAPSULE PO (06:05)
[2023-10-19 06:26] LABS: Hematocrit 38.3 % (42.0-52.0); Hemoglobin 11.9 g/dL (14.0-18.0); Mean Corpuscular HGB Conc 31.1 g/dl (32-36); Mean Corpuscular Hemoglobin 29.1 pg (26-34); Mean Corpuscular Volume 93.6 fl (80-100); Mean Platelet Volume 10.5 fl (7.4-10.4); Platelet Count Result 348 k/mm3 (150-375); Red Blood Count 4.09 M/mm3 (4.6-6.20); Red Cell Distribution Width 13.6 % (11.5-14.5); White Blood Count 16.8 K/mm3 (4.5-10.0)
[2023-10-19 06:29] LABS: Iron 26 ug/dL (49-181)
[2023-10-19 06:34] LABS: Anion Gap 7 mmol/L (4-12); Blood Urea Nitrogen 12 mg/dL (9-20); CRP 8.1 mg/dL (<1.0); Calcium 8.7 mg/dL (8.4-10.2); Carbon Dioxide 28 mmol/L (22-30); Chloride 102 mmol/L (98-107); Estimated CRCL calculation 108 ml/min; Estimated Glomerular Filt Rate > 60; Glucose 101 mg/dL (65-110); Potassium 3.7 mmol/L (3.4-5.0); Sodium 137 mmol/L (137-145)
[2023-10-19 06:38] LABS: Percent Iron Saturation 10 % (20-50)
[2023-10-19 08:00] LABS: Glucose Point of Care 105 mg/dl (65-105)
[2023-10-19] MEDS: MULTIVITAMINS THERAPEUTIC TAB (*BKC) 1 TABLET PO (08:36)
[2023-10-19] MEDS: POTASSIUM CHLORIDE 20 MEQ ER TABLET PO (08:36)
[2023-10-19] MEDS: LIPASE/AMYLASE/PROTEASE 12,000 UNITS CAP 1 CAP PO ×3 (08:37→16:20)
[2023-10-19] MEDS: PANTOPRAZOLE 40 MG TABLET PO (08:37)
[2023-10-19] MEDS: EMPAGLIFLOZIN 10 MG TABLET PO (08:37)
[2023-10-19] MEDS: HYDROcodone/acetaminophen (*CRX) 5-325 MG TABLET 1 TAB PO ×4 (08:38→21:26)
[2023-10-19] MEDS: IRON SUCROSE COMPLEX 300 MG in SODIUM CHLORIDE 0.9% IV 250 ML 177 MG IVPB (08:44)
[2023-10-19] MEDS: methylPREDNISolone SOD SUCC 40 MG VIAL IV PUSH ×2 (08:47→20:11)
[2023-10-19] MEDS: NICOTINE (*PBKC) 21 MG PATCH 1 PATCH TRANSDERM (08:47)
[2023-10-19] MEDS: FIDAXOMICIN 200 MG TABLET PO ×2 (08:47→21:27)
--- NOTE | 2023-10-19 11:02 | PM.IMPN ---
Progress Note: A&P Assessment and Plan (1) Pancolitis: Code(s): K51.00 - Ulcerative (chronic) pancolitis without complications Status: Acute Assessment and Plan: - Hx of ulcerative colitis - last seen by GI in August of 2023 during last admission at [facility] for similar presentation/CT findings - CT abd/pelvis: 1. Pancolitis. 2. Mild ileocolic lymphadenopathy, likely reactive. - Zosyn started on 10/16, stopped 10/17 PM due to stool POSITIVE for c diff - pain control: TYL, [place], Dilaudid for breakthrough pain. - Continue IV Solu-Medrol - 10/18 added Dificid BID for c diff colitis (2) Diabetes: Code(s): E11.9 - Type 2 diabetes mellitus without complications Status: Acute Assessment and Plan: - hypoglycemia protocol - POC blood glucose ACHS - home medication: continue Jardiance - correct regimen ordered - low dose TIDWM - A1C 6% on 09/08/2023 Subjective Date/time seen: 10/19/23 11:02 Interval history: Ambien ordered by nighttime cross coverage. Caused hallucinations both visual and auditory. Feels exhausted this. Still as 5 bloody bowel movements every shift. Associated with severe abdominal cramping and pain. Discussed new diagnosis of C colitis along with his ulcerative colitis. Denied chest pain or shortness of breath. Does feel lightheaded and dizzy when he gets out of bed. Aware that he has iron deficiency currently receiving IV iron and tolerating well. Exam Narrative: HEENT: PERRL, sclerae nonicteric, pharyngeal mucosa pink and intact NECK: No JVD, adenopathy, or thyromegaly CHEST: Clear to auscultation. Normal effort. HEART: NL S1/S2, regular, no murmur ABDOMEN: BS+, soft, DIFFUSELY TENDER, no mass, no bruits EXTREMITIES: No cyanosis, edema, or clubbing NEUROLOGIC: CN intact and symmetric to inspection. MUSCULOSKELETAL: Tone and strength symmetric. PSYCH: Alert. Oriented to person, place, and time. Objective Data Vital Signs Vital Signs: Vital Signs - 24 hr 10/18/23 14:00 10/18/23 22:00 10/19/23 06:00 Temperature 97.7 F 98.4 F 98.7 F Pulse Rate 62 70 63 Respiratory Rate 14 18 Blood Pressure 107/67 113/81 109/74 Pulse Oximetry 99 96 97 Intake/Output Intake/Output: Intake & Output 10/16/23 10/17/23 10/18/23 10/19/23 23:59 23:59 23:59 23:59 Intake Total 1770 4771.3 1337 Balance 1770 4771.3 1337 Meds/Results Medications: Active Medications Generic Name Dose Route Start Last Admin Trade Name Freq PRN Reason Stop Dose Admin Acetaminophen 650 mg 10/17/23 16:34 10/17/23 17:50 Acetaminophen 325 Mg Tablet PO 650 mg Q4H PRN Administration Mild Pain (1-3) or Fever Hydrocodone Bitart/Acetaminophen 1 tab 10/17/23 16:34 10/19/23 08:38 Hydrocodone/Acetaminophen (*Crx) 5-325 Mg Tablet PO 1 tab Q4H PRN Administration Pain Rated 4-6 Lipase/Protease/Amylase 1 cap 10/18/23 17:00 10/19/23 08:37 Lipase/Amylase/Protease 12,000 Units Cap PO 1 cap TIDWM GRETA Administration Dextrose 12.5 gm 10/17/23 16:50 Dextrose 50% 25 Gm/50 Ml Syringe IV PUSH PRN PRN Hypoglycemia Protocol Divalproex Sodium 1,500 mg 10/17/23 21:00 10/18/23 21:28 Divalproex Sodium Er 500 Mg Tab.24h PO 1,500 mg HS GRETA Administration Empagliflozin 10 mg 10/18/23 09:00 10/19/23 08:37 Empagliflozin 10 Mg Tablet PO 10 mg DAILY GRETA Administration Fenofibrate 160 mg 10/17/23 21:00 10/18/23 21:28 Fenofibrate 160 Mg Tablet PO 160 mg HS GRETA Administration Fidaxomicin 200 mg 10/19/23 09:00 10/19/23 08:47 Fidaxomicin 200 Mg Tablet PO 200 mg Q12HR GRETA Administration Glucagon 1 mg 10/17/23 16:50 Glucagon For Inj 1 Mg Vial IM PRN PRN Hypoglycemia Protocol Glucose 15 gm 10/17/23 16:50 Glucose Oral Gel 15 Gm Of Glucse In 37.5 Gm Tube PO PRN PRN Hypoglycemia Protocol Hydromorphone HCl 1 mg 10/18/23 16:03 10/19/23 10:07 Hydromorphone
--- NOTE | 2023-10-19 11:38 | WPDGIPROGNO ---
Progress Note: A&P Assessment and Plan (1) C. difficile colitis: Code(s): A04.72 - Enterocolitis due to Clostridium difficile, not specified as recurrent Status: Acute Assessment and Plan: new diagnosis, started on dificid and other systemic abx discontinued (2) Ulcerative colitis: Qualifiers: Ulcerative colitis location: ulcerative pancolitis Digestive disease complication type: without complication Qualified Code(s): K51.00 - Ulcerative (chronic) pancolitis without complications Code(s): K51.90 - Ulcerative colitis, unspecified, without complications Status: Acute Assessment and Plan: humira biosimilar at home (waiting for his insurance to approved 3rd dose of induction and then he can continue with maintenance). (3) Abdominal pain: Qualifiers: Abdominal location: generalized Qualified Code(s): R10.84 - Generalized abdominal pain Code(s): R10.9 - Unspecified abdominal pain Status: Acute (4) Exocrine pancreatic insufficiency: Code(s): K86.81 - Exocrine pancreatic insufficiency Status: Acute Assessment and Plan: low elastase in stool last time started on pancreatic enzymes previous h/o pancreatitis (5) Chronic anemia: Code(s): D64.9 - Anemia, unspecified Status: Acute Assessment and Plan: iv iron probably due to uncontrolled UC Subjective Date/time seen: 10/19/23 11:38 Interval history: + C diff, still with abdominal discomfort but better today, also diarrhea Review of Systems Review of Systems: All systems reviewed & are unremarkable except as noted in HPI and below Exam Const: General: no acute distress HENMT: Face/Nose/Sinus: Normal nares present Mouth: Yes moist mucous membranes Eyes: General: appearance normal, both eyes and all related structures Neck: Neck: supple Resp: Effort & Inspection: normal respiratory effort Auscultation: clear to auscultation bilaterally Cardio: Rate: regular rate Rhythm: regular rhythm GI: GI Palp: Yes Soft to palpation and Yes Tenderness to palpation present (GI) (diffuse tenderness, no rebound) Auscultation: normal bowel sounds Skin: General skin exam: normal color and no rashes or lesions noted Neuro: Speech: normal speech Motor exam (neuro): 5/5 motor strength present throughout Sensory Exam: normal sensation Other: A&O x4 Extrem: General: normal to inspection Psych: Mental Status: mental status grossly normal Affect: Sad affect present and Anxious affect present Objective Data Vital Signs Vital Signs: Vital Signs - 24 hr 10/18/23 14:00 10/18/23 22:00 10/19/23 06:00 Temperature 97.7 F 98.4 F 98.7 F Pulse Rate 62 70 63 Respiratory Rate 14 18 Blood Pressure 107/67 113/81 109/74 Pulse Oximetry 99 96 97 Intake/Output Intake/Output: Intake & Output 10/16/23 10/17/23 10/18/23 10/19/23 23:59 23:59 23:59 23:59 Intake Total 1770 4771.3 1337 Balance 1770 4771.3 1337 Meds/Results Medications: Active Medications Generic Name Dose Route Start Last Admin Trade Name Freq PRN Reason Stop Dose Admin Acetaminophen 650 mg 10/17/23 16:34 10/17/23 17:50 Acetaminophen 325 Mg Tablet PO 650 mg Q4H PRN Administration Mild Pain (1-3) or Fever Hydrocodone Bitart/Acetaminophen 1 tab 10/17/23 16:34 10/19/23 08:38 Hydrocodone/Acetaminophen (*Crx) 5-325 Mg Tablet PO 1 tab Q4H PRN Administration Pain Rated 4-6 Lipase/Protease/Amylase 1 cap 10/18/23 17:00 10/19/23 08:37 Lipase/Amylase/Protease 12,000 Units Cap PO 1 cap TIDWM GRETA Administration Dextrose 12.5 gm 10/17/23 16:50 Dextrose 50% 25 Gm/50 Ml Syringe IV PUSH PRN PRN Hypoglycemia Protocol Divalproex Sodium 1,500 mg 10/17/23 21:00 10/18/23 21:28 Divalproex Sodium Er 500 Mg Tab.24h PO 1,500 mg HS GRETA Administration Empagliflozin 10 mg 10/18/23 09:00 10/19/23 08:37 Empagliflozin 10 Mg Tabl
[2023-10-19 12:43] LABS: Glucose Point of Care 244 mg/dl (65-105)
[2023-10-19 14:00] VITALS: BP 102/65; PULSE 73; RESP 14; TEMP 36.1; O2SAT 95
[2023-10-19] MEDS: SODIUM CHLORIDE 0.9% IV 1,000 ML 125 ML IV CONT ×2 (14:00→21:34)
[2023-10-19 16:40] LABS: Glucose Point of Care 181 mg/dl (65-105)
[2023-10-19 21:18] LABS: Glucose Point of Care 122 mg/dl (65-105)
[2023-10-19] MEDS: MELATONIN 5 MG TABLET 10 MG PO (21:26)
[2023-10-19] MEDS: MAGNESIUM OXIDE 200 MG TABLET PO (21:26)
[2023-10-19] MEDS: FENOFIBRATE 160 MG TABLET PO (21:27)
[2023-10-19] MEDS: DIVALPROEX SODIUM ER 500 MG TAB.24H 1500 MG PO (21:27)
[2023-10-19] MEDS: SIMETHICONE 125 MG CHEW TAB PO (21:27)
[2023-10-19 22:00] VITALS: BP 104/78; PULSE 66; RESP 16; TEMP 36.6; O2SAT 98
[2023-10-20] MEDS: HYDROmorphone HCL INJ (*CRX) 1 MG/ML SYR IV PUSH ×5 (00:54→22:02)
[2023-10-20] MEDS: HYDROcodone/acetaminophen (*CRX) 5-325 MG TABLET 1 TAB PO ×4 (05:23→20:39)
[2023-10-20 05:57] VITALS: BP 107/81; PULSE 63; RESP 16; TEMP 36.6; O2SAT 99
[2023-10-20 06:41] LABS: Hematocrit 32.6 % (42.0-52.0); Hemoglobin 10.3 g/dL (14.0-18.0); Mean Corpuscular HGB Conc 31.6 g/dl (32-36); Mean Corpuscular Hemoglobin 29.4 pg (26-34); Mean Corpuscular Volume 93.1 fl (80-100); Mean Platelet Volume 9.6 fl (7.4-10.4); Platelet Count Result 279 k/mm3 (150-375); Red Cell Distribution Width 13.9 % (11.5-14.5)
[2023-10-20 07:17] LABS: Anion Gap 5 mmol/L (4-12); Blood Urea Nitrogen 11 mg/dL (9-20); Calcium 8.2 mg/dL (8.4-10.2); Carbon Dioxide 28 mmol/L (22-30); Chloride 100 mmol/L (98-107); Estimated CRCL calculation 122 ml/min; Estimated Glomerular Filt Rate > 60; Glucose 190 mg/dL (65-110); Potassium 3.9 mmol/L (3.4-5.0); Sodium 133 mmol/L (137-145)
[2023-10-20 07:27] LABS: CRP 15.5 mg/dL (<1.0)
[2023-10-20 07:55] LABS: Glucose Point of Care 142 mg/dl (65-105)
[2023-10-20] MEDS: POTASSIUM CHLORIDE 20 MEQ ER TABLET PO (08:05)
[2023-10-20] MEDS: PANTOPRAZOLE 40 MG TABLET PO (08:05)
[2023-10-20] MEDS: MULTIVITAMINS THERAPEUTIC TAB (*BKC) 1 TABLET PO (08:05)
[2023-10-20] MEDS: FIDAXOMICIN 200 MG TABLET PO ×2 (08:05→20:27)
[2023-10-20] MEDS: LIPASE/AMYLASE/PROTEASE 12,000 UNITS CAP 1 CAP PO ×3 (08:05→16:27)
[2023-10-20] MEDS: EMPAGLIFLOZIN 10 MG TABLET PO (08:05)
[2023-10-20] MEDS: SODIUM CHLORIDE 0.9% IV 1,000 ML 125 ML IV CONT ×2 (08:06→16:33)
[2023-10-20] MEDS: methylPREDNISolone SOD SUCC 40 MG VIAL IV PUSH ×2 (08:19→16:28)
[2023-10-20] MEDS: NICOTINE (*PBKC) 21 MG PATCH 1 PATCH TRANSDERM (08:19)
[2023-10-20 11:21] LABS: Glucose Point of Care 201 mg/dl (65-105)
[2023-10-20] MEDS: INSULIN ASPART (*BKC) 100 UNITS/ML SUB-Q (11:27)
[2023-10-20 14:00] VITALS: BP 113/69; PULSE 71; RESP 18; TEMP 36.5; O2SAT 98
--- NOTE | 2023-10-20 14:00 | PM.IMPN ---
Progress Note: A&P Assessment and Plan (1) Pancolitis: Code(s): K51.00 - Ulcerative (chronic) pancolitis without complications Status: Acute Assessment and Plan: - Hx of ulcerative colitis - last seen by GI in August of 2023 during last admission at [facility] for similar presentation/CT findings - CT abd/pelvis: 1. Pancolitis. 2. Mild ileocolic lymphadenopathy, likely reactive. - Zosyn started on 10/16, stopped 10/17 PM due to stool POSITIVE for c diff - pain control: TYL, [place], Dilaudid for breakthrough pain. - Continue IV Solu-Medrol - 10/18 added Dificid BID for c diff colitis (2) Diabetes: Code(s): E11.9 - Type 2 diabetes mellitus without complications Status: Acute Assessment and Plan: - hypoglycemia protocol - POC blood glucose ACHS - home medication: continue Jardiance - correct regimen ordered - low dose TIDWM - A1C 6% on 09/08/2023 (3) C. difficile colitis: Code(s): A04.72 - Enterocolitis due to Clostridium difficile, not specified as recurrent Status: Acute Assessment and Plan: first episode, started on dificid and other systemic abx discontinued (4) Ulcerative colitis: Qualifiers: Digestive disease complication type: without complication Ulcerative colitis location: ulcerative pancolitis Qualified Code(s): K51.00 - Ulcerative (chronic) pancolitis without complications Code(s): K51.90 - Ulcerative colitis, unspecified, without complications Status: Acute Assessment and Plan: humira biosimilar at home (waiting for his insurance to approve 3rd dose of induction and then he can continue with maintenance)- GI will check with office tomorrow -continue IV steroids Solu-Medrol 40 mg twice daily (5) Abdominal pain: Qualifiers: Abdominal location: generalized Qualified Code(s): R10.84 - Generalized abdominal pain Code(s): R10.9 - Unspecified abdominal pain Status: Acute Assessment and Plan: still having issues (6) Exocrine pancreatic insufficiency: Code(s): K86.81 - Exocrine pancreatic insufficiency Status: Acute Assessment and Plan: low elastase in stool last time started on pancreatic enzymes previous h/o pancreatitis (7) Chronic anemia: Code(s): D64.9 - Anemia, unspecified Status: Acute Assessment and Plan: iv iron probably due to uncontrolled UC Time Spent With Patient Time with patient: Greater than 35 minutes Subjective Date/time seen: 10/20/23 14:00 Interval history: 48-year-old male abdominal pain diarrhea CT imaging showing [place] colitis history ulcerative colitis and new diagnosis C diff. Patient still having pain control issues asking nursing staff about medical marijuana. White blood cell count 19, H&H stable with chronic anemia, Dificid for C diff. gastroenterology believes white blood cell count may be elevating concomitantly due to IV steroid and not treatment failure. CRP also noted to elevate above 15 and sodium level slightly decrease back to 133. Will trend labs and obtain procalcitonin, blood cultures and lactic acid with morning labs. Patient reports whole pills are coming out stool undigested. Patient reports severe stabbing pain with every bowel movement and reports he is still having 8-15 diarrhea stools daily with no improvement yet. Discussed crushing Dificid and pain meds for better absorption and patient is agreeable. Review of Systems Review of Systems: All systems reviewed & are unremarkable except as noted in HPI and below Exam Narrative: HEENT: PERRL, sclerae nonicteric, pharyngeal mucosa pink and intact NECK: No JVD, adenopathy, or thyromegaly CHEST: Clear to auscultation. Normal effort. HEART: NL S1/S2, regular, no murmur ABDOMEN: BS+, soft, generalized tenderness, no mass, no bruits EXTREMITIES: No cyanosis, edema, or clubbing NEUROLOGIC: CN intact and symmetric to inspection. MUSCULOSKELETAL: To
--- NOTE | 2023-10-20 15:01 | WPDGIPROGNO ---
Progress Note: A&P Assessment and Plan (1) C. difficile colitis: Code(s): A04.72 - Enterocolitis due to Clostridium difficile, not specified as recurrent Status: Acute Assessment and Plan: first episode, started on dificid and other systemic abx discontinued (2) Ulcerative colitis: Qualifiers: Ulcerative colitis location: ulcerative pancolitis Digestive disease complication type: without complication Qualified Code(s): K51.00 - Ulcerative (chronic) pancolitis without complications Code(s): K51.90 - Ulcerative colitis, unspecified, without complications Status: Acute Assessment and Plan: humira biosimilar at home (waiting for his insurance to approve 3rd dose of induction and then he can continue with maintenance)- will check with office tomorrow (3) Abdominal pain: Qualifiers: Abdominal location: generalized Qualified Code(s): R10.84 - Generalized abdominal pain Code(s): R10.9 - Unspecified abdominal pain Status: Acute Assessment and Plan: still having issues (4) Exocrine pancreatic insufficiency: Code(s): K86.81 - Exocrine pancreatic insufficiency Status: Acute Assessment and Plan: low elastase in stool last time started on pancreatic enzymes previous h/o pancreatitis (5) Chronic anemia: Code(s): D64.9 - Anemia, unspecified Status: Acute Assessment and Plan: iv iron probably due to uncontrolled UC Subjective Date/time seen: 10/20/23 15:01 Interval history: diarrhea and pain overall improved but still have moments when he feels quite uncomfortable, he is resting and feeling ok now Review of Systems Review of Systems: All systems reviewed & are unremarkable except as noted in HPI and below Exam Const: General: no acute distress HENMT: Face/Nose/Sinus: Normal nares present Mouth: Yes moist mucous membranes Eyes: General: appearance normal, both eyes and all related structures Neck: Neck: supple Resp: Effort & Inspection: normal respiratory effort Auscultation: clear to auscultation bilaterally Cardio: Rate: regular rate Rhythm: regular rhythm GI: GI Palp: Yes Soft to palpation and Yes Tenderness to palpation present (GI) (diffuse tenderness, no rebound) Auscultation: normal bowel sounds Skin: General skin exam: normal color and no rashes or lesions noted Neuro: Speech: normal speech Motor exam (neuro): 5/5 motor strength present throughout Sensory Exam: normal sensation Other: A&O x4 Extrem: General: normal to inspection Psych: Mental Status: mental status grossly normal Affect: Sad affect present and Anxious affect present Objective Data Vital Signs Vital Signs: Vital Signs - 24 hr 10/19/23 22:00 10/20/23 05:57 10/20/23 14:00 Temperature 97.9 F 98 F 97.7 F Pulse Rate 66 63 71 Respiratory Rate 16 16 18 Blood Pressure 104/78 107/81 113/69 Pulse Oximetry 98 99 98 Intake/Output Intake/Output: Intake & Output 10/17/23 10/18/23 10/19/23 10/20/23 23:59 23:59 23:59 23:59 Intake Total 1770 4771.3 4946.8 2149 Balance 1770 4771.3 4946.8 2149 Meds/Results Medications: Active Medications Generic Name Dose Route Start Last Admin Trade Name Freq PRN Reason Stop Dose Admin Acetaminophen 650 mg 10/17/23 16:34 10/17/23 17:50 Acetaminophen 325 Mg Tablet PO 650 mg Q4H PRN Administration Mild Pain (1-3) or Fever Hydrocodone Bitart/Acetaminophen 1 tab 10/17/23 16:34 10/20/23 11:26 Hydrocodone/Acetaminophen (*Crx) 5-325 Mg Tablet PO 1 tab Q4H PRN Administration Pain Rated 4-6 Lipase/Protease/Amylase 1 cap 10/18/23 17:00 10/20/23 11:27 Lipase/Amylase/Protease 12,000 Units Cap PO 1 cap TIDWM GRETA Administration Dextrose 12.5 gm 10/17/23 16:50 Dextrose 50% 25 Gm/50 Ml Syringe IV PUSH PRN PRN Hypoglycemia Protocol Divalproex Sodium 1,500 mg 10/17/23 21:00 10/19/23 21:27 Divalproex Sod
[2023-10-20 16:23] LABS: Glucose Point of Care 159 mg/dl (65-105)
[2023-10-20] MEDS: LOPERAMIDE HCL 2 MG CAPSULE 4 MG PO (17:46)
[2023-10-20] MEDS: VANCOMYCIN HCL 125 MG ORAL CAPSULE 250 MG PO (17:46)
[2023-10-20 20:26] VITALS: BP 106/62; PULSE 58; RESP 16; TEMP 36.4; O2SAT 98
[2023-10-20] MEDS: DIVALPROEX SODIUM ER 500 MG TAB.24H 1500 MG PO (20:26)
[2023-10-20] MEDS: SIMETHICONE 125 MG CHEW TAB PO (20:27)
[2023-10-20] MEDS: MELATONIN 5 MG TABLET 10 MG PO (20:27)
[2023-10-20] MEDS: FENOFIBRATE 160 MG TABLET PO (20:27)
[2023-10-20] MEDS: MAGNESIUM OXIDE 200 MG TABLET PO (20:31)
[2023-10-20 20:37] LABS: Glucose Point of Care 159 mg/dl (65-105)
[2023-10-21] MEDS: VANCOMYCIN HCL 125 MG ORAL CAPSULE 250 MG PO ×2 (00:19→06:11)
[2023-10-21] MEDS: SODIUM CHLORIDE 0.9% IV 1,000 ML 125 ML IV CONT ×4 (00:19→23:22)
[2023-10-21] MEDS: HYDROcodone/acetaminophen (*CRX) 5-325 MG TABLET 1 TAB PO ×2 (00:36→06:11)
[2023-10-21] MEDS: HYDROmorphone HCL INJ (*CRX) 1 MG/ML SYR IV PUSH ×7 (02:42→23:22)
[2023-10-21] MEDS: ONDANSETRON INJ 4 MG/2 ML VIAL IV PUSH ×2 (02:44→20:55)
[2023-10-21 04:21] VITALS: BP 103/64; PULSE 73; RESP 16; TEMP 36.3; O2SAT 95
[2023-10-21 06:36] LABS: Hematocrit 37.8 % (42.0-52.0); Hemoglobin 11.9 g/dL (14.0-18.0); Mean Corpuscular HGB Conc 31.5 g/dl (32-36); Mean Corpuscular Hemoglobin 29.2 pg (26-34); Mean Corpuscular Volume 92.6 fl (80-100); Mean Platelet Volume 9.7 fl (7.4-10.4); Platelet Count Result 350 k/mm3 (150-375); Red Blood Count 4.08 M/mm3 (4.6-6.20); White Blood Count 20.8 K/mm3 (4.5-10.0)
[2023-10-21 06:45] LABS: Lactic Acid Reflex 1.1 mmol/L (0.7-2.0)
[2023-10-21 06:48] LABS: Anion Gap 6 mmol/L (4-12); Blood Urea Nitrogen 14 mg/dL (9-20); Calcium 8.9 mg/dL (8.4-10.2); Carbon Dioxide 31 mmol/L (22-30); Chloride 98 mmol/L (98-107); Estimated CRCL calculation 108 ml/min; Estimated Glomerular Filt Rate > 60; Glucose 175 mg/dL (65-110); Potassium 3.8 mmol/L (3.4-5.0); Sodium 135 mmol/L (137-145)
[2023-10-21 07:33] LABS: Procalcitonin 0.1 ng/mL
--- NOTE | 2023-10-21 07:41 | PM.IMPN ---
Progress Note: A&P Assessment and Plan (1) Pancolitis: Code(s): K51.00 - Ulcerative (chronic) pancolitis without complications Status: Acute Assessment and Plan: - Hx of ulcerative colitis - last seen by GI in August of 2023 during last admission at [facility] for similar presentation/CT findings - CT abd/pelvis: 1. Pancolitis. 2. Mild ileocolic lymphadenopathy, likely reactive. - Zosyn started on 10/16, stopped 10/17 PM due to stool POSITIVE for c diff - pain control: TYL, [place], Dilaudid for breakthrough pain. - Continue IV Solu-Medrol - 10/18 added Dificid BID for c diff colitis 10/20: Began crushing tablets yesterday evening as patient reports that whole pills were coming out with bowel movements Added oral vancomycin yesterday evening as well. Single dose of loperamide given yesterday to slow diarrheal stools Patient complaining continued inadequate pain control. Stopped [place] and changed to oxycodone with Dilaudid for breakthrough only. (2) Diabetes: Code(s): E11.9 - Type 2 diabetes mellitus without complications Status: Acute Assessment and Plan: - hypoglycemia protocol - POC blood glucose ACHS - home medication: continue Jardiance - correct regimen ordered - low dose TIDWM - A1C 6% on 09/08/2023 (3) C. difficile colitis: Code(s): A04.72 - Enterocolitis due to Clostridium difficile, not specified as recurrent Status: Acute Assessment and Plan: first episode, started on dificid and other systemic abx discontinued 10/20: Continued rising white blood cell count, severe pain and frequent stools. Added oral vancomycin and crushing Dificid to help absorb better. May be rising with steroid use as well? (4) Ulcerative colitis: Qualifiers: Digestive disease complication type: without complication Ulcerative colitis location: ulcerative pancolitis Qualified Code(s): K51.00 - Ulcerative (chronic) pancolitis without complications Code(s): K51.90 - Ulcerative colitis, unspecified, without complications Status: Acute Assessment and Plan: humira biosimilar at home (waiting for his insurance to approve 3rd dose of induction and then he can continue with maintenance)- GI will check with office tomorrow -continue IV steroids Solu-Medrol 40 mg twice daily 10/20: No scope at this time per GI (5) Abdominal pain: Qualifiers: Abdominal location: generalized Qualified Code(s): R10.84 - Generalized abdominal pain Code(s): R10.9 - Unspecified abdominal pain Status: Acute Assessment and Plan: still having issues See above (6) Exocrine pancreatic insufficiency: Code(s): K86.81 - Exocrine pancreatic insufficiency Status: Acute Assessment and Plan: low elastase in stool last time started on pancreatic enzymes previous h/o pancreatitis (7) Chronic anemia: Code(s): D64.9 - Anemia, unspecified Status: Acute Assessment and Plan: iv iron probably due to uncontrolled UC 10/20: Iron level 26, percent saturation 10, additional IV iron ordered Hemoglobin 11.9 with a.m. labs Time Spent With Patient Time with patient: Greater than 35 minutes Subjective Date/time seen: 10/21/23 07:41 Interval history: WBC 20.8 today. Started crushing meds for better absorption as yesterday patient reports whole pills were seen in diarrhea. Patient complains of inadequate pain control especially with oral [place]. Cancel [place] and order oxycodone. Single dose of loperamide yesterday to try to slow down frequency of BM without stopping them which would increase risk of toxic megacolon. May consider repeating once today if needed. Oral vancomycin added to regimen yesterday as well. With WBC still climbing patient is not ready for discharge yet. Ordered additional IV iron as well due to low levels and low percent saturation. Review of Systems Review of Systems: All systems reviewed &
[2023-10-21 08:00] LABS: Glucose Point of Care 140 mg/dl (65-105)
[2023-10-21] MEDS: methylPREDNISolone SOD SUCC 40 MG VIAL IV PUSH (08:10)
[2023-10-21] MEDS: PANTOPRAZOLE 40 MG TABLET PO (08:19)
[2023-10-21] MEDS: FIDAXOMICIN 200 MG TABLET PO ×2 (08:19→20:22)
[2023-10-21] MEDS: POTASSIUM CHLORIDE 20 MEQ ER TABLET PO (08:19)
[2023-10-21] MEDS: MULTIVITAMINS THERAPEUTIC TAB (*BKC) 1 TABLET PO (08:19)
[2023-10-21] MEDS: LIPASE/AMYLASE/PROTEASE 12,000 UNITS CAP 1 CAP PO ×3 (08:19→17:03)
[2023-10-21] MEDS: NICOTINE (*PBKC) 21 MG PATCH 1 PATCH TRANSDERM (08:19)
[2023-10-21] MEDS: EMPAGLIFLOZIN 10 MG TABLET PO (08:19)
[2023-10-21 11:21] LABS: Glucose Point of Care 169 mg/dl (65-105)
[2023-10-21] MEDS: VANCOMYCIN HCL 250 MG ORAL CAPSULE PO ×2 (11:30→17:03)
[2023-10-21] MEDS: IRON SUCROSE COMPLEX 500 MG in SODIUM CHLORIDE 0.9% IV 250 ML 79 MG IVPB (13:09)
[2023-10-21] MEDS: SACCHAROMYCES BOULARDII 250 MG CAPSULE PO ×2 (13:09→17:03)
--- NOTE | 2023-10-21 13:43 | WPDGIPROGNO ---
Progress Note: A&P Assessment and Plan (1) C. difficile colitis: Code(s): A04.72 - Enterocolitis due to Clostridium difficile, not specified as recurrent Status: Acute Assessment and Plan: first episode, started on dificid and other systemic abx discontinued cpr and calprotectin elevated- this is from UC and also C diff (2) Ulcerative colitis: Qualifiers: Ulcerative colitis location: ulcerative pancolitis Digestive disease complication type: without complication Qualified Code(s): K51.00 - Ulcerative (chronic) pancolitis without complications Code(s): K51.90 - Ulcerative colitis, unspecified, without complications Status: Acute Assessment and Plan: humira biosimilar at home- I just heard that insurance approved refill- hoping that once he can leave the hospital he can resume humira he is also on steroid, decrease to once daily (3) Abdominal pain: Qualifiers: Abdominal location: generalized Qualified Code(s): R10.84 - Generalized abdominal pain Code(s): R10.9 - Unspecified abdominal pain Status: Acute Assessment and Plan: still having issues (4) Exocrine pancreatic insufficiency: Code(s): K86.81 - Exocrine pancreatic insufficiency Status: Acute Assessment and Plan: low elastase in stool last time started on pancreatic enzymes previous h/o pancreatitis (5) Chronic anemia: Code(s): D64.9 - Anemia, unspecified Status: Acute Assessment and Plan: iv iron probably due to uncontrolled UC Subjective Date/time seen: 10/21/23 13:43 Interval history: no major changes, pain is mostly when he is having BM Review of Systems Review of Systems: All systems reviewed & are unremarkable except as noted in HPI and below Exam Const: General: no acute distress HENMT: Face/Nose/Sinus: Normal nares present Mouth: Yes moist mucous membranes Eyes: General: appearance normal, both eyes and all related structures Neck: Neck: supple Resp: Effort & Inspection: normal respiratory effort Auscultation: clear to auscultation bilaterally Cardio: Rate: regular rate Rhythm: regular rhythm GI: GI Palp: Yes Soft to palpation and Yes Tenderness to palpation present (GI) (less tender) Auscultation: normal bowel sounds Skin: General skin exam: normal color and no rashes or lesions noted Neuro: Speech: normal speech Motor exam (neuro): 5/5 motor strength present throughout Sensory Exam: normal sensation Other: A&O x4 Extrem: General: normal to inspection Psych: Mental Status: mental status grossly normal Affect: Sad affect present and Anxious affect present Objective Data Vital Signs Vital Signs: Vital Signs - 24 hr 10/20/23 14:00 10/20/23 20:26 10/21/23 04:21 Temperature 97.7 F 97.5 F L 97.3 F L Pulse Rate 71 58 L 73 Respiratory Rate 18 16 16 Blood Pressure 113/69 106/62 103/64 Pulse Oximetry 98 98 95 Oxygen Delivery 10/21/23 08:10 Temperature Pulse Rate Respiratory Rate Blood Pressure Pulse Oximetry Oxygen Delivery Room Air Intake/Output Intake/Output: Intake & Output 10/18/23 10/19/23 10/20/23 10/21/23 23:59 23:59 23:59 23:59 Intake Total 4771.3 4946.8 4868 2313.2 Balance 4771.3 4946.8 4868 2313.2 Meds/Results Medications: Active Medications Generic Name Dose Route Start Last Admin Trade Name Freq PRN Reason Stop Dose Admin Acetaminophen 650 mg 10/17/23 16:34 10/17/23 17:50 Acetaminophen 325 Mg Tablet PO 650 mg Q4H PRN Administration Mild Pain (1-3) or Fever Lipase/Protease/Amylase 1 cap 10/18/23 17:00 10/21/23 11:30 Lipase/Amylase/Protease 12,000 Units Cap PO 1 cap TIDWM GRETA Administration Dextrose 12.5 gm 10/17/23 16:50 Dextrose 50% 25 Gm/50 Ml Syringe IV PUSH PRN PRN Hypoglycemia Protocol Divalproex Sodium 1,500 mg 10/17/23 21:00 10/20/23 20:26 Divalproex Sodium Er 500 Mg Tab.24h PO 1,500
[2023-10-21 14:00] VITALS: BP 102/66; PULSE 76; RESP 18; TEMP 36.5; O2SAT 96
[2023-10-21 16:23] LABS: Glucose Point of Care 267 mg/dl (65-105)
[2023-10-21] MEDS: INSULIN ASPART (*BKC) 100 UNITS/ML SUB-Q (17:03)
[2023-10-21 20:00] VITALS: O2SAT 97
[2023-10-21] MEDS: DIVALPROEX SODIUM ER 500 MG TAB.24H 1500 MG PO (20:21)
[2023-10-21] MEDS: SIMETHICONE 125 MG CHEW TAB PO (20:22)
[2023-10-21] MEDS: FENOFIBRATE 160 MG TABLET PO (20:22)
[2023-10-21] MEDS: MELATONIN 5 MG TABLET 10 MG PO (20:22)
[2023-10-21] MEDS: MAGNESIUM OXIDE 200 MG TABLET PO (20:22)
[2023-10-21 21:11] LABS: Glucose Point of Care 98 mg/dl (65-105)
[2023-10-21 22:00] VITALS: BP 109/70; PULSE 70; RESP 16; TEMP 36.8; O2SAT 97
[2023-10-21] MEDS: VANCOMYCIN ORAL 125 MG/2.5 ML SYRUP 250 MG PO (23:45)
[2023-10-22] MEDS: HYDROmorphone HCL INJ (*CRX) 1 MG/ML SYR IV PUSH ×6 (03:16→22:11)
[2023-10-22] MEDS: ONDANSETRON INJ 4 MG/2 ML VIAL IV PUSH ×3 (03:16→14:08)
[2023-10-22 05:26] VITALS: BP 108/67; PULSE 90; RESP 16; TEMP 36.8; O2SAT 96
[2023-10-22] MEDS: VANCOMYCIN ORAL 125 MG/2.5 ML SYRUP 250 MG PO ×2 (05:49→12:21)
[2023-10-22 06:20] LABS: Hematocrit 34.9 % (42.0-52.0); Mean Corpuscular HGB Conc 31.5 g/dl (32-36); Mean Corpuscular Hemoglobin 29.1 pg (26-34); Mean Corpuscular Volume 92.3 fl (80-100); Mean Platelet Volume 9.7 fl (7.4-10.4); Platelet Count Result 359 k/mm3 (150-375); Red Blood Count 3.78 M/mm3 (4.6-6.20); White Blood Count 28.3 K/mm3 (4.5-10.0)
[2023-10-22 06:44] LABS: Anion Gap 5 mmol/L (4-12); Blood Urea Nitrogen 12 mg/dL (9-20); CRP 13.3 mg/dL (<1.0); Calcium 8.3 mg/dL (8.4-10.2); Carbon Dioxide 27 mmol/L (22-30); Chloride 100 mmol/L (98-107); Estimated CRCL calculation 122 ml/min; Estimated Glomerular Filt Rate > 60; Glucose 109 mg/dL (65-110); Potassium 4.2 mmol/L (3.4-5.0); Sodium 132 mmol/L (137-145)
[2023-10-22 07:47] LABS: Glucose Point of Care 108 mg/dl (65-105)
[2023-10-22] MEDS: NICOTINE (*PBKC) 21 MG PATCH 1 PATCH TRANSDERM (08:54)
[2023-10-22] MEDS: FIDAXOMICIN 200 MG TABLET PO (08:55)
[2023-10-22] MEDS: POTASSIUM CHLORIDE 20 MEQ PACKET (FOR LIQUID) PO (08:55)
[2023-10-22] MEDS: LANSOPRAZOLE ODT 30 MG TAB.RAP.DR PO (08:55)
[2023-10-22] MEDS: LIPASE/AMYLASE/PROTEASE 12,000 UNITS CAP 1 CAP PO ×3 (08:55→16:42)
[2023-10-22] MEDS: EMPAGLIFLOZIN 10 MG TABLET PO (08:55)
[2023-10-22] MEDS: SACCHAROMYCES BOULARDII 250 MG CAPSULE PO ×3 (08:55→16:42)
[2023-10-22] MEDS: MULTIVIT W/ IRON, MINERALS 15 ML LIQUID (*BKC) PO (08:56)
[2023-10-22] MEDS: methylPREDNISolone SOD SUCC 40 MG VIAL IV PUSH (08:56)
[2023-10-22 11:37] LABS: Glucose Point of Care 152 mg/dl (65-105)
[2023-10-22] MEDS: SODIUM CHLORIDE 0.9% IV 1,000 ML 125 ML IV CONT ×3 (12:21→22:16)
[2023-10-22 14:00] VITALS: BP 99/57; PULSE 71; RESP 14; TEMP 36.1; O2SAT 95
--- NOTE | 2023-10-22 14:07 | PM.IMPN ---
Progress Note: A&P Assessment and Plan (1) Pancolitis: Code(s): K51.00 - Ulcerative (chronic) pancolitis without complications Status: Acute Assessment and Plan: - Hx of ulcerative colitis - last seen by GI in August of 2023 during last admission at [facility] for similar presentation/CT findings - CT abd/pelvis: 1. Pancolitis. 2. Mild ileocolic lymphadenopathy, likely reactive. - Zosyn started on 10/16, stopped 10/17 PM due to stool POSITIVE for c diff - pain control: TYL, [place], Dilaudid for breakthrough pain. - Continue IV Solu-Medrol - 10/18 added Dificid BID for c-diff colitis 10/20: Began crushing tablets yesterday evening as patient reports that whole pills were coming out with bowel movements Added oral vancomycin yesterday evening as well. Single dose of loperamide given yesterday to slow diarrheal stools Patient complaining continued inadequate pain control. Stopped [place] and changed to oxycodone with Dilaudid for breakthrough only. 10/21: Case discussed with ID pharmacist. Will discontinue Dificid as it likely is not being absorbed Adding IV flagyl given increasing white count Oxycodone was added yesterday but patient had not received a dose yet. I spoke with him about trying the oxycodone and using Dilaudid for breakthrough only. Adding Bentyl (2) Diabetes: Code(s): E11.9 - Type 2 diabetes mellitus without complications Status: Acute Assessment and Plan: - hypoglycemia protocol - POC blood glucose ACHS - home medication: continue Jardiance - correct regimen ordered - low dose TIDWM - A1C 6% on 09/08/202310/21: labs reviewed. (3) C. difficile colitis: Code(s): A04.72 - Enterocolitis due to Clostridium difficile, not specified as recurrent Status: Acute Assessment and Plan: first episode, started on dificid and other systemic abx discontinued 10/20: Continued rising white blood cell count, severe pain and frequent stools. Added oral vancomycin and crushing Dificid to help absorb better. May be rising with steroid use as well? 10/21: See plan 1 (4) Ulcerative colitis: Qualifiers: Ulcerative colitis location: ulcerative pancolitis Digestive disease complication type: without complication Qualified Code(s): K51.00 - Ulcerative (chronic) pancolitis without complications Code(s): K51.90 - Ulcerative colitis, unspecified, without complications Status: Acute Assessment and Plan: humira biosimilar at home (waiting for his insurance to approve 3rd dose of induction and then he can continue with maintenance)- GI will check with office tomorrow -continue IV steroids Solu-Medrol 40 mg twice daily 10/20: No scope at this time per GI 10/21: See plan 1 (5) Abdominal pain: Qualifiers: Abdominal location: generalized Qualified Code(s): R10.84 - Generalized abdominal pain Code(s): R10.9 - Unspecified abdominal pain Status: Acute Assessment and Plan: still having issues See above See above 1 (6) Exocrine pancreatic insufficiency: Code(s): K86.81 - Exocrine pancreatic insufficiency Status: Acute Assessment and Plan: low elastase in stool last time started on pancreatic enzymes previous h/o pancreatitis (7) Chronic anemia: Code(s): D64.9 - Anemia, unspecified Status: Acute Assessment and Plan: iv iron probably due to uncontrolled UC 10/20: Iron level 26, percent saturation 10, additional IV iron ordered Hemoglobin 11.9 with a.m. labs 10/21: Having bloody stool but no dizziness, shortness of breath. Continue daily H/H. Plan Feeding:bland, low fiber diet with ensure Analgesia: tylenol, oxycodone, dilaudid, bentyl Thromboembolic prophylaxis: SCD Ulcer prophylaxis: protonix Glycemic control: SSI low dose Bowel regimen: n/a Lines: PIV Antibiotics: oral vancomycin and IV flagyl Disposition: Home when medically ready Subje
[2023-10-22] MEDS: metroNIDAZOLE 500 MG/ISO 100ML 500 MG/100 ML BAG 100 MG IVPB ×2 (14:08→21:13)
[2023-10-22] MEDS: oxyCODONE HCL (*CRX) 5 MG TAB IR 10 MG PO ×2 (14:11→19:42)
--- NOTE | 2023-10-22 15:45 | WPDGIPROGNO ---
Progress Note: A&P Assessment and Plan (1) C. difficile colitis: Code(s): A04.72 - Enterocolitis due to Clostridium difficile, not specified as recurrent Status: Acute Assessment and Plan: first episode, started on dificid and other systemic abx discontinued but still with frequent stools and noted that he was passing mos of the capsules- it seems that was not absorbing dificid discussed with primary and ID pharmacist- agree with iv flagyl, liquid vancomycin also noted worsening leukocytosis (steroid dose reduced)- will ask surgery to be on standby in case worsens (2) Ulcerative colitis: Qualifiers: Ulcerative colitis location: ulcerative pancolitis Digestive disease complication type: without complication Qualified Code(s): K51.00 - Ulcerative (chronic) pancolitis without complications Code(s): K51.90 - Ulcerative colitis, unspecified, without complications Status: Acute Assessment and Plan: humira biosimilar at home- hoping that once he can leave the hospital he can resume humira, now complicated with c diff dose of steroids was decreased (3) Abdominal pain: Qualifiers: Abdominal location: generalized Qualified Code(s): R10.84 - Generalized abdominal pain Code(s): R10.9 - Unspecified abdominal pain Status: Acute Assessment and Plan: ask surgery to evaluate (4) Exocrine pancreatic insufficiency: Code(s): K86.81 - Exocrine pancreatic insufficiency Status: Acute Assessment and Plan: low elastase in stool last time started on pancreatic enzymes previous h/o pancreatitis (5) Chronic anemia: Code(s): D64.9 - Anemia, unspecified Status: Acute Assessment and Plan: iv iron probably due to uncontrolled UC Subjective Date/time seen: 10/22/23 15:45 Interval history: yesterday with more severe abdominal pain and more frequent diarrhea, he was quite uncomfortable, today better also he was passing with his stools some of the medications- probably has not been absorbing dificid Review of Systems Review of Systems: All systems reviewed & are unremarkable except as noted in HPI and below Exam Const: General: no acute distress Other: earlier uncomfortable because of pain HENMT: Face/Nose/Sinus: Normal nares present Mouth: Yes moist mucous membranes Eyes: General: appearance normal, both eyes and all related structures Neck: Neck: supple Resp: Effort & Inspection: normal respiratory effort Auscultation: clear to auscultation bilaterally Cardio: Rate: regular rate Rhythm: regular rhythm GI: Inspection: distended GI Palp: Yes Soft to palpation and Yes Tenderness to palpation present (GI) (diffuse tenderness, more than yesterday but no rebound) Auscultation: abnormal bowel sounds Skin: General skin exam: normal color and no rashes or lesions noted Neuro: Speech: normal speech Motor exam (neuro): 5/5 motor strength present throughout Sensory Exam: normal sensation Other: A&O x4 Extrem: General: normal to inspection Psych: Mental Status: mental status grossly normal Affect: Anxious affect present Objective Data Vital Signs Vital Signs: Vital Signs - 24 hr 10/21/23 22:00 10/21/23 20:00 10/22/23 05:26 Temperature 98.2 F 98.2 F Pulse Rate 70 90 Respiratory Rate 16 16 Blood Pressure 109/70 108/67 Pulse Oximetry 97 97 96 Oxygen Delivery Room Air 10/22/23 14:00 Temperature 97.0 F L Pulse Rate 71 Respiratory Rate 14 Blood Pressure 99/57 L Pulse Oximetry 95 Oxygen Delivery Intake/Output Intake/Output: Intake & Output 10/19/23 10/20/23 10/21/23 10/22/23 23:59 23:59 23:59 23:59 Intake Total 4946.8 4868 5514.0 1709.2 Output Total 12 Balance 4946.8 4868 5514.0 1697.2 Meds/Results Medications: Active Medications Generic Name Dose Route Start Last Admin Trade Name Freq PRN Reason Stop Dose Admin Acetaminophen 650 mg 10/21/23 20:35 Ren
[2023-10-22] MEDS: VANCOMYCIN ORAL 500 MG/10 ML SYRUP PO ×2 (16:41→23:59)
[2023-10-22] MEDS: DICYCLOMINE HCL 10 MG CAPSULE 20 MG PO ×2 (16:42→21:09)
[2023-10-22 17:07] LABS: Glucose Point of Care 120 mg/dl (65-105)
[2023-10-22 20:32] LABS: Glucose Point of Care 135 mg/dl (65-105)
--- NOTE | 2023-10-22 20:44 | PM.CNGS ---
Assessment and Plan Assessment and plan (1) Pancolitis: Code(s): K51.00 - Ulcerative (chronic) pancolitis without complications Status: Acute (2) C. difficile colitis: Code(s): A04.72 - Enterocolitis due to Clostridium difficile, not specified as recurrent Status: Acute (3) Ulcerative colitis: Qualifiers: Ulcerative colitis location: ulcerative pancolitis Digestive disease complication type: without complication Qualified Code(s): K51.00 - Ulcerative (chronic) pancolitis without complications Code(s): K51.90 - Ulcerative colitis, unspecified, without complications Status: Chronic Plan Pancolitis due to a combination of ulcerative colitis and C. Diff colitis. Patient having persistent diarrhea and WBC up to 28K today. This is his third admission in 6 weeks due to colitis. He is requiring regular doses of hydromorphone for abdominal pain. He has a hx of noncompliance for outpatient treatment of his UC prior to the recent hospitalizations. He does not have toxic megacolon at present and no peritonitis. It seems he is very unlikely to avoid total abdominal colectomy, which he very much wants to avoid. I explained what this entails and that a partial colectomy will not be adequate. Even with a total abdominal colectomy and ileostomy for the acute colitis and sepsis, he would then later need proctectomy which we do not perform here. Proctectomy would be needed to remove all involved ulcerative proctitis as it does carry a risk of malignancy as well as persistent symptoms. I will discuss with Dr. Montes to coordinate our plans of care or possibly transfer. Thank you for asking me to see this patient in consultation. I will follow along with you. History of Present Illness Consult details Consult date: 10/22/23 Reason for consult: other (pancolitis) Requesting physician: Dewey Alexis MD Narrative: Patient is a 48 yo man with hx of distal colon/rectum ulcerative colitis. He has been generally noncompliant with outpatient medical therapy. He was admitted for colitis and acute pancreatitis on 09/07/23. Pancreatitis likely due to alcohol. He went home but returned in only a few days with recurrent colitis including bloody stools, severe abdominal pain. Pancreatitis had or was resolving. He did better for awhile after this admission but was readmitted a third time on 10/17/23. No pancreatitis on this admission but again severe abdominal pain and profuse diarrhea. Stool cultures showed C.Difficile colitis which is being treated with IV metronidazole and liquid oral vancomycin. He is also receiving IV methylprednisolone daily. He also takes Creon. On both this admission and the 09/20 admission, CT scan showed pancolitis. He tells me he is having a better day today with less diarrhea and slightly less abdominal pain. He is taking 1mg IV hydromorphone prn but takes it every 3 hours, as often as he can. He says the abdominal pain goes from pelvis up to his mid chest, no one area hurts more than another. His WBC count increased to 28.3K today. He is seen now in consultation. Review of Systems Review of Systems: All systems reviewed & are unremarkable except as noted in HPI and below (HPI) [facility] Past Medical History Medical History Alcohol use Asthma Bipolar disorder C. difficile colitis Chronic anemia Depression Diabetes Diarrhea Exocrine pancreatic insufficiency Familial hypertriglyceridemia Family history of colon cancer in father GERD (gastroesophageal reflux disease) Hematochezia Iron deficiency anemia Pancreatitis Proctitis Ulcerative colitis Surgical History Surgical History H/O excision of mass 02/19/21 Excision 2 cm scalp cyst, Excision 1 cm scalp cyst x4 H/O shoulder surgery History of umbilical hernia repair 25 years ago with mesh Family History Family History (Reviewe
[2023-10-22] MEDS: MELATONIN 5 MG TABLET 10 MG PO (21:09)
[2023-10-22] MEDS: MAGNESIUM OXIDE 200 MG TABLET PO (21:09)
[2023-10-22] MEDS: FENOFIBRATE 160 MG TABLET PO (21:10)
[2023-10-22] MEDS: SIMETHICONE 125 MG CHEW TAB PO (21:10)
[2023-10-22 21:24] VITALS: BP 108/67; PULSE 81; RESP 16; TEMP 37.1; O2SAT 95
[2023-10-23] MEDS: oxyCODONE HCL (*CRX) 5 MG TAB IR 10 MG PO ×5 (00:18→21:30)
[2023-10-23] MEDS: HYDROmorphone HCL INJ (*CRX) 1 MG/ML SYR IV PUSH ×6 (01:43→22:20)
[2023-10-23] MEDS: metroNIDAZOLE 500 MG/ISO 100ML 500 MG/100 ML BAG 100 MG IVPB ×3 (05:32→21:32)
[2023-10-23] MEDS: VANCOMYCIN ORAL 500 MG/10 ML SYRUP PO ×4 (05:32→23:00)
[2023-10-23 05:59] VITALS: BP 99/61; PULSE 92; RESP 16; TEMP 36.7; O2SAT 96
[2023-10-23 06:25] LABS: Hematocrit 35.2 % (42.0-52.0); Hemoglobin 10.9 g/dL (14.0-18.0); Mean Corpuscular Hemoglobin 29.4 pg (26-34); Mean Corpuscular Volume 94.9 fl (80-100); Mean Platelet Volume 9.7 fl (7.4-10.4); Platelet Count Result 341 k/mm3 (150-375); Red Blood Count 3.71 M/mm3 (4.6-6.20); Red Cell Distribution Width 14.3 % (11.5-14.5); White Blood Count 23.3 K/mm3 (4.5-10.0)
[2023-10-23 06:38] LABS: Alanine Aminotransferase 9 U/L (6-50); Albumin Level 2.9 g/dL (3.5-5.1); Alkaline Phosphatase 47 U/L (38-126); Anion Gap 8 mmol/L (4-12); Aspartate Amino Transferase 17 U/L (17-59); Bilirubin,Total 0.5 mg/dL (0.2-1.3); Blood Urea Nitrogen 14 mg/dL (9-20); Calcium 8.1 mg/dL (8.4-10.2); Carbon Dioxide 27 mmol/L (22-30); Chloride 97 mmol/L (98-107); Estimated CRCL calculation 122 ml/min; Estimated Glomerular Filt Rate > 60; Glucose 109 mg/dL (65-110); Potassium 4.1 mmol/L (3.4-5.0); Sodium 132 mmol/L (137-145)
[2023-10-23 06:45] LABS: CRP 20.4 mg/dL (<1.0)
[2023-10-23 07:08] LABS: Band Neutrophils Percent 28 % (0-6); Basophils Absolute Manual 0.23 K/mm3 (0.0-0.1); Basophils Percent Manual 1 % (0-1); Lymphocytes Absolute Manual 1.86 K/mm3 (1.1-4.5); Metamyelocytes Percent 7 %; Monocytes Absolute Manual 0.93 K/mm3 (0.1-0.90); Monocytes Percent Manual 4 % (3-9); Myelocytes Percent 5 %; Neutrophils Absolute Manual 17.47 K/mm3 (1.3-6.7); Neutrophils Percent Manual 47 % (46-73); Total Cells Counted 100
[2023-10-23 07:10] LABS: Dohle Bodies Present; Platelet Estimate Adequate (Adequate); Schistocytes None Seen
[2023-10-23 08:14] LABS: Glucose Point of Care 115 mg/dl (65-105)
[2023-10-23] MEDS: SODIUM CHLORIDE 0.9% IV 1,000 ML 125 ML IV CONT ×2 (08:40→17:26)
[2023-10-23] MEDS: POTASSIUM CHLORIDE 20 MEQ PACKET (FOR LIQUID) PO (08:40)
[2023-10-23] MEDS: EMPAGLIFLOZIN 10 MG TABLET PO (08:41)
[2023-10-23] MEDS: MULTIVIT W/ IRON, MINERALS 15 ML LIQUID (*BKC) PO (08:41)
[2023-10-23] MEDS: PANTOPRAZOLE SODIUM IV 40 MG VIAL IV PUSH (08:41)
[2023-10-23] MEDS: NICOTINE (*PBKC) 21 MG PATCH 1 PATCH TRANSDERM (08:41)
[2023-10-23] MEDS: DICYCLOMINE HCL 10 MG CAPSULE 20 MG PO ×4 (08:42→21:30)
[2023-10-23] MEDS: methylPREDNISolone SOD SUCC 40 MG VIAL IV PUSH (08:42)
[2023-10-23] MEDS: LIPASE/AMYLASE/PROTEASE 12,000 UNITS CAP 1 CAP PO ×3 (08:42→17:26)
[2023-10-23] MEDS: SACCHAROMYCES BOULARDII 250 MG CAPSULE PO ×3 (08:43→17:26)
--- NOTE | 2023-10-23 10:15 | PM.IMPN ---
Progress Note: A&P Assessment and Plan (1) Pancolitis: Code(s): K51.00 - Ulcerative (chronic) pancolitis without complications Status: Acute Assessment and Plan: - Hx of ulcerative colitis - last seen by GI in August of 2023 during last admission at [facility] for similar presentation/CT findings - CT abd/pelvis: 1. Pancolitis. 2. Mild ileocolic lymphadenopathy, likely reactive. - Zosyn started on 10/16, stopped 10/17 PM due to stool POSITIVE for c diff - pain control: TYL, [place], Dilaudid for breakthrough pain. - Continue IV Solu-Medrol - 10/18 added Dificid BID for c-diff colitis 10/20: Began crushing tablets yesterday evening as patient reports that whole pills were coming out with bowel movements Added oral vancomycin yesterday evening as well. Single dose of loperamide given yesterday to slow diarrheal stools Patient complaining continued inadequate pain control. Stopped [place] and changed to oxycodone with Dilaudid for breakthrough only. 10/21: Case discussed with ID pharmacist. Will discontinue Dificid as it likely is not being absorbed Adding IV flagyl given increasing white count Oxycodone was added yesterday but patient had not received a dose yet. I spoke with him about trying the oxycodone and using Dilaudid for breakthrough only. Adding Bentyl 10/22: WBC improving. Down to 23.3 from 28. Remains afebrile GI recommended surgery consult to have on stand by for acute deterioration. Surgery mentions needing possible total colectomy and proctectomy if toxic megacolon results. This would require transfer as proctectomy is not preformed here. Given the patient condition has improved overnight with changes to antibiotic regimen, will hold off on transfer at this time. Pain is better controlled. Currently rating at a 4/10. Continue oxy, dilaudid, and bentyl. Patient is going to try to eat more for lunch and dinner. Will re-evaluate tomorrow if he needs another form of nutrition. Hopefully he will continue to improve and central line and TPN will not be necessary. Dietitian will re-evaluate today (2) Diabetes: Code(s): E11.9 - Type 2 diabetes mellitus without complications Status: Acute Assessment and Plan: - hypoglycemia protocol - POC blood glucose ACHS - home medication: continue Jardiance - correct regimen ordered - low dose TIDWM - A1C 6% on 09/08/202310/21: labs reviewed. (3) C. difficile colitis: Code(s): A04.72 - Enterocolitis due to Clostridium difficile, not specified as recurrent Status: Acute Assessment and Plan: first episode, started on dificid and other systemic abx discontinued 10/20: Continued rising white blood cell count, severe pain and frequent stools. Added oral vancomycin and crushing Dificid to help absorb better. May be rising with steroid use as well? 10/21: See plan 1 (4) Ulcerative colitis: Qualifiers: Digestive disease complication type: without complication Ulcerative colitis location: ulcerative pancolitis Qualified Code(s): K51.00 - Ulcerative (chronic) pancolitis without complications Code(s): K51.90 - Ulcerative colitis, unspecified, without complications Status: Chronic Assessment and Plan: humira biosimilar at home (waiting for his insurance to approve 3rd dose of induction and then he can continue with maintenance)- GI will check with office tomorrow -continue IV steroids Solu-Medrol 40 mg twice daily 10/20: No scope at this time per GI 10/21: See plan 1 (5) Abdominal pain: Qualifiers: Abdominal location: generalized Qualified Code(s): R10.84 - Generalized abdominal pain Code(s): R10.9 - Unspecified abdominal pain Status: Acute Assessment and Plan: still having issues See above See above 1 (6) Exocrine pancreatic insufficiency: Code(s): K86.81 - Exocrine pancreatic insufficiency Status: Acute Assessment
[2023-10-23] MEDS: SODIUM CHLORIDE 0.9% IV 1,000 ML 999 ML IV CONT (11:10)
[2023-10-23 12:14] LABS: Glucose Point of Care 231 mg/dl (65-105)
[2023-10-23] MEDS: INSULIN ASPART (*BKC) 100 UNITS/ML SUB-Q (12:20)
--- NOTE | 2023-10-23 13:23 | PCNFU ---
Nutrition Follow-Up Complete: Suboptimal po intake related to altered GI function and appetite as evidenced by pt report. Goal:Diet advancement PO intake 75% and tolerance of diet Pt is progressing towards goal. Continue with same goal. Pt current nutrition is Low fiber, Ensure Enlive TID. Nutrition recommendation: Continue with current plan of care Last recorded weight is 76.2 kg. Bowel Motility: +BM 10/22 - noted C.diff+ Labs Reviewed: Hgb:10.9, HCT:35.2, Alb:2.9, NA:132, Glu:115 Meds Noted: jardiance, novolog, solumedrol, zofran, KCL Skin: WNL Additional Notes: Pt diet upgraded to low fiber, intake charted 50-100% of meals. Noted pt does not like the food here but is eating. Ensure Enlive ordered and pt is consuming. Continue with current plan of care at this time as pt is feeling better today. Monitor diet orders, intake, tolerance, wt, labs. Follow up in 5 days.
[2023-10-23 14:00] VITALS: BP 99/68; PULSE 84; RESP 16; TEMP 36.2; O2SAT 96
--- NOTE | 2023-10-23 15:55 | WPDGIPROGNO ---
Progress Note: A&P Assessment and Plan (1) C. difficile colitis: Code(s): A04.72 - Enterocolitis due to Clostridium difficile, not specified as recurrent Status: Acute Assessment and Plan: first episode, started on dificid and other systemic abx discontinued- initially noted that he was passing most of the capsules- it seems that was not absorbing dificid finally switched to iv flagyl and liquid oral vancomycin surgery on standby but clinically much better (2) Ulcerative colitis: Qualifiers: Ulcerative colitis location: ulcerative pancolitis Digestive disease complication type: without complication Qualified Code(s): K51.00 - Ulcerative (chronic) pancolitis without complications Code(s): K51.90 - Ulcerative colitis, unspecified, without complications Status: Chronic Assessment and Plan: humira biosimilar at home hoping that once he can leave the hospital he can resume humira, now complicated with c diff dose of steroids was decreased (3) Abdominal pain: Qualifiers: Abdominal location: generalized Qualified Code(s): R10.84 - Generalized abdominal pain Code(s): R10.9 - Unspecified abdominal pain Status: Acute Assessment and Plan: today this has improved continue to monitor closely (4) Exocrine pancreatic insufficiency: Code(s): K86.81 - Exocrine pancreatic insufficiency Status: Acute Assessment and Plan: low elastase in stool last time started on pancreatic enzymes previous h/o pancreatitis (5) Chronic anemia: Code(s): D64.9 - Anemia, unspecified Status: Acute Assessment and Plan: s/p iv iron probably due to uncontrolled UC Subjective Date/time seen: 10/23/23 15:55 Interval history: today finally he is feeling much better, last night had 13 BM's but since 7am only one and this is a significant improvement less pain and eating more he is less anxious today Review of Systems Review of Systems: All systems reviewed & are unremarkable except as noted in HPI and below Exam Const: General: comfortable and no acute distress HENMT: Face/Nose/Sinus: Normal nares present Mouth: Yes moist mucous membranes Eyes: General: appearance normal, both eyes and all related structures Neck: Neck: supple Resp: Effort & Inspection: normal respiratory effort Auscultation: clear to auscultation bilaterally Cardio: Rate: regular rate Rhythm: regular rhythm GI: Inspection: distended GI Palp: Yes Soft to palpation and Yes Tenderness to palpation present (GI) (less tender today, no rebound) Auscultation: normal bowel sounds Skin: General skin exam: normal color and no rashes or lesions noted Neuro: Speech: normal speech Motor exam (neuro): 5/5 motor strength present throughout Sensory Exam: normal sensation Other: A&O x4 Extrem: General: normal to inspection Psych: Mental Status: mental status grossly normal Affect: Anxious affect present Objective Data Vital Signs Vital Signs: Vital Signs - 24 hr 10/22/23 21:24 10/23/23 05:59 10/23/23 14:00 Temperature 98.8 F 98.0 F 97.2 F L Pulse Rate 81 92 84 Respiratory Rate 16 16 16 Blood Pressure 108/67 99/61 L 99/68 L Pulse Oximetry 95 96 96 Intake/Output Intake/Output: Intake & Output 10/20/23 10/21/23 10/22/23 10/23/23 23:59 23:59 23:59 23:59 Intake Total 4868 5514.0 3149.2 1458 Output Total 12 Balance 4868 5514.0 3137.2 1458 Meds/Results Medications: Active Medications Generic Name Dose Route Start Last Admin Trade Name Freq PRN Reason Stop Dose Admin Acetaminophen 650 mg 10/21/23 20:35 Acetaminophen Elixir 325 Mg/10.15 Ml Udc PO Q4H PRN Mild Pain (1-3) or Fever Lipase/Protease/Amylase 1 cap 10/18/23 17:00 10/23/23 12:23 Lipase/Amylase/Protease 12,000 Units Cap PO 1 cap TIDWM GRETA Administration Dextrose 12.5 gm 10/17/23 16:50 Dextrose 50% 25 Gm/50 Ml Syringe IV PUSH PRN
--- NOTE | 2023-10-23 16:15 | PM.PNGS ---
Progress Note: A&P Assessment and Plan (1) Pancolitis: Code(s): K51.00 - Ulcerative (chronic) pancolitis without complications Status: Acute Assessment and Plan: No evidence of toxicity today. Abdominal exam improved. Abdominal pain improved. Patient's white count is decreasing. I discussed his care with Dr. Montes. We both feel he is showing evidence of improvement. Continue present treatment. Unfortunately, diarrhea has not decreased as yet. (2) C. difficile colitis: Code(s): A04.72 - Enterocolitis due to Clostridium difficile, not specified as recurrent Status: Acute Assessment and Plan: Being treated. (3) Diarrhea: Qualifiers: Diarrhea type: unspecified type Qualified Code(s): R19.7 - Diarrhea, unspecified Code(s): R19.7 - Diarrhea, unspecified Status: Acute Assessment and Plan: 13-15 stools per day with some blood. (4) Ulcerative colitis: Qualifiers: Ulcerative colitis location: ulcerative pancolitis Digestive disease complication type: without complication Qualified Code(s): K51.00 - Ulcerative (chronic) pancolitis without complications Code(s): K51.90 - Ulcerative colitis, unspecified, without complications Status: Chronic Assessment and Plan: Receiving steroids as well as antibiotics for C diff. (5) Exocrine pancreatic insufficiency: Code(s): K86.81 - Exocrine pancreatic insufficiency Status: Acute Assessment and Plan: receiving Creon. Subjective Subjective Date/Time Seen: 10/23/23 16:15 Patient reports: pain is less, diarrhea ( No improvement in the diarrhea, over 10 stools per day with some blood.) and afebrile Review of Systems Review of Systems: All systems reviewed & are unremarkable except as noted in HPI and below ( HPI) Exam Const: General: cooperative, comfortable, no acute distress, well groomed and thin Orientation/consciousness: patient oriented x3 GI: Inspection: normal to inspection and non-distended GI Palp: Yes Soft to palpation, Yes Tenderness to palpation present (GI) ( much less tenderness than yesterday.), No Guarding due to palpation present (GI), No Rigid due to palpation and No Rebound tenderness present Objective Data Vital Signs Vital Signs: Vital Signs - 24 hr 10/22/23 21:24 10/23/23 05:59 10/23/23 14:00 Temperature 37.1 C 36.7 C 36.2 C L Pulse Rate 81 92 84 Respiratory Rate 16 16 16 Blood Pressure 108/67 99/61 L 99/68 L Pulse Oximetry 95 96 96 Intake/Output Intake/Output: Intake & Output 10/20/23 10/21/23 10/22/23 10/23/23 23:59 23:59 23:59 23:59 Intake Total 4868 5514.0 3149.2 1458 Output Total 12 Balance 4868 5514.0 3137.2 1458 Meds/Results Medications: Active Medications Generic Name Dose Route Start Last Admin Trade Name Freq PRN Reason Stop Dose Admin Acetaminophen 650 mg 10/21/23 20:35 Acetaminophen Elixir 325 Mg/10.15 Ml Udc PO Q4H PRN Mild Pain (1-3) or Fever Lipase/Protease/Amylase 1 cap 10/18/23 17:00 10/23/23 12:23 Lipase/Amylase/Protease 12,000 Units Cap PO 1 cap TIDWM GRETA Administration Dextrose 12.5 gm 10/17/23 16:50 Dextrose 50% 25 Gm/50 Ml Syringe IV PUSH PRN PRN Hypoglycemia Protocol Dicyclomine HCl 20 mg 10/22/23 17:00 10/23/23 12:23 Dicyclomine Hcl 10 Mg Capsule PO 20 mg QID GRETA Administration Divalproex Sodium 1,500 mg 10/17/23 21:00 10/22/23 21:10 Divalproex Sodium Er 500 Mg Tab.24h PO Not Given HS GRETA Empagliflozin 10 mg 10/18/23 09:00 10/23/23 08:41 Empagliflozin 10 Mg Tablet PO 10 mg DAILY GRETA Administration Fenofibrate 160 mg 10/17/23 21:00 10/22/23 21:10 Fenofibrate 160 Mg Tablet PO 160 mg HS GRETA Administration Glucagon 1 mg 10/17/23 16:50 Glucagon For Inj 1 Mg Vial IM PRN PRN Hypoglycemia Protocol Glucose 15 gm 10/17/23 16:50 Glucose Oral Gel 15 G
[2023-10-23 16:53] LABS: Glucose Point of Care 198 mg/dl (65-105)
[2023-10-23 20:00] VITALS: O2SAT 98
[2023-10-23 21:10] VITALS: O2SAT 98
[2023-10-23 21:13] LABS: Glucose Point of Care 195 mg/dl (65-105)
[2023-10-23] MEDS: MAGNESIUM OXIDE 200 MG TABLET PO (21:31)
[2023-10-23] MEDS: SIMETHICONE 125 MG CHEW TAB PO (21:31)
[2023-10-23] MEDS: FENOFIBRATE 160 MG TABLET PO (21:31)
[2023-10-23] MEDS: MELATONIN 5 MG TABLET 10 MG PO (21:31)
[2023-10-23 21:32] VITALS: BP 105/58; PULSE 71; RESP 16; TEMP 36.6; O2SAT 98
[2023-10-24] MEDS: oxyCODONE HCL (*CRX) 5 MG TAB IR 10 MG PO ×5 (01:40→22:10)
[2023-10-24] MEDS: SODIUM CHLORIDE 0.9% IV 1,000 ML 125 ML IV CONT ×4 (03:00→22:14)
[2023-10-24] MEDS: HYDROmorphone HCL INJ (*CRX) 1 MG/ML SYR IV PUSH ×4 (04:34→20:05)
[2023-10-24] MEDS: ONDANSETRON INJ 4 MG/2 ML VIAL IV PUSH (04:34)
[2023-10-24] MEDS: metroNIDAZOLE 500 MG/ISO 100ML 500 MG/100 ML BAG 100 MG IVPB ×3 (04:34→22:15)
[2023-10-24] MEDS: VANCOMYCIN ORAL 500 MG/10 ML SYRUP PO ×3 (04:35→17:14)
[2023-10-24 05:34] VITALS: BP 116/72; PULSE 83; RESP 16; TEMP 36.6; O2SAT 99
[2023-10-24 06:26] LABS: Lactic Acid Reflex 0.6 mmol/L (0.7-2.0)
--- NOTE | 2023-10-24 07:25 | PM.IMPN ---
Progress Note: A&P Assessment and Plan (1) Pancolitis: Code(s): K51.00 - Ulcerative (chronic) pancolitis without complications Status: Acute Assessment and Plan: - Hx of ulcerative colitis - last seen by GI in August of 2023 during last admission at [facility] for similar presentation/CT findings - CT abd/pelvis: 1. Pancolitis. 2. Mild ileocolic lymphadenopathy, likely reactive. - Zosyn started on 10/16, stopped 10/17 PM due to stool POSITIVE for c diff - pain control: TYL, [place], Dilaudid for breakthrough pain. - Continue IV Solu-Medrol - 10/18 added Dificid BID for c-diff colitis 10/20: Began crushing tablets yesterday evening as patient reports that whole pills were coming out with bowel movements Added oral vancomycin yesterday evening as well. Single dose of loperamide given yesterday to slow diarrheal stools Patient complaining continued inadequate pain control. Stopped [place] and changed to oxycodone with Dilaudid for breakthrough only. 10/21: Case discussed with ID pharmacist. Will discontinue Dificid as it likely is not being absorbed Adding IV flagyl given increasing white count Oxycodone was added yesterday but patient had not received a dose yet. I spoke with him about trying the oxycodone and using Dilaudid for breakthrough only. Adding Bentyl 10/22: WBC improving. Down to 23.3 from 28. Remains afebrile GI recommended surgery consult to have on stand by for acute deterioration. Surgery mentions needing possible total colectomy and proctectomy if toxic megacolon results. This would require transfer as proctectomy is not preformed here. Given the patient condition has improved overnight with changes to antibiotic regimen, will hold off on transfer at this time. Pain is better controlled. Currently rating at a 4/10. Continue oxy, dilaudid, and bentyl. Patient is going to try to eat more for lunch and dinner. Will re-evaluate tomorrow if he needs another form of nutrition. Hopefully he will continue to improve and central line and TPN will not be necessary. Dietitian will re-evaluate today 10/23: White count continues to decrease to 18.1 today Afebrile Vital signs stable Continue with current pain regimen Diet slowly improving Added banatrol for stool bulking IV fluids continue at 125 ml per hour. Patient clinically feels dry. Will add fluid bolus again today. Continue vancomycin and Flagyl (2) Diabetes: Code(s): E11.9 - Type 2 diabetes mellitus without complications Status: Acute Assessment and Plan: - hypoglycemia protocol - POC blood glucose ACHS - home medication: continue Jardiance - correct regimen ordered - low dose TIDWM - A1C 6% on 09/08/202310/21: labs reviewed. 10/23: labs reviewed (3) C. difficile colitis: Code(s): A04.72 - Enterocolitis due to Clostridium difficile, not specified as recurrent Status: Acute Assessment and Plan: first episode, started on dificid and other systemic abx discontinued 10/20: Continued rising white blood cell count, severe pain and frequent stools. Added oral vancomycin and crushing Dificid to help absorb better. May be rising with steroid use as well? 10/21: See plan 1 (4) Ulcerative colitis: Qualifiers: Digestive disease complication type: without complication Ulcerative colitis location: ulcerative pancolitis Qualified Code(s): K51.00 - Ulcerative (chronic) pancolitis without complications Code(s): K51.90 - Ulcerative colitis, unspecified, without complications Status: Chronic Assessment and Plan: humira biosimilar at home (waiting for his insurance to approve 3rd dose of induction and then he can continue with maintenance)- GI will check with office tomorrow -continue IV steroids Solu-Medrol 40 mg twice daily 10/20: No scope at this time per GI 10/21: See plan 1 (5) Abdominal pain: Qualifiers: Abdominal location: generalized
[2023-10-24 07:44] LABS: Hemoglobin 10.4 g/dL (14.0-18.0); Mean Corpuscular HGB Conc 30.6 g/dl (32-36); Mean Corpuscular Hemoglobin 29.1 pg (26-34); Mean Corpuscular Volume 95.2 fl (80-100); Mean Platelet Volume 10.4 fl (7.4-10.4); Platelet Count Result 346 k/mm3 (150-375); Red Blood Count 3.57 M/mm3 (4.6-6.20); Red Cell Distribution Width 14.5 % (11.5-14.5); White Blood Count 18.8 K/mm3 (4.5-10.0)
[2023-10-24] MEDS: EMPAGLIFLOZIN 10 MG TABLET PO (08:06)
[2023-10-24] MEDS: SACCHAROMYCES BOULARDII 250 MG CAPSULE PO (08:07)
[2023-10-24] MEDS: DICYCLOMINE HCL 10 MG CAPSULE 20 MG PO ×3 (08:07→17:14)
[2023-10-24] MEDS: LIPASE/AMYLASE/PROTEASE 12,000 UNITS CAP 1 CAP PO ×3 (08:07→17:13)
[2023-10-24] MEDS: PANTOPRAZOLE SODIUM IV 40 MG VIAL IV PUSH (08:07)
[2023-10-24] MEDS: methylPREDNISolone SOD SUCC 40 MG VIAL IV PUSH (08:07)
[2023-10-24] MEDS: NICOTINE (*PBKC) 21 MG PATCH 1 PATCH TRANSDERM (08:07)
--- NOTE | 2023-10-24 08:18 | PM.PNGS ---
Progress Note: A&P Assessment and Plan (1) Pancolitis: Code(s): K51.00 - Ulcerative (chronic) pancolitis without complications Status: Acute Assessment and Plan: It dominantly exam shows no evidence of toxicity or peritonitis. In fact his exam is improving. Pending white blood cell count today. CRP has continued to rise as of yesterday but today's result is not back as yet. No indication for urgent surgery at this time. (2) C. difficile colitis: Code(s): A04.72 - Enterocolitis due to Clostridium difficile, not specified as recurrent Status: Acute Assessment and Plan: Being treated with liquid oral vancomycin as well as IV metronidazole. Appears to be improving. (3) Diarrhea: Qualifiers: Diarrhea type: unspecified type Qualified Code(s): R19.7 - Diarrhea, unspecified Code(s): R19.7 - Diarrhea, unspecified Status: Acute Assessment and Plan: This is the patient's biggest frustration. He is still having 13 or 14 stools in less than 24 hours. They are particularly at night for reasons that are unclear. This makes him feel like he is not improving and he is considering transfer. (4) Ulcerative colitis: Qualifiers: Ulcerative colitis location: ulcerative pancolitis Digestive disease complication type: without complication Qualified Code(s): K51.00 - Ulcerative (chronic) pancolitis without complications Code(s): K51.90 - Ulcerative colitis, unspecified, without complications Status: Chronic Assessment and Plan: Continues to receive Solu-Medrol daily. Certainly complicates the ailment and its treatment. Subjective Subjective Date/Time Seen: 10/24/23 08:18 Patient reports: pain is less (Still having pain but not quite as severe), diarrhea (Still profuse, complains he can not sleep.) and afebrile Interval history: Patient expressing frustration due to the persistence of the diarrhea. He verbalized the possibility of transferring to [facility], particularly if the white blood cell count has not improved again today. Mostly he is frustrated with the persistent diarrhea as the abdominal pain is slightly better. Review of Systems Review of Systems: All systems reviewed & are unremarkable except as noted in HPI and below (HPI) Exam Const: General: comfortable, alert, awake and thin; No acute distress Orientation/consciousness: patient oriented x3 and No confusion GI: Inspection: normal to inspection, non-distended and scaphoid GI Palp: Yes Soft to palpation, Yes Tenderness to palpation present (GI) (Minimal tenderness this morning, no peritoneal signs at all.), No Guarding due to palpation present (GI), No Palpable mass present and No Rebound tenderness present Objective Data Vital Signs Vital Signs: Vital Signs - 24 hr 10/23/23 14:00 10/23/23 21:32 10/23/23 20:00 Temperature 36.2 C L 36.6 C Pulse Rate 84 71 Respiratory Rate 16 16 Blood Pressure 99/68 L 105/58 L Pulse Oximetry 96 98 98 Oxygen Delivery Room Air 10/23/23 21:10 10/24/23 05:34 Temperature 36.6 C Pulse Rate 83 Respiratory Rate 16 Blood Pressure 116/72 Pulse Oximetry 98 99 Oxygen Delivery Room Air Intake/Output Intake/Output: Intake & Output 10/21/23 10/22/23 10/23/23 10/24/23 23:59 23:59 23:59 23:59 Intake Total 5514.0 3149.2 4016 1600 Output Total 12 Balance 5514.0 3137.2 4016 1600 Meds/Results Medications: Active Medications Generic Name Dose Route Start Last Admin Trade Name Freq PRN Reason Stop Dose Admin Acetaminophen 650 mg 10/21/23 20:35 Acetaminophen Elixir 325 Mg/10.15 Ml Udc PO Q4H PRN Mild Pain (1-3) or Fever Lipase/Protease/Amylase 1 cap 10/18/23 17:00 10/24/23 08:07 Lipase/Amylase/Protease 12,000 Units Cap PO 1 cap TIDWM GRETA Administration Dextrose 12.5 gm 10/17/23 16:50 Dextrose 50% 25 Gm/50 Ml Syringe IV PUSH PRN PRN Hypoglycemia Anna
[2023-10-24 08:25] LABS: Alanine Aminotransferase 8 U/L (6-50); Albumin Level 2.7 g/dL (3.5-5.1); Alkaline Phosphatase 50 U/L (38-126); Anion Gap 5 mmol/L (4-12); Aspartate Amino Transferase 25 U/L (17-59); Bilirubin,Total 0.4 mg/dL (0.2-1.3); Blood Urea Nitrogen 13 mg/dL (9-20); Calcium 8.3 mg/dL (8.4-10.2); Carbon Dioxide 29 mmol/L (22-30); Chloride 99 mmol/L (98-107); Estimated CRCL calculation 123 ml/min; Estimated Glomerular Filt Rate > 60; Glucose 108 mg/dL (65-110); Magnesium 1.9 mg/dL (1.6-2.3); Sodium 133 mmol/L (137-145)
[2023-10-24 08:40] LABS: CRP 20.2 mg/dL (<1.0)
[2023-10-24 09:14] LABS: Band Neutrophils Percent 40 % (0-6); Eosinophils Absolute Manual 0.18 K/mm3 (0.02-0.50); Eosinophils Percent Manual 1 % (0-4); Lymphocytes Absolute Manual 3.38 K/mm3 (1.1-4.5); Lymphocytes Percent Manual 18 % (18-44); Monocytes Absolute Manual 2.44 K/mm3 (0.1-0.90); Monocytes Percent Manual 13 % (3-9); Neutrophils Absolute Manual 11.09 K/mm3 (1.3-6.7); Neutrophils Percent Manual 19 % (46-73); Promyelocytes Percent 9 %; Total Cells Counted 100
[2023-10-24 09:15] LABS: Platelet Estimate Adequate (Adequate)
[2023-10-24 09:16] LABS: Anisocytosis 1+; Basophilic Stippling 1+; Polychromasia 1+
[2023-10-24 09:17] LABS: Schistocytes None Seen
[2023-10-24 11:16] LABS: Glucose Point of Care 110 mg/dl (65-105)
[2023-10-24 11:44] LABS: Glucose Point of Care 200 mg/dl (65-105)
[2023-10-24] MEDS: SODIUM CHLORIDE 0.9% IV 1,000 ML 999 ML IV CONT (13:29)
--- NOTE | 2023-10-24 13:37 | WPDGIPROGNO ---
Progress Note: A&P Assessment and Plan (1) C. difficile colitis: Code(s): A04.72 - Enterocolitis due to Clostridium difficile, not specified as recurrent Status: Acute Assessment and Plan: started on dificid- noted that he was passing most of the capsules and not absorbing dificid finally switched to iv flagyl and liquid oral vancomycin- clinically better surgery on standby but overall improved, wbc trending down (2) Ulcerative colitis: Qualifiers: Ulcerative colitis location: ulcerative pancolitis Digestive disease complication type: without complication Qualified Code(s): K51.00 - Ulcerative (chronic) pancolitis without complications Code(s): K51.90 - Ulcerative colitis, unspecified, without complications Status: Chronic Assessment and Plan: humira biosimilar at home hoping that once he can leave the hospital he can resume humira, now complicated with c diff dose of steroids was decreased (3) Abdominal pain: Qualifiers: Abdominal location: generalized Qualified Code(s): R10.84 - Generalized abdominal pain Code(s): R10.9 - Unspecified abdominal pain Status: Acute Assessment and Plan: better continue to monitor closely (4) Exocrine pancreatic insufficiency: Code(s): K86.81 - Exocrine pancreatic insufficiency Status: Acute Assessment and Plan: low elastase in stool last time started on pancreatic enzymes previous h/o pancreatitis (5) Chronic anemia: Code(s): D64.9 - Anemia, unspecified Status: Acute Assessment and Plan: s/p iv iron probably due to uncontrolled UC Subjective Date/time seen: 10/24/23 13:37 Interval history: he is comfortable, normally at night he has more diarrhea but overall last 2 days some improvement. Review of Systems Review of Systems: All systems reviewed & are unremarkable except as noted in HPI and below Exam Const: General: comfortable, alert, awake and thin; No acute distress Orientation/consciousness: patient oriented x3 and No confusion HENMT: Face/Nose/Sinus: Normal nares present Eyes: Sclera: sclerae normal Neck: Neck: supple Resp: Effort & Inspection: normal respiratory effort Cardio: Rate: regular rate GI: Inspection: normal to inspection, non-distended and scaphoid GI Palp: Yes Soft to palpation, Yes Tenderness to palpation present (GI) (Minimal tenderness this morning, no rebound), No Guarding due to palpation present (GI), No Palpable mass present and No Rebound tenderness present Skin: General skin exam: normal color Neuro: Speech: normal speech Motor exam (neuro): 5/5 motor strength present throughout Extrem: General: normal to inspection Psych: Affect: Anxious affect present Objective Data Vital Signs Vital Signs: Vital Signs - 24 hr 10/23/23 14:00 10/23/23 21:32 10/23/23 20:00 Temperature 97.2 F L 98 F Pulse Rate 84 71 Respiratory Rate 16 16 Blood Pressure 99/68 L 105/58 L Pulse Oximetry 96 98 98 Oxygen Delivery Room Air 10/23/23 21:10 10/24/23 05:34 10/24/23 08:05 Temperature 97.8 F Pulse Rate 83 Respiratory Rate 16 Blood Pressure 116/72 Pulse Oximetry 98 99 Oxygen Delivery Room Air Room Air Intake/Output Intake/Output: Intake & Output 10/21/23 10/22/23 10/23/23 10/24/23 23:59 23:59 23:59 23:59 Intake Total 5514.0 3149.2 4016 2900 Output Total 12 Balance 5514.0 3137.2 4016 2900 Meds/Results Medications: Active Medications Generic Name Dose Route Start Last Admin Trade Name Freq PRN Reason Stop Dose Admin Acetaminophen 650 mg 10/21/23 20:35 Acetaminophen Elixir 325 Mg/10.15 Ml Udc PO Q4H PRN Mild Pain (1-3) or Fever Lipase/Protease/Amylase 1 cap 10/18/23 17:00 10/24/23 13:28 Lipase/Amylase/Protease 12,000 Units Cap PO 1 cap TIDWM GRETA Administration Dextrose 12.5 gm 10/17/23 16:50 Dextrose 50% 25 Gm/50 Ml Syringe IV PUSH PRN PRN
[2023-10-24 13:43] LABS: Glucose Point of Care 203 mg/dl (65-105)
[2023-10-24 14:00] VITALS: BP 107/57; PULSE 83; RESP 16; TEMP 36.8; O2SAT 96
--- NOTE | 2023-10-24 15:58 | PCPTNOTE ---
Pt is indep in the room for all bed mobility, transfers and ambulating without any assistive device at this time per nursing report; attempted to contact hospitalist, unable to get a response.
[2023-10-24 16:18] LABS: Glucose Point of Care 200 mg/dl (65-105)
[2023-10-24 20:04] LABS: Glucose Point of Care 186 mg/dl (65-105)
[2023-10-24] MEDS: SIMETHICONE 125 MG CHEW TAB PO (20:04)
[2023-10-24] MEDS: FENOFIBRATE 160 MG TABLET PO (20:05)
[2023-10-24] MEDS: MELATONIN 5 MG TABLET 10 MG PO (20:05)
[2023-10-24 20:37] VITALS: O2SAT 99
[2023-10-24 21:21] VITALS: BP 111/67; PULSE 64; RESP 13; TEMP 36.6; O2SAT 100
[2023-10-25] MEDS: VANCOMYCIN ORAL 500 MG/10 ML SYRUP PO ×4 (00:15→16:44)
[2023-10-25] MEDS: HYDROmorphone HCL INJ (*CRX) 1 MG/ML SYR IV PUSH ×5 (00:15→16:39)
[2023-10-25] MEDS: DICYCLOMINE HCL 10 MG CAPSULE 20 MG PO (03:44)
--- NOTE | 2023-10-25 04:28 | PC.NURSE ---
Pt requesting dilaudid frequently throughout this shift, reporting that the oxy does not work for his pain. Pt reports frequent trips to the bathroom this shift and that he has started seeing more blood in his stool. I have requested that he lets me know when he has a BM, so I can visualize what he is referring to and how much. Pt is tearful and stating he just wants something done, and is tired of felling this bad and tired of being this sick with little relief. Pt very emotional this shift and states his pain stays high and he is feeling worse, not better.
[2023-10-25 05:40] VITALS: BP 115/68; PULSE 81; RESP 12; TEMP 37.2; O2SAT 97
[2023-10-25] MEDS: oxyCODONE HCL (*CRX) 5 MG TAB IR 10 MG PO ×2 (05:48→12:03)
[2023-10-25] MEDS: metroNIDAZOLE 500 MG/ISO 100ML 500 MG/100 ML BAG 100 MG IVPB ×2 (05:48→13:50)
[2023-10-25 05:53] LABS: Hemoglobin 10.1 g/dL (14.0-18.0); Mean Corpuscular HGB Conc 30.6 g/dl (32-36); Mean Corpuscular Hemoglobin 29.4 pg (26-34); Mean Corpuscular Volume 95.9 fl (80-100); Mean Platelet Volume 9.9 fl (7.4-10.4); Platelet Count Result 301 k/mm3 (150-375); Red Blood Count 3.44 M/mm3 (4.6-6.20); Red Cell Distribution Width 14.7 % (11.5-14.5); White Blood Count 17.3 K/mm3 (4.5-10.0)
[2023-10-25] MEDS: SODIUM CHLORIDE 0.9% IV 1,000 ML 125 ML IV CONT ×2 (05:53→13:50)
[2023-10-25 06:05] LABS: Alanine Aminotransferase 9 U/L (6-50); Albumin Level 2.9 g/dL (3.5-5.1); Alkaline Phosphatase 48 U/L (38-126); Anion Gap 5 mmol/L (4-12); Aspartate Amino Transferase 24 U/L (17-59); Bilirubin,Total 0.5 mg/dL (0.2-1.3); Blood Urea Nitrogen 12 mg/dL (9-20); Carbon Dioxide 26 mmol/L (22-30); Chloride 100 mmol/L (98-107); Estimated CRCL calculation 166 ml/min; Estimated Glomerular Filt Rate > 60; Glucose 103 mg/dL (65-110); Sodium 131 mmol/L (137-145)
[2023-10-25 06:20] LABS: CRP 19.9 mg/dL (<1.0)
[2023-10-25 07:08] LABS: Platelet Estimate Adequate (Adequate)
[2023-10-25 07:09] LABS: Band Neutrophils Percent 29 % (0-6); Neutrophils Absolute Manual 10.55 K/mm3 (1.3-6.7); Neutrophils Percent Manual 32 % (46-73); Total Cells Counted 100
[2023-10-25 07:10] LABS: Eosinophils Absolute Manual 0.51 K/mm3 (0.02-0.50); Eosinophils Percent Manual 3 % (0-4); Lymphocytes Absolute Manual 3.28 K/mm3 (1.1-4.5); Lymphocytes Percent Manual 19 % (18-44); Monocytes Absolute Manual 1.03 K/mm3 (0.1-0.90); Monocytes Percent Manual 6 % (3-9)
[2023-10-25 07:13] LABS: Anisocytosis 1+; Myelocytes Percent 3 %; Polychromasia 1+; Promyelocytes Percent 8 %; Schistocytes None Seen
[2023-10-25 07:31] LABS: Glucose Point of Care 91 mg/dl (65-105)
--- NOTE | 2023-10-25 08:12 | PM.IMPN ---
Progress Note: A&P Assessment and Plan (1) Pancolitis: Code(s): K51.00 - Ulcerative (chronic) pancolitis without complications Status: Acute Assessment and Plan: - Hx of ulcerative colitis - last seen by GI in August of 2023 during last admission at [place] for similar presentation/CT findings - CT abd/pelvis: 1. Pancolitis. 2. Mild ileocolic lymphadenopathy, likely reactive. - Zosyn started on 10/16, stopped 10/17 PM due to stool POSITIVE for c diff - pain control: TYL, [place], Dilaudid for breakthrough pain. - Continue IV Solu-Medrol - 10/18 added Dificid BID for c-diff colitis 10/20: Began crushing tablets yesterday evening as patient reports that whole pills were coming out with bowel movements Added oral vancomycin yesterday evening as well. Single dose of loperamide given yesterday to slow diarrheal stools Patient complaining continued inadequate pain control. Stopped [place] and changed to oxycodone with Dilaudid for breakthrough only. 10/21: Case discussed with ID pharmacist. Will discontinue Dificid as it likely is not being absorbed Adding IV flagyl given increasing white count Oxycodone was added yesterday but patient had not received a dose yet. I spoke with him about trying the oxycodone and using Dilaudid for breakthrough only. Adding Bentyl 10/22: WBC improving. Down to 23.3 from 28. Remains afebrile GI recommended surgery consult to have on stand by for acute deterioration. Surgery mentions needing possible total colectomy and proctectomy if toxic megacolon results. This would require transfer as proctectomy is not preformed here. Given the patient condition has improved overnight with changes to antibiotic regimen, will hold off on transfer at this time. Pain is better controlled. Currently rating at a 4/10. Continue oxy, Dilaudid, and Bentyl. Patient is going to try to eat more for lunch and dinner. Will re-evaluate tomorrow if he needs another form of nutrition. Hopefully he will continue to improve and central line and TPN will not be necessary. Dietitian will re-evaluate today 10/23: White count continues to decrease to 18.1 today Afebrile Vital signs stable Continue with current pain regimen Diet slowly improving Added banatrol for stool bulking IV fluids continue at 125 ml per hour. Patient clinically feels dry. Will add fluid bolus again today. Continue vancomycin and Flagyl 10/24: WBC 17.3 Worsening abdominal pain this morning to right lower quadrant. CTA of abdomen and pelvis ordered stat Patient 11 bowel movements overnight with 5 bowel movements occurring at night that more explosive in nature with dark red blood and clots. Patient left stool and toilet for me to see. We can repeat a H&H later this afternoon. (2) Diabetes: Code(s): E11.9 - Type 2 diabetes mellitus without complications Status: Acute Assessment and Plan: - hypoglycemia protocol - POC blood glucose ACHS - home medication: continue Jardiance - correct regimen ordered - low dose TIDWM - A1C 6% on 09/08/202310/21: labs reviewed. 10/23: labs reviewed 10/24: labs reviewed (3) C. difficile colitis: Code(s): A04.72 - Enterocolitis due to Clostridium difficile, not specified as recurrent Status: Acute Assessment and Plan: first episode, started on dificid and other systemic abx discontinued 10/20: Continued rising white blood cell count, severe pain and frequent stools. Added oral vancomycin and crushing Dificid to help absorb better. May be rising with steroid use as well? 10/21: See plan 1 (4) Ulcerative colitis: Qualifiers: Digestive disease complication type: without complication Ulcerative colitis location: ulcerative pancolitis Qualified Code(s): K51.00 - Ulcerative (chronic) pancolitis without complications Code(s): K51.90 - Ulcerative colitis, unspecified, without complications Status: Chronic Asse
[2023-10-25] MEDS: methylPREDNISolone SOD SUCC 40 MG VIAL IV PUSH (08:48)
[2023-10-25] MEDS: EMPAGLIFLOZIN 10 MG TABLET PO (08:48)
[2023-10-25] MEDS: NICOTINE (*PBKC) 21 MG PATCH 1 PATCH TRANSDERM (08:48)
[2023-10-25] MEDS: PANTOPRAZOLE SODIUM IV 40 MG VIAL IV PUSH (08:48)
[2023-10-25] MEDS: LIPASE/AMYLASE/PROTEASE 12,000 UNITS CAP 1 CAP PO ×3 (08:48→16:39)
[2023-10-25] MEDS: ACETAMINOPHEN ELIXIR 325 MG/10.15 ML UDC 650 MG PO ×2 (08:56→13:50)
[2023-10-25 11:24] LABS: Glucose Point of Care 133 mg/dl (65-105)
--- NOTE | 2023-10-25 13:46 | WPDGIPROGNO ---
Progress Note: A&P Assessment and Plan (1) C. difficile colitis: Code(s): A04.72 - Enterocolitis due to Clostridium difficile, not specified as recurrent Status: Acute Assessment and Plan: started on dificid but noted that he was passing most of the capsules and not absorbing dificid finally switched to iv flagyl and liquid oral vancomycin last night more pain, also new onset of blood clots with stools, more pain pending new CT scan, wbc high but has improved consider transfer for colorectal evaluation in case his condition declines (2) Ulcerative colitis: Qualifiers: Ulcerative colitis location: ulcerative pancolitis Digestive disease complication type: without complication Qualified Code(s): K51.00 - Ulcerative (chronic) pancolitis without complications Code(s): K51.90 - Ulcerative colitis, unspecified, without complications Status: Chronic Assessment and Plan: humira biosimilar at home hoping that once he can leave the hospital he can resume humira, now complicated with c diff low dose steroid (3) Abdominal pain: Qualifiers: Abdominal location: generalized Qualified Code(s): R10.84 - Generalized abdominal pain Code(s): R10.9 - Unspecified abdominal pain Status: Acute Assessment and Plan: worsened today continue to monitor closely pending ct scan (4) Exocrine pancreatic insufficiency: Code(s): K86.81 - Exocrine pancreatic insufficiency Status: Acute Assessment and Plan: low elastase in stool last time started on pancreatic enzymes previous h/o pancreatitis (5) Chronic anemia: Code(s): D64.9 - Anemia, unspecified Status: Acute Assessment and Plan: s/p iv iron probably due to uncontrolled UC Subjective Date/time seen: 10/25/23 13:46 Interval history: last night again with more diarrhea and this time with blood clots, also more pain today- just came back from another CT scan abdomen Review of Systems Review of Systems: All systems reviewed & are unremarkable except as noted in HPI and below Exam Const: General: alert, awake and thin Orientation/consciousness: patient oriented x3 and No confusion HENMT: Face/Nose/Sinus: Normal nares present Eyes: Sclera: sclerae normal Neck: Neck: supple Resp: Effort & Inspection: normal respiratory effort Cardio: Rate: regular rate GI: Inspection: normal to inspection, non-distended and scaphoid GI Palp: Yes Soft to palpation, Yes Tenderness to palpation present (GI) (more tender today, no rebound), No Guarding due to palpation present (GI) and No Palpable mass present Skin: General skin exam: normal color Neuro: Speech: normal speech Motor exam (neuro): 5/5 motor strength present throughout Extrem: General: normal to inspection Psych: Affect: Anxious affect present Objective Data Vital Signs Vital Signs: Vital Signs - 24 hr 10/24/23 14:00 10/24/23 21:21 10/24/23 20:00 Temperature 98.2 F 97.8 F Pulse Rate 83 64 Respiratory Rate 16 13 Blood Pressure 107/57 L 111/67 Pulse Oximetry 96 100 Oxygen Delivery Room Air 10/24/23 20:37 10/25/23 05:40 10/25/23 08:45 Temperature 99.0 F Pulse Rate 81 Respiratory Rate 12 Blood Pressure 115/68 Pulse Oximetry 99 97 Oxygen Delivery Room Air Room Air Intake/Output Intake/Output: Intake & Output 10/22/23 10/23/23 10/24/23 10/25/23 23:59 23:59 23:59 23:59 Intake Total 3149.2 4016 6418.7 1946.3 Output Total 12 Balance 3137.2 4016 6418.7 1946.3 Meds/Results Medications: Active Medications Generic Name Dose Route Start Last Admin Trade Name Freq PRN Reason Stop Dose Admin Acetaminophen 650 mg 10/21/23 20:35 10/25/23 08:56 Acetaminophen Elixir 325 Mg/10.15 Ml Udc PO 650 mg Q4H PRN Administration Mild Pain (1-3) or Fever Lipase/Protease/Amylase 1 cap 10/18/23 17:00 10/25/23 12:04 Lipase/Amylase/Protease 12,000 Units Cap PO 1
[2023-10-25 13:54] LABS: Hematocrit 33.9 % (42.0-52.0); Hemoglobin 10.3 g/dL (14.0-18.0)
[2023-10-25 14:00] VITALS: BP 93/59; PULSE 68; RESP 16; TEMP 36.6; O2SAT 98
--- NOTE | 2023-10-25 14:28 | WPDPN ---
Subjective Date/time seen: 10/25/23 14:28 Interval history: Patient's clinical status seems to have worsened. Having more diarrhea with bloody clots now. White blood cell count still around 18,000 having more pain. Repeat CT scan abdomen pelvis showed continue diffuse farley colitis without perforation. Patient was seen by Dr. Montes from the GI service and and hospitalist today and plans are being made to try to get the patient transferred to tertiary care facility in [place]. Given his worsening status and likely need for total colectomy if he does not improve then I would agree that transfer would be reasonable. At the present time does not have an acute surgical abdomen knee emergent laparotomy and colon resection. Disposition as per primary service as they are working on trying to get transfer for the patient. Objective Data Vital Signs Vital Signs: Vital Signs - 24 hr 10/24/23 21:21 10/24/23 20:00 10/24/23 20:37 Temperature 36.6 C Pulse Rate 64 Respiratory Rate 13 Blood Pressure 111/67 Pulse Oximetry 100 99 Oxygen Delivery Room Air Room Air 10/25/23 05:40 10/25/23 08:45 Temperature 37.2 C Pulse Rate 81 Respiratory Rate 12 Blood Pressure 115/68 Pulse Oximetry 97 Oxygen Delivery Room Air Intake/Output Intake/Output: Intake & Output 10/22/23 10/23/23 10/24/23 10/25/23 23:59 23:59 23:59 23:59 Intake Total 3149.2 4016 6418.7 3040.1 Output Total 12 Balance 3137.2 4016 6418.7 3040.1 Meds/Results Medications: Active Medications Generic Name Dose Route Start Last Admin Trade Name Freq PRN Reason Stop Dose Admin Acetaminophen 650 mg 10/21/23 20:35 10/25/23 13:50 Acetaminophen Elixir 325 Mg/10.15 Ml Udc PO 650 mg Q4H PRN Administration Mild Pain (1-3) or Fever Lipase/Protease/Amylase 1 cap 10/18/23 17:00 10/25/23 12:04 Lipase/Amylase/Protease 12,000 Units Cap PO 1 cap TIDWM GRETA Administration Dextrose 12.5 gm 10/17/23 16:50 Dextrose 50% 25 Gm/50 Ml Syringe IV PUSH PRN PRN Hypoglycemia Protocol Dicyclomine HCl 20 mg 10/24/23 18:53 10/25/23 03:44 Dicyclomine Hcl 10 Mg Capsule PO 20 mg QID PRN Administration Abdominal Cramping Divalproex Sodium 1,500 mg 10/17/23 21:00 10/24/23 20:05 Divalproex Sodium Er 500 Mg Tab.24h PO Not Given HS GRETA Empagliflozin 10 mg 10/18/23 09:00 10/25/23 08:48 Empagliflozin 10 Mg Tablet PO 10 mg DAILY GRETA Administration Fenofibrate 160 mg 10/17/23 21:00 10/24/23 20:05 Fenofibrate 160 Mg Tablet PO 160 mg HS GRETA Administration Glucagon 1 mg 10/17/23 16:50 Glucagon For Inj 1 Mg Vial IM PRN PRN Hypoglycemia Protocol Glucose 15 gm 10/17/23 16:50 Glucose Oral Gel 15 Gm Of Glucse In 37.5 Gm Tube PO PRN PRN Hypoglycemia Protocol Hydromorphone HCl 1 mg 10/22/23 14:05 10/25/23 13:50 Hydromorphone Hcl Inj (*Crx) 1 Mg/Ml Syr IV PUSH 1 mg Q3H PRN Administration Pain Rated 7-10 Sodium Chloride 1,000 mls @ 125 mls/hr 10/17/23 15:05 10/25/23 13:50 Normal Saline Iv IV CONT 125 mls/hr .Q8H GRETA Administration Dextrose 1,000 mls @ 100 mls/hr 10/17/23 16:50 Dextrose 5% 1,000 Ml IVPB PRN PRN Hypoglycemia Protocol Metronidazole 500 mg in 100 mls @ 100 mls/hr 10/22/23 13:30 10/25/23 13:50 Flagyl 500 Mg/Iso Soln 100 Ml IVPB 100 mls/hr Q8HR GRETA Administration Insulin Aspart 2 - 5 units 10/17/23 17:00 10/25/23 11:46 Insulin Aspart (*Bkc) 100 Units/Ml SUB-Q Not Given TIDWM GRETA Protocol Lansoprazole 30 mg 10/22/23 09:00 10/22/23 08:55 Lansoprazole Odt 30 Mg Tab.Rap.Dr PO 30 mg QAM GRETA Administration Melatonin 10 mg 10/19/23 21:00 10/24/23 20:05 Melatonin 5 Mg Tablet PO 10 mg HS GRETA Administration Methylprednisolone Sodium Succinate 40 mg 10/22/23 09:00 10/25/23 08:48 Methylprednisolone Sod Succ 40 Mg Vial IV PUSH 40 mg DA
--- NOTE | 2023-10-25 15:17 | P.TS_ITS ---
Transfer Discharge Sum: Prov Provider Date of admission: 10/17/23 15:05 Primary care physician: Jessica Tuttle, Admitting clinician: Nuno Gamble MD Consults: 10/17/23 15:07 Consult to Physician Routine Comment: Consulting Provider: Dewey Alexis Reason for consultation: pancolitis Has provider been notified: Yes 10/22/23 Consult to Physician Routine Comment: Spoke to exchange 10.22.23 @ 1620-/ Consulting Provider: Sarbjit Rush call center coordinator/MD group to consult: surgery Reason for consultation: ulcerative colitis with severe C diff Has provider been notified: Yes Receiving physician/facility: Dr Quentin Escobar Jr DS: Admitting Diagnosis Discharge Date 10/25/23 Admitting Diagnosis abdominal pain DS: Discharge Diagnosis Discharge Diagnosis (1) Pancolitis: Code(s): K51.00 - Ulcerative (chronic) pancolitis without complications Status: Acute Assessment and Plan: - Hx of ulcerative colitis - last seen by GI in August of 2023 during last admission at [facility] for similar presentation/CT findings - CT abd/pelvis: 1. Pancolitis. 2. Mild ileocolic lymphadenopathy, likely reactive. - Zosyn started on 10/16, stopped 10/17 PM due to stool POSITIVE for c diff - pain control: TYL, [place], Dilaudid for breakthrough pain. - Continue IV Solu-Medrol - 10/18 added Dificid BID for c-diff colitis 10/20: Began crushing tablets yesterday evening as patient reports that whole pills were coming out with bowel movements Added oral vancomycin yesterday evening as well. Single dose of loperamide given yesterday to slow diarrheal stools Patient complaining continued inadequate pain control. Stopped [place] and changed to oxycodone with Dilaudid for breakthrough only. 10/21: * Case discussed with ID pharmacist. * Will discontinue Dificid as it likely is not being absorbed * Adding IV flagyl given increasing white count * Oxycodone was added yesterday but patient had not received a dose yet. I spoke with him about trying the oxycodone and using Dilaudid for breakthrough only. * Adding Bentyl 10/22: * WBC improving. Down to 23.3 from . * Remains afebrile * GI recommended surgery consult to have on stand by for acute deterioration. Surgery mentions needing possible total colectomy and proctectomy if toxic megacolon results. This would require transfer as proctectomy is not preformed here. Given the patient condition has improved overnight with changes to antibiotic regimen, will hold off on transfer at this time. * Pain is better controlled. Currently rating at a 4/10. Continue oxy, Dilaudid, and Bentyl. * Patient is going to try to eat more for lunch and dinner. Will re-evaluate tomorrow if he needs another form of nutrition. Hopefully he will continue to improve and central line and TPN will not be necessary. * Dietitian will re-evaluate today 10/23: * White count continues to decrease to 18.1 today * Afebrile * Vital signs stable * Continue with current pain regimen * Diet slowly improving * Added banatrol for stool bulking * IV fluids continue at 125 ml per hour. Patient clinically feels dry. Will add fluid bolus again today. * Continue vancomycin and Flagyl 10/24: * WBC 17.3 * Worsening abdominal pain this morning to right lower quadrant. * CTA of abdomen and pelvis ordered stat * Patient 11 bowel movements overnight with 5 bowel movements occurring at night that more ex
--- NOTE | 2023-10-25 15:17 | PM.TDS ---
Transfer Discharge Sum: Prov Provider Date of admission: 10/17/23 15:05 Primary care physician: Jessica Tuttle, Admitting clinician: Nuno Gamble MD Consults: 10/17/23 15:07 Consult to Physician Routine Comment: Consulting Provider: Dewey Alexis Reason for consultation: pancolitis Has provider been notified: Yes 10/22/23 Consult to Physician Routine Comment: Spoke to exchange 10.22.23 @ 1620-/ Consulting Provider: Sarbjit Rush inbound call center representative/MD group to consult: surgery Reason for consultation: ulcerative colitis with severe C diff Has provider been notified: Yes Receiving physician/facility: Dr Quentin Escobar Jr DS: Admitting Diagnosis Discharge Date 10/25/23 Admitting Diagnosis abdominal pain DS: Discharge Diagnosis Discharge Diagnosis (1) Pancolitis: Code(s): K51.00 - Ulcerative (chronic) pancolitis without complications Status: Acute Assessment and Plan: - Hx of ulcerative colitis - last seen by GI in August of 2023 during last admission at [facility] for similar presentation/CT findings - CT abd/pelvis: 1. Pancolitis. 2. Mild ileocolic lymphadenopathy, likely reactive. - Zosyn started on 10/16, stopped 10/17 PM due to stool POSITIVE for c diff - pain control: TYL, [place], Dilaudid for breakthrough pain. - Continue IV Solu-Medrol - 10/18 added Dificid BID for c-diff colitis 10/20: Began crushing tablets yesterday evening as patient reports that whole pills were coming out with bowel movements Added oral vancomycin yesterday evening as well. Single dose of loperamide given yesterday to slow diarrheal stools Patient complaining continued inadequate pain control. Stopped [place] and changed to oxycodone with Dilaudid for breakthrough only. 10/21: Case discussed with ID pharmacist. Will discontinue Dificid as it likely is not being absorbed Adding IV flagyl given increasing white count Oxycodone was added yesterday but patient had not received a dose yet. I spoke with him about trying the oxycodone and using Dilaudid for breakthrough only. Adding Bentyl 10/22: WBC improving. Down to 23.3 from . Remains afebrile GI recommended surgery consult to have on stand by for acute deterioration. Surgery mentions needing possible total colectomy and proctectomy if toxic megacolon results. This would require transfer as proctectomy is not preformed here. Given the patient condition has improved overnight with changes to antibiotic regimen, will hold off on transfer at this time. Pain is better controlled. Currently rating at a 4/10. Continue oxy, Dilaudid, and Bentyl. Patient is going to try to eat more for lunch and dinner. Will re-evaluate tomorrow if he needs another form of nutrition. Hopefully he will continue to improve and central line and TPN will not be necessary. Dietitian will re-evaluate today 10/23: White count continues to decrease to 18.1 today Afebrile Vital signs stable Continue with current pain regimen Diet slowly improving Added banatrol for stool bulking IV fluids continue at 125 ml per hour. Patient clinically feels dry. Will add fluid bolus again today. Continue vancomycin and Flagyl 10/24: WBC 17.3 Worsening abdominal pain this morning to right lower quadrant. CTA of abdomen and pelvis ordered stat Patient 11 bowel movements overnight with 5 bowel movements occurring at night that more explosive in nature with dark red blood and clots. Patient left stool and toilet for me to see. We can repeat a H&H later this afternoon. (2) Diabetes: Code(s): E11.9 - Type 2 diabetes mellitus without complications Status: Acute Assessment and Plan: - hypoglycemia protocol - POC blood glucose ACHS - home medication: continue Jardiance - correct regimen ordered - low dose TIDWM - A1C 6% on 09/08/202310/21: labs reviewed. 10/23: labs reviewed 10/24: labs reviewed (3) C. difficile co
[2023-10-25 16:31] LABS: Glucose Point of Care 187 mg/dl (65-105)
[2023-10-29 18:28] LABS: Calprotectin, Stool 3850 mcg/g
[2023-10-29 18:53] LABS: TPMT Activity 21
== END 2023-10-25 17:00 | disposition short-term general hospital (02) | DRG 387 ==
LOC: ANHED 15:05 → ANH3MEDSUR 15:53
PROVIDERS: Internal Medicine; Internal Medicine Gastroenterology; Nurse Practitioner; Student in an Organized Health Care Education/Training Program; Surgery; Admitting Provider Internal Medicine; Emergency Provider Family Medicine; PCP Family Medicine; Visit Provider Nurse Practitioner Acute Care
DX: K51.018 Ulcerative (chronic) pancolitis with other complication (principal); A04.72 Enterocolitis due to Clostridium difficile, not specified as recurrent; D64.9 Anemia, unspecified; E11.9 Type 2 diabetes mellitus without complications; F31.9 Bipolar disorder, unspecified; D50.9 Iron deficiency anemia, unspecified; F17.290 Nicotine dependence, other tobacco product, uncomplicated; K86.81 Exocrine pancreatic insufficiency; K21.9 Gastro-esophageal reflux disease without esophagitis; Z79.84 Long term (current) use of oral hypoglycemic drugs
CPT/HCPCS: 36415; 74174; 74177; 80048; 80053; 81001; 82657; 82948; 83540; 83550; 83605; 83690; 83735; 83993; 84145; 85014; 85018; 85025; 85027; 86140; 87040; 87493; 96361; 96374; 96375; 97161; 97165; 99285; A9270; C9113; J1170; J1756; J1815; J1836; J2270; J2405; J2543; J2919; J7030; J7050; Q9967